=== PATIENT | female | born 1950 | race Caucasian/White ===

== ENCOUNTER 2020-06-01 15:21 | Outpatient (REF) | payer MEDICARE, SELFPAY ==
--- NOTE | 2020-06-01 | MM_ITS ---
EXAMINATION: MM SCREENING DIGITAL BREAST TOMOSYNTHESIS, BILATERAL CLINICAL INFORMATION: Screening. Asymptomatic. The lifetime risk of breast cancer based on the Tyrer-Cuzick Model is 4%. COMPARISON: Mammography: 05/27/2019, 03/19/2018 TECHNIQUE: Digital breast tomosynthesis is performed in both the craniocaudal and mediolateral oblique views along with computer-aided detection (CAD). Synthesized 2D images are generated from the tomosynthesis. Additional left MLO view is provided. FINDINGS: There are scattered areas of fibroglandular density (ACR BI-RADS breast composition Category b). There are no significant masses, abnormal calcifications, or other abnormalities. The axillary nodes are stable. The skin contours are smooth. No significant changes. IMPRESSION: No mammographic evidence of malignancy. ASSESSMENT: BI-RADS 1: Negative RECOMMENDATION: Routine annual mammography screening. This patient's information was entered into a reminder system with a target due date for their next mammogram.
== END 2020-06-01 15:22 | disposition home or self-care (01) ==
LOC: HO.MAMMO 15:21
PROVIDERS: PCP Internal Medicine; Visit Provider Internal Medicine
DX: Z12.31 Encounter for screening mammogram for malignant neoplasm of breast (principal)
CPT/HCPCS: 77063; 77067

== ENCOUNTER 2020-08-25 11:37 | Outpatient (REF) | payer MEDICARE, SELFPAY ==
[2020-08-25 13:38] LABS: MANUAL DIFF FLAG NO
[2020-08-25 13:50] LABS: Basophils Absolute Auto 0.1 X10*3/uL (0.0-0.2); Basophils Percent Auto 0.7 % (0-2); Eosinophils Absolute Auto 0.2 X10*3/uL (0.0-0.4); Hematocrit 41.5 % (37-47); Hemoglobin 13.8 g/dl (12.0-16.0); Imm Gran Abs Auto 0.02 X10*3/uL (0.00-0.03); Imm Gran Pct Auto 0.2 % (0.0-0.4); Lymphocytes Absolute Auto 2.5 X10*3/uL (1.2-4.9); Mean Corpuscular HGB Conc 33.3 g/dl (31.0-35.0); Mean Corpuscular Hemoglobin 30.9 pg (27.0-33.0); Mean Corpuscular Volume 92.8 fL (80-98); Monocytes Absolute Auto 0.7 X10*3/uL (0.1-1.2); Monocytes Percent Auto 7.6 % (2-11); Neutrophils Absolute Auto 5.5 X10*3/uL (2.0-8.3); Neutrophils Percent Auto 61.5 % (45-73); Platelet Count 402 X10*3/uL (160-400); Red Blood Count 4.47 X10*6/uL (4.20-5.50); Red Cell Distribution Width 12.9 % (11.0-16.0)
[2020-08-25 14:17] LABS: Alanine Aminotransferase 21 U/L (0-31); Albumin Level 4.2 g/dL (3.5-5.0); Alkaline Phosphatase 96 U/L (39-117); Anion Gap 16 (12-20); Aspartate Amino Transferase 25 U/L (5-31); Bilirubin Total 0.2 mg/dL (0.0-1.0); Blood Urea Nitrogen 11 mg/dL (9-16); Calcium 9.1 mg/dL (8.4-10.2); Carbon Dioxide 24 mmol/L (22-29); Chloride 103 mmol/L (96-108); Estimated Glomerular Filt Rate > 60; Glucose Random 97 mg/dL (60-115); Potassium 4.5 mmol/l (3.3-5.1); Sodium 138 mmol/L (135-145); Total Protein 6.7 g/dL (6.5-8.0)
== END 2020-08-25 11:38 | disposition home or self-care (01) ==
LOC: HO.10HDL 11:37
PROVIDERS: Visit Provider Internal Medicine
DX: J44.9 Chronic obstructive pulmonary disease, unspecified (principal); E78.00 Pure hypercholesterolemia, unspecified; M81.0 Age-related osteoporosis without current pathological fracture
CPT/HCPCS: 36415; 80053; 85025

== ENCOUNTER 2021-04-12 09:03 | Day surgery (SDC) | payer MEDICARE, SELFPAY ==
[2021-04-07 09:41] VITALS: BMI 26.5
[2021-04-12 10:04] VITALS: BP 119/62; PULSE 72; RESP 16; TEMP 35.6; O2SAT 94
[2021-04-12] MEDS: Lactated Ringers 1,000 ML 50 ML IVCONT (10:13)
--- NOTE | 2021-04-12 10:16 | P.CONAN_ITS ---
[facility] Past Medical History Medical History COPD (chronic obstructive pulmonary disease) Elevated cholesterol Hearing loss Surgical History Surgical History H/O colonoscopy History of dental sikh History of hip surgery Hx of dilation and curettage History of Problems with Anesthesia: No Social History Social History Patient Tobacco Use Status: Current everyday Tobacco user Tobacco use type: Cigarette Cigarette Packs Per Day: 1 Cigarettes Per Day: 20.0 Advance Directives Information Provided: No Advance Directives on File: No Meds Allergies Allergy/AdvReac Type Severity Reaction Status Date / Time buspirone [From BUSPAR] Allergy Intermediate TREMORS,PANIC Verified 04/07/21 09:43 ATTACK prednisone [PREDNISONE] Allergy Intermediate BLEEDING, Verified 04/07/21 09:43 agitation bupropion [From WELLBUTRIN] AdvReac Severe AUDITORY Verified 04/07/21 09:43 HALLUCINATIONS aripiprazole [From ABILIFY] AdvReac Intermediate DOUBLE Verified 04/07/21 09:43 VISION,PANIC ATTACK paroxetine [From PAXIL] AdvReac Intermediate PANIC Verified 04/07/21 09:43 ATTACKS procaine [From NOVOCAIN] AdvReac Mild fregoso when Verified 04/07/21 09:43 wears off CHLORINE AdvReac Intermediate hayfever Uncoded 04/07/21 09:24 type reaction drug sensitivity AdvReac Intermediate side Uncoded 04/07/21 09:38 effects from many meds Home Medications Medication Instructions Recorded Confirmed Last Taken Type citalopram 20 mg tablet 1 tab PO DAILY 04/07/21 04/07/21 04/12/21 03:30 History latanoprost 0.005 % eye drops 1 drp OPHTHALMIC (EYE) BEDTIME 04/07/21 04/07/21 Unknown History simvastatin 40 mg tablet 1 tab PO DAILY 04/07/21 04/07/21 Unknown History Exam Exam Date and Time: April 12, 2021 1016 Height,Weight and Vital Signs: Height 5 ft 5.5 in Weight 73.482 kg Last Vital Signs Temp 96.1 F L 04/12/21 10:04 Pulse 72 04/12/21 10:04 Resp 16 04/12/21 10:04 BP 119/62 04/12/21 10:04 Pulse Ox 94 04/12/21 10:04 Airway Mallampati Class: II TM Dist: >3cm Neck ROM: Full Heart: RRR Lungs: CTA Assessment and Plan Assessment Anesthesia Assessment: Anesthesia Plan Discussed and Chart Reviewed Final Anesthetic Review History of Problems with Anesthesia: No NPO: Yes ASA Class: II Final Preanesthetic Review: Meds/Allgs Chart Reviewed, Consent Obtained/Reviewed and Anes Risks/Benef Reviewed Patient Risk: Low Procedure Risk: Low Anesthetic Plan Anesthetic Plan: MAC: Disposition: Standard PACU
--- NOTE | 2021-04-12 10:40 | MHC.SHP ---
Pre-Procedural Eval Section A Date of Service: 04/12/21 The patient is an INPATIENT: No Changes since office visit: No Cold of Flu in the past 2 weeks, No New Medical Problems, No Changes in Medication and No Patient answered all questions The History & Physical has been completed within 30 days and I have reviewed it.: Yes Section B Chief Complaint: screening Allergies: Allergies Allergy/AdvReac Type Severity Reaction Status Date / Time buspirone [From BUSPAR] Allergy Intermediate TREMORS,PANIC Verified 04/07/21 09:43 ATTACK prednisone [PREDNISONE] Allergy Intermediate BLEEDING, Verified 04/07/21 09:43 agitation bupropion [From WELLBUTRIN] AdvReac Severe AUDITORY Verified 04/07/21 09:43 HALLUCINATIONS aripiprazole [From ABILIFY] AdvReac Intermediate DOUBLE Verified 04/07/21 09:43 VISION,PANIC ATTACK paroxetine [From PAXIL] AdvReac Intermediate PANIC Verified 04/07/21 09:43 ATTACKS procaine [From NOVOCAIN] AdvReac Mild fregoso when Verified 04/07/21 09:43 wears off CHLORINE AdvReac Intermediate hayfever Uncoded 04/07/21 09:24 type reaction drug sensitivity AdvReac Intermediate side Uncoded 04/07/21 09:38 effects from many meds Plan I have reviewed the history and physical and performed a pertinent physical examination on my patient. No changes have occurred unless specified.
[2021-04-12 11:15] VITALS: BP 101/51; PULSE 69; RESP 18; TEMP 36.2; O2SAT 99
--- NOTE | 2021-04-12 11:17 | P.BOP_ITS ---
Brief Operative Note Date of Service: 04/12/21 Pre-op diagnosis: screening Post-op diagnosis: same Procedure: colonosocpy Surgeon: Harrison Mendoza Anesthesia: MAC Was an Behavior Interventionist used for this Procedure?: No Estimated blood loss (mL): 0 Pathology: none sent Condition: stable Disposition: PACU
--- NOTE | 2021-04-12 11:24 | OP_ITS ---
SURGEON: Harrison Mendoza MD INDICATIONS: Colon cancer screening and family history of colon cancer. PREOPERATIVE DIAGNOSIS: POSTOPERATIVE DIAGNOSIS: PROCEDURE PERFORMED: Colonoscopy to the terminal ileum. ESTIMATED BLOOD LOSS: COMPLICATIONS: ANESTHESIA: ASSISTANTS: SPECIMENS: MEDICATIONS: Monitored anesthesia care. DESCRIPTION OF PROCEDURE: History and physical performed. The risks and benefits of the procedure were explained to the patient. Informed consent was obtained. The patient was placed in the left lateral decubitus position. A digital rectal exam was performed and was found to be normal. The Olympus pediatric video colonoscope was introduced into the rectum and advanced to the cecum without difficulty. The cecum was identified by transillumination, palpation, and identification of ileocecal valve. Examination was performed and the scope was removed. She tolerated the procedure well and was taken to recovery area in stable condition. FINDINGS: The terminal ileum was normal. The visualized colonic mucosa was normal. There was a large amount of liquid and solid stool left, which was washed and suctioned. This limited the sensitivity examination for detection of small polyps. The patient's previously identified hyperplastic polyps were seen in the rectum, but were not biopsied as they had been biopsied in the past. There were approximately 3 that were identified, all were less than 5 mm. Retroflexed examination showed some internal hemorrhoids. IMPRESSION: Negative colonoscopy. RECOMMENDATIONS: 1. Follow up as needed. 2. Consider repeat examination in 5 years. This will be optional based on the patient's age. MD ANTHONY Major/CECILIOL / [id number]
[2021-04-12 11:30] VITALS: BP 105/60; PULSE 67; RESP 16; TEMP 36.2; O2SAT 96
== END 2021-04-12 11:55 | disposition home or self-care (01) ==
PROVIDERS: PCP Internal Medicine; Visit Provider Internal Medicine Gastroenterology
PROC: 0DJD8ZZ Inspection of Lower Intestinal Tract, Via Natural or Artificial Opening Endoscopic (ICD-10-PCS; CPT 45378; principal; 2021-04-12 10:20)
DX: Z12.11 Encounter for screening for malignant neoplasm of colon (principal); K62.1 Rectal polyp; K64.8 Other hemorrhoids; Z80.0 Family history of malignant neoplasm of digestive organs; Z83.71 Family history of colonic polyps
CPT/HCPCS: G0105

== ENCOUNTER 2021-04-14 07:14 | Outpatient (REF) | payer MEDICARE, SELFPAY ==
[2021-04-14 07:54] LABS: MANUAL DIFF FLAG NO
[2021-04-14 07:56] LABS: Basophils Percent Auto 0.4 % (0-2); Eosinophils Absolute Auto 0.3 X10*3/uL (0.0-0.4); Hematocrit 42.6 % (37-47); Hemoglobin 14.3 g/dl (12.0-16.0); Imm Gran Abs Auto 0.03 X10*3/uL (0.00-0.03); Imm Gran Pct Auto 0.3 % (0.0-0.4); Lymphocytes Absolute Auto 2.8 X10*3/uL (1.2-4.9); Lymphocytes Percent Auto 29.5 % (20-40); Mean Corpuscular HGB Conc 33.6 g/dl (31.0-35.0); Mean Corpuscular Hemoglobin 31.3 pg (27.0-33.0); Mean Corpuscular Volume 93.2 fL (80-98); Mean Platelet Volume 8.7 fL (9.4-12.3); Monocytes Absolute Auto 0.8 X10*3/uL (0.1-1.2); Neutrophils Absolute Auto 5.6 X10*3/uL (2.0-8.3); Neutrophils Percent Auto 58.8 % (45-73); Platelet Count 382 X10*3/uL (160-400); Red Blood Count 4.57 X10*6/uL (4.20-5.50); Red Cell Distribution Width 13.2 % (11.0-16.0); White Blood Count 9.5 X10*3/uL (4.8-10.8)
[2021-04-14 07:58] LABS: Glucose Urine UA NEG (NEG); Leukocyte Esterase Urine 1+ (NEG); Nitrite Urine NEG (NEG); Urine Blood NEG (NEG); Urine Ketones NEG (NEG); Urine Protein NEG (NEG-TRACE)
[2021-04-14 07:59] LABS: Appearance Urine CLEAR; Color Urine YELLOW
[2021-04-14 08:13] LABS: Bacteria Urine TRACE /LPF; Mucus Urine 2+ /LPF; RBC Urine 0-2 /HPF (0); Squamous Epithelial Cell Urine 1+ /LPF
[2021-04-14 08:18] LABS: Alanine Aminotransferase 18 U/L (0-31); Albumin Level 4.1 g/dL (3.5-5.0); Alkaline Phosphatase 98 U/L (39-117); Anion Gap 12 (12-20); Aspartate Amino Transferase 22 U/L (5-31); Bilirubin Total 0.3 mg/dL (0.0-1.0); Blood Urea Nitrogen 7 mg/dL (9-16); Calcium 9.6 mg/dL (8.4-10.2); Carbon Dioxide 27 mmol/L (22-29); Chloride 107 mmol/L (96-108); Cholesterol 164 mg/dL; Estimated Glomerular Filt Rate > 60; Glucose Fasting 96 mg/dL (60-99); HDL Cholesterol 59 mg/dL; LDL Cholesterol Calculated 78 mg/dl; Potassium 4.6 mmol/L (3.3-5.1); Sodium 141 mmol/L (135-145); Total Protein 6.3 g/dL (6.5-8.0); Triglycerides 135 mg/dL
[2021-04-14 08:39] LABS: Vitamin D 25-OH Total 41.8 ng/mL (>30)
== END 2021-04-14 07:15 | disposition home or self-care (01) ==
LOC: HO.LAB 07:14
PROVIDERS: PCP Internal Medicine; Visit Provider Internal Medicine
DX: E78.00 Pure hypercholesterolemia, unspecified (principal); M81.0 Age-related osteoporosis without current pathological fracture; Z72.0 Tobacco use
CPT/HCPCS: 36415; 80053; 80061; 81001; 82306; 85025

== ENCOUNTER 2021-06-10 13:29 | Outpatient (REF) | payer MEDICARE, SELFPAY ==
--- NOTE | ~2021-06-10 | MM_ITS ---
EXAMINATION: BONE DENSITOMETRY CLINICAL INDICATION: Menopause. COMPARISON: Previous BD dated 03/19/2018 and baseline BD dated 07/13/2008. TECHNIQUE: Using a [employer] DXA System (software version: 13.1) manufactured by [employer], dual-energy x-ray absorptiometry was performed of the lumbar spine and left hip. The images are of good technical quality. Summary results are attached. FINDINGS: AP SPINE L1-L3 (excluding L4): The data of L1-L4 has been changed to exclude the L4 vertebral body, because degenerative sclerosis at this level may cause overestimation of lumbar spine density. Current: BMD 0.997 g/cm2, Z-score 0.0, T-score -1.4, osteopenia, 2.9% decrease from previous, 2.2% decrease from baseline (<5% change is not significant). Prior: BMD 0.969 g/cm2. Baseline: BMD 1.019 g/cm2. LEFT FEMUR, NECK: Current: BMD 0.740 g/cm2, Z-score -0.5, T-score -2.1, osteopenia. Prior: BMD 0.767 g/cm2. Baseline: BMD 0.794 g/cm2. LEFT FEMUR, TOTAL: Current: BMD 0.879 g/cm2, Z-score 0.4, T-score -1.0, normal, 1.2% increase from previous, 6.9% decrease from baseline (<5% change is not significant). Prior: BMD 0.869 g/cm2. Baseline: BMD 0.944 g/cm2. IDENTIFIED RISK FACTORS: Menopause, osteoporosis, tobacco use (current smoker). HISTORY OF FRACTURE: None listed. MEDICATIONS: Calcium, vitamin D. MM/XR DEXA axial skeleton IMPRESSION: 1. DIAGNOSIS: Osteopenia based on the lowest T-score value of -2.1 in the femoral neck applying World Health Organization criteria. 2. 10-YEAR FRACTURE RISK PREDICTION, FRAX: Major osteoporotic fracture (clinical spine, forearm, hip or shoulder) 14.5%. Hip fracture 5.2%. 3. Treatment Recommendations: NOF guidelines recommend consideration for treatment in postmenopausal women and men age 50 and older presenting with the following: -A hip or vertebral (clinical or morphometric) fracture. -T-score less than or equal to -2.5 at the femoral neck or spine after appropriate evaluation to exclude secondary causes. -Low bone mass at the hip or spine and a 10-year fracture probability by FRAX of greater than or equal to 3% for hip fracture or greater than or equal to 20% for major osteoporotic fracture based on the [place] adapted WHO algorithm. 4. Other Recommendations: All treatment decisions require clinical judgment and consideration of individual patient factors, including patient preferences, comorbidities, previous drug use, risk factors not captured in the FRAX model (e.g. frailty, falls, vitamin D deficiency, increased bone turnover, interval significant decline in bone density) and possible under or overestimation of fracture risk by FRAX. Additional medical evaluation for secondary cause of low bone mineral density may be appropriate. FUTURE SCAN RECOMMENDATION: People with diagnosed cases of osteoporosis or at high risk for fracture should have regular bone mineral density tests. For patients eligible for Medicare, routine testing is allowed once every 2 years. The testing frequency can be increased to one year for patients who have rapidly progressing disease, those who are receiving or discontinuing medical therapy to restore bone mass, or have additional risk factors.
--- NOTE | ~2021-06-10 | MM_ITS ---
EXAMINATION: MM SCREENING DIGITAL BREAST TOMOSYNTHESIS, BILATERAL CLINICAL INFORMATION: Screening. Asymptomatic. The lifetime risk of breast cancer based on the Tyrer-Cuzick Model is 5%. COMPARISON: Mammography: 06/01/2020, 05/27/2019, 03/19/2018 TECHNIQUE: Digital breast tomosynthesis is performed in both the craniocaudal and mediolateral oblique views along with computer-aided detection (CAD). Synthesized 2D images are generated from the tomosynthesis. FINDINGS: There are scattered areas of fibroglandular density (ACR BI-RADS breast composition Category b). There are no significant masses, abnormal calcifications, or other abnormalities. Parenchymal pattern is similar to prior study. MM/MM tomosynthesis screening BI IMPRESSION: No mammographic evidence of malignancy. ASSESSMENT: BI-RADS 1: Negative RECOMMENDATION: Routine annual mammography screening. This patient's information was entered into a reminder system with a target due date for their next mammogram.
== END 2021-06-10 13:30 | disposition home or self-care (01) ==
LOC: HO.MAMMO 13:29
PROVIDERS: Visit Provider Internal Medicine
DX: Z12.31 Encounter for screening mammogram for malignant neoplasm of breast (principal); Z13.820 Encounter for screening for osteoporosis; M85.80 Other specified disorders of bone density and structure, unspecified site; Z78.0 Asymptomatic menopausal state; Z79.899 Other long term (current) drug therapy
CPT/HCPCS: 77063; 77067; 77080

== ENCOUNTER 2021-08-19 12:59 | Outpatient (REF) | payer MEDICARE, SELFPAY ==
--- NOTE | ~2021-08-19 | CT_ITS ---
EXAMINATION: CT CHEST SCREENING CLINICAL INFORMATION: Current smoker. Half pack day 40 years. COMPARISON: CT chest 02/10/2020 TECHNIQUE: Multidetector volumetric CT imaging of the chest is performed without contrast using low dose technique. Additional 2-D coronal and sagittal reformatted images and axial 3-D maximum intensity projection (MIP) images are generated on the CT workstation. This CT examination was performed using dose optimization techniques as appropriate, variously including the following: *Automated exposure control *Adjustment of mA and/or kV according to patient size (this includes techniques or standardized protocols for targeted exams where dose is matched to indication/reason for exam; i.e. extremities or head) *Use of iterative reconstruction technique DLP: 43 mGy-cm FINDINGS: LUNGS: Again visualized is a punctate 2 mm calcified nodule right upper lobe axial image 141/6, stable. There is a 7 mm left apical ground-glass density, axial image 11/4, new since the last exam. No additional nodules, mass or ground-glass density seen. There is no consolidation. MEDIASTINUM: The thyroid lobes are symmetrical and normal. The central trachea and the bronchi are widely patent. The heart size and great vessels are normal caliber. There is no pericardial effusion. No abnormal sized mediastinal or hilar lymph nodes seen. PLEURA: There is bilateral apical pleural thickening. No pleural effusion or calcification seen. AXILLA: No abnormal axillary lymph nodes. The chest wall is unremarkable. UPPER ABDOMEN: Visualized liver, spleen, pancreas, and adrenal glands are unremarkable. There is a small fatty density seen in the IVC on axial image 51/3, likely small intramural lipoma. It is unchanged to previous exam 02/10/2020. OSSEOUS STRUCTURES: Unremarkable. CT/CT lung screening IMPRESSION: Stable 2 mm calcified nodule and bilateral apical pleural thickening. 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 ASSESSMENT: Lung-RADS category 2: Benign. RECOMMENDATION: Low-dose annual CT chest exam.
== END 2021-08-19 13:00 | disposition home or self-care (01) ==
LOC: HO.CT 12:59
PROVIDERS: PCP Internal Medicine; Visit Provider Physician Assistant Medical
DX: Z12.2 Encounter for screening for malignant neoplasm of respiratory organs (principal); F17.210 Nicotine dependence, cigarettes, uncomplicated
CPT/HCPCS: 71271

== ENCOUNTER 2021-08-24 14:13 | Outpatient (REF) | payer MEDICARE, SELFPAY ==
--- NOTE | ~2021-08-24 | FL_ITS ---
EXAMINATION: FL BARIUM SWALLOW CLINICAL INFORMATION: Dysphagia COMPARISON: None TECHNIQUE: Fluoroscopic guidance was provided for barium swallow performed by the speech and hearing department. FINDINGS: No aspiration or penetration is seen with any media. There is some mild retention seen in the vallecula with some liquids and solids. Please see speech and hearing report for detailed findings. FLUOROSCOPY TIME: 1.2 minutes DOSE AREA PRODUCT: 1.2 Griffiths per centimeter squared FL/FL barium swallow modified IMPRESSION: Fluoroscopic guidance for modified barium swallow.
--- NOTE | 2021-08-25 17:13 | MHC.SL.IMP ---
Date of Plan of Treatment: 08/24/21 Onset of Symptoms/Illness: 08/24/20 Date Treatment Started: 08/24/21 Admitting Diagnosis: Hyperplastic polyps Anxiety Elevated cholesterol Environmental allergies COPD Hearing loss Primary Speech & Language Diagnosis: R13.12 Oropharyngeal Phase Dysphagia Reason for Today's Visit: 39733 Modified Barium Swallow Study Pre-evaluation Dietary Consistencies: Regular Pre-evaluation Liquid Consistency: Thin Pre-evaluation Medication Administration: Whole with Liquid Medical History: Modified Barium Swallow Study Fluoroscopic Evaluation of Swallowing Function CPT Code 95842 Evaluation Year: 2021 Reason for Study: Patient reports hiccups, globus sensation, and coughing on liquid. Referring Physician: Dr. 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 Patient?s recent lung CT on 08/19/21 showed, ?stable 2 mm calcified nodule and bilateral apical pleural thickening. 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 Patient reports that she has had aspiration events intermittently when drinking thin liquids her entire life. She notes that in the past year, these episodes occur more frequently. She also feels that there is ?something stuck on [her] tonsils.? Patient reports significant hiccups which are on and off. She denies pain when swallowing. Oral Motor Exam Facial Symmetry: Symmetrical Mouth Occlusion: Normal Oral-Facial Teeth Characteristics: Intact/Normal Tongue Size: Normal Is patient able to manage secretions?: Yes Food and Liquid Trials: Oral Impairment: Lip Closure: Did not test Oral Impairment: Tongue Control During Bolus Hold: 0=Cohesive bolus between tongue to palatal seal Oral Impairment: Bolus Preparation/Mastication: 1=Slow prolonged chewing/mashing with complete re-collection Oral Impairment: Bolus Transport/Lingual Motion: 2=Slowed tongue motion Oral Impairment: Oral Residue: 1=Trace residue lining oral structures Oral Impairment:Initiation of Pharyngeal Swallow: 3=Bolus head in pyriforms Pharyngeal Impairment: Soft Palate Elevation: 0=No bolus between soft palate (SP)/pharyngeal wall (PW) Pharyngeal Impairment: Laryngeal Elevation: 0=Complete superior movement of thyroid cartilage (see description) Pharyngeal Impairment: Anterior Hyoid Excursion: 0=Complete anterior movement Pharyngeal Impairment: Epiglottic Movement: 0=Complete inversion Pharyngeal Impairment: Laryngeal Vestibular Closure:: 0=Complete: no air/contrast in laryngeal vestibule Pharyngeal Impairment: Pharyngeal Stripping Wave: 0=Present: complete Pharyngeal Impairment: Pharyngeal Contraction: Did not test Pharyngeal Impairment: Pharyngoesophageal Segment Openin=Complete distension and complete duration: no obstruction of flow Pharyngeal Impairment: Tongue Base (TB) Retraction: 2=Narrow column of contrast/air between TB and posterior PW Pharyngeal Impairment: Pharyngeal Residue: 1=Trace residue within or on pharyngeal structures Pharyngeal Impairment: Esophageal Clearance Upright Position: Did not test Impressions and Recommendations Clinical Observations: OBJECTIVE: Time-out: performed at 02:45 Evaluation Start: 02:30; Stop: 02:40 Patient Positioning: Standing Viewing Planes: LATERAL ONLY Contrast: MBSImP? Standardized Protocol using commercially prepared, standardized Barium viscosities, including: Varibar? THIN LIQUID (40% w/v, <15 cps) , 1/2 Shortbread Cookie (1 x1 x.25 ) MBSImP ID: [id number] MBSImP Results: Lip closure for intraoral bolus containment could not be assessed due to logistical reasons not related to physiologic impairment. Tongue control during bolus hold maintained a cohesive bolus held between tongue to palate seal. Bolus preparation and mastication resulted in slow, prolonged chewing/mashing but with complete re-collection. Bolus transport/lingual motion was with slowed tongue motion. Oral residue was a trace, lining oral structures. Initiation of the pharyngeal swallow occurred when the bolus head was in the pyriform sinuses. Soft palate elevation resulted in no bolus between the soft palate and the pharyngeal wall. Laryngeal elevation demonstrated complete superior movement of the thyroid cartilage with complete approximation of the arytenoids to the epiglottic petiole. Anterior hyoid excursion demonstrated complete anterior movement. Epiglottic movement resulted in complete inversion. Laryngeal vestibular closure was complete, as indicated by no air or contrast within the laryngeal vestibule at the height of the swallow. Pharyngeal stripping wave was present and complete. Pharyngeal contraction could not be determined due to logistical reasons not related to physiologic impairment. Pharyngoesophageal segment opening was completely distended for complete duration with no obstruction of bolus flow. Tongue base retraction allowed a narrow column of contrast or air between the retracted tongue base and the posterior pharyngeal wall. Pharyngeal residue was a trace within or on pharyngeal structures. Esophageal clearance in the upright position could not be assessed due to logistical reasons not related to physiologic impairment. Oral Impairment Score: 6 (absence of score, component 1) Pharyngeal Impairment Score: 2 (absence of score, component 13) Esophageal Impairment Score: --- (absence of score, component 17) Laryngeal Penetration and Aspiration: Neither penetration nor aspiration was observed in today's study with Cookie, Thin. ASSESSMENT: Clinician Assessment: This exam was conducted by a speech pathologist, radiologist, and rn radiology. Patient was standing for lateral view only. She trialed the following liquid and solid consistencies: 5 mL thin liquid barium, individual cup sip with bolus hold thin liquid barium, sequential cup sip thin liquid barium, pureed solid (mixture applesauce with barium paste), ground solid (mixture chicken salad with barium paste), and regular solid (Beverly Doone cookie coated with barium paste). No premature posterior spillage of bolus. Note mildly prolonged mastication, characterized by piece meal deglutition pattern with trace oral residue which subsequently cleared. Initiation of pharyngeal swallow trigger occurred when bolus head reached pyriform sinuses. No nasopharyngeal reflux. Complete laryngeal elevation with complete anterior hyoid excursion and epiglottic inversion. No evidence of aspiration or penetration with solids and liquids. No obstruction of flow through PES. Trace vallecular residue cleared with subsequent swallow. Liquid Intake Recommendation: Thin Dietary Recommendations: Regular Medication Administration: Whole with Liquid Compensatory Strategies Recommended: Sitting Upright (90 deg) Small Bites and Sips Rate of Ingestion Change Supervision during eating and or drinking: None Needed Recommendation for Speech Therapy: NA:Typical Evaluation Text Comment: PLAN: Intake Recommendations: Route: PO Diet Grade: Regular Liquid Consistencies: Thin Post-Study Functional Oral Intake Scale (FOIS): 7- Total oral intake with no restrictions No evidence of aspiration or penetration with solids and liquids. Good oral and pharyngeal clearance. Exam was unremarkable. Recommend patient to resume unmodified diet REGULAR solids/ THIN liquids. She may benefit from consult with ENT or tuck pointer helper and/or G.I. specialist for reports of increased hiccupping, sensation of food sticking to tonsils. Suggested Referrals: The patient might benefit from a referral to: Gastroenterology, Otolaryngology Therapy Recommendations: Therapy will be discontinued Prognosis for Improvement: The prognosis for the patient to meet nutritional needs by mouth is excellent based on degree of impairment. Clinician - Supplemental, Miscellaneous Communication: It is important to note MBSS objective studies are snapshots in time and Patient function might vary with factors such as time of day or concomitant medical conditions. For this reason, the final treatment plan for this patient should rest with their medical care team. Additional recommendations should be considered with the totality of the Patient in mind. Thank for the opportunity to participate in the care of this patient. If you have any questions about the content of this report, please contact the [facility] at [facility]. Education: Education regarding findings from today's study and plans for therapy were provided to Patient only through Verbal Instruction. Understanding was expressed by the Patient only. Ip Litigation Associate Clinician/Clinical Fellow: No Supervisory Statement: N/A Speech Language Pathologist: Isadora Mariano M.A., CCC-MODEL ENGINE MECHANIC
== END 2021-08-24 14:14 | disposition home or self-care (01) ==
LOC: HO.XRAY 14:13
PROVIDERS: Visit Provider Internal Medicine
DX: R13.10 Dysphagia, unspecified (principal)
CPT/HCPCS: 74230; 92611

== ENCOUNTER 2022-06-12 07:22 | Outpatient (REF) | payer MEDICARE, SELFPAY ==
[2022-06-12 07:37] LABS: MANUAL DIFF FLAG NO
[2022-06-12 07:42] LABS: Basophils Absolute Auto 0.1 X10*3/uL (0.0-0.2); Basophils Percent Auto 0.6 % (0-2); Eosinophils Absolute Auto 0.3 X10*3/uL (0.0-0.4); Eosinophils Percent Auto 3.1 % (0-4); Hematocrit 41.4 % (37.0-47.0); Hemoglobin 13.8 g/dl (12.0-16.0); Imm Gran Abs Auto 0.03 X10*3/uL (0.00-0.03); Imm Gran Pct Auto 0.3 % (0.0-0.4); Lymphocytes Percent Auto 32.2 % (20-40); Mean Corpuscular HGB Conc 33.3 g/dl (31.0-35.0); Mean Corpuscular Hemoglobin 30.9 pg (27.0-33.0); Mean Corpuscular Volume 92.8 fL (80.0-98.0); Mean Platelet Volume 8.5 fL (9.4-12.3); Monocytes Absolute Auto 0.8 X10*3/uL (0.1-1.2); Monocytes Percent Auto 8.5 % (2-11); Neutrophils Absolute Auto 5.2 x10*3/uL (2.0-8.3); Neutrophils Percent Auto 55.3 % (45-73); Platelet Count 379 X10*3/uL (160-400); Red Blood Count 4.46 X10*6/uL (4.20-5.50); White Blood Count 9.4 X10*3/uL (4.8-10.8)
[2022-06-12 08:17] LABS: Alanine Aminotransferase 20 U/L (0-31); Albumin Level 4.2 g/dL (3.5-5.0); Alkaline Phosphatase 104 U/L (39-117); Anion Gap 16 (12-20); Aspartate Amino Transferase 26 U/L (5-31); Bilirubin Total 0.3 mg/dL (0.0-1.0); Blood Urea Nitrogen 12 mg/dL (9-16); Calcium 9.2 mg/dL (8.4-10.2); Carbon Dioxide 24 mmol/L (22-29); Chloride 104 mmol/L (96-108); Cholesterol 169 mg/dL; Estimated Glomerular Filt Rate > 60; Glucose Fasting 97 mg/dL (60-99); HDL Cholesterol 65 mg/dL; LDL Cholesterol Calculated 85 mg/dl; Potassium 4.6 mmol/L (3.3-5.1); Sodium 139 mmol/L (135-145); Total Protein 6.6 g/dL (6.5-8.0); Triglycerides 96 mg/dL
[2022-06-12 08:42] LABS: Urine Cytology See Pathology rpt
[2022-06-12 08:53] LABS: Appearance Urine Cloudy; Color Urine Yellow; Glucose Urine UA Negative (Negative); Leukocyte Esterase Urine Small (1+) (Negative); Nitrite Urine Negative (Negative); PH 6.5 (5.0-9.0); Specific Gravity - Urine 1.015 (1.005-1.025); UMIC TRIGGER UA YES; Urine Blood Negative (Negative); Urine Ketones Negative (Negative); Urine Protein Negative (Neg-Trace)
[2022-06-12 09:10] LABS: Bacteria Urine None Seen (None Seen); Hyaline Casts Urine 0-2 /LPF (0-2); RBC Urine 0-2 /HPF (0-2); Squamous Epithelial Cell Urine 0-2 /HPF (0-2); WBC Urine 0-5 /HPF (0-5)
== END 2022-06-12 07:23 | disposition home or self-care (01) ==
LOC: HO.LAB 07:22
PROVIDERS: PCP Internal Medicine; Visit Provider Internal Medicine
DX: E78.00 Pure hypercholesterolemia, unspecified (principal); J44.9 Chronic obstructive pulmonary disease, unspecified; Z72.0 Tobacco use; R73.9 Hyperglycemia, unspecified
CPT/HCPCS: 36415; 80053; 80061; 81001; 85025; 88112

== ENCOUNTER 2022-06-13 12:07 | Outpatient (REF) | payer MEDICARE, SELFPAY ==
[2022-06-14 13:33] LABS: Lyme Abs Screen <0.90 index
== END 2022-06-13 12:08 | disposition home or self-care (01) ==
LOC: HO.10HDL 12:07
PROVIDERS: Visit Provider Internal Medicine
DX: T14.8XXA Other injury of unspecified body region, initial encounter (principal); W57.XXXA Bitten or stung by nonvenomous insect and other nonvenomous arthropods, initial encounter
CPT/HCPCS: 36415; 86617; 86618

== ENCOUNTER 2022-06-13 13:54 | Outpatient (REF) | payer MEDICARE, SELFPAY ==
--- NOTE | ~2022-06-13 | MM_ITS ---
EXAMINATION: MM SCREENING DIGITAL BREAST TOMOSYNTHESIS, BILATERAL CLINICAL INFORMATION: Screening. Asymptomatic. The lifetime risk of breast cancer based on the Tyrer-Cuzick Model is 4.1%. COMPARISON: Mammography: June 10, 2021 and studies dating back to March 02, 2016 TECHNIQUE: Digital breast tomosynthesis is performed in both the craniocaudal and mediolateral oblique views along with computer-aided detection (CAD). Synthesized 2D images are generated from the tomosynthesis. FINDINGS: There are scattered areas of fibroglandular density (ACR BI-RADS breast composition Category b). There are no significant masses, abnormal calcifications, or other abnormalities. MM/MM tomosynthesis screening BI IMPRESSION: No significant changes ASSESSMENT: BI-RADS 1: Negative RECOMMENDATION: Routine annual mammography screening. This patient's information was entered into a reminder system with a target due date for their next mammogram.
== END 2022-06-13 13:55 | disposition home or self-care (01) ==
LOC: HO.MAMMO 13:54
PROVIDERS: PCP Internal Medicine; Visit Provider Internal Medicine
DX: Z12.31 Encounter for screening mammogram for malignant neoplasm of breast (principal)
CPT/HCPCS: 77063; 77067

== ENCOUNTER 2023-01-10 11:02 | Outpatient (REF) | payer MEDICARE, SELFPAY ==
--- NOTE | ~2023-01-10 | XR_ITS ---
EXAMINATION: XR HIP, LEFT CLINICAL INFORMATION: Left hip pain. COMPARISON: Pelvic radiograph 10/13/2013. TECHNIQUE: Two views of the left hip. FINDINGS: No acute fractures or subluxation. Moderate joint space narrowing with subcortical sclerosis and bony productive changes of the left hip. No significant soft tissue abnormality. XR/XR hip LT min 2V IMPRESSION: 1. No acute fractures or subluxation. 2. Moderate degenerative osteoarthritis of the left hip.
== END 2023-01-10 11:03 | disposition home or self-care (01) ==
LOC: HO.XRAY 11:02
PROVIDERS: PCP Internal Medicine; Visit Provider Internal Medicine
DX: M25.552 Pain in left hip (principal)
CPT/HCPCS: 73502

== ENCOUNTER 2023-02-09 | Outpatient (REF) | payer MEDICARE, SELFPAY | END 2023-02-09 00:01 | disposition home or self-care (01) | LOC: HO.HOSX | PROVIDERS: Visit Provider Orthopaedic Surgery | DX: M16.12 Unilateral primary osteoarthritis, left hip (principal) | CPT/HCPCS: 72170; 99202 ==

== ENCOUNTER 2023-05-02 10:00 | Outpatient (RCR) | payer MEDICARE, SELFPAY ==
--- NOTE | 2023-03-06 13:08 | MHC.PT.EP ---
[facility] [place] Office [place] Office [place] Office [address] Amanda Bernal [address] [phone] F: [phone] F: [phone] F: [phone] F: [phone] Physical Therapy Plan of Care Date of Evaluation: Date of Surgery: Diagnosis: UNILAT OA LEFT HIP Assessment: 73 YO FEMALE REF TO PT WITH LEFT HIP OA. 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 SHE HAS DECR LEFT HIP AROM, SOFT TISSUE TIGHTNESS IN ITB/ Lt ANKLE DF/ ABSENT Lt HIP IR; ALTERED GAIT AND TRANSFER MECHANICS, DECR LUMBOPELVIC STAB, AND FLUCTUATING Lt HIP/ LBP. FUNCTIONALLY, THE Pt TENDS TO HABITUALLY USE TRUNK FLEX VS SQUATTING W ADLs , DECR JAME TO AMB, DIFFIC W SIT-> STAND-> AMB TRANSITION, AND STAIR NAVIGATION. SHE WOULD BENEFIT FROM A TRIAL OF PT TO REDUCE SOFT TISSUE HYPOMOBILITY, IMPROVE STRENGTH, AND INCREASE FUNCTIONAL MOBILITY . Frequency and Duration: The patient will be seen 2 x WK x 5 WKS Short Term Goals: *Pt WILL DEMON EFFICIENT GAIT MECHANICS W LEAST RESTRICTIVE ASST DEVICE ON LEVEL GROUND AND STAIRS *Pt'S LEFT HIP PAIN WILL DECR TO 2-3/10 *Pt DEMON IMPROVED POSTURE/ BODY MECH W BED MOB/ POSITIONING/ SIT <-> STAND/ CAR TRANSFERS *INITIATE HEP FOR Lt HIP AND CALF FLEXIB Retirement Goals: *Pt WILL IMPROVE LUMBOPELVIC/ Lt LE STRENGTH TO AT LEAST 5-/5 *Pt RESUME AT LEAST PLOF EVIDENT W IMPROVED LEFI SCORE (AT EVAL 23/ ) *Pt INDEP W PROGR HEP AND SELF-SX MGMT TECHN Treatment Plan: Modalities to reduce pain, spasms and effusion. Manual therapy to restore motion and function. Therapeutic exercise to improve strength and flexibility. Neuromuscular re-education for posture and balance. Therapeutic activities to return to functional activities of daily living. Electronically signed by: TOO YADAV,PT Please sign and return to therapist. Thank you for your referral.
--- NOTE | 2023-05-02 11:11 | MHC.PT.DC ---
[facility] [place] Office [place] Office [place] Office [address] Amanda Bernal [address] [phone] F: [phone] F: [phone] F: [phone] F: [phone] Physical Therapy Discharge Report Diagnosis: UNILAT OA LEFT HIP Date of Surgery: Date of Evaluation: 03/06/23 Date of Discharge: 05/02/23 Treatments to Date: 15 Cancellations to Date: 0 No Shows to Date: 0 Discharge Status: Achieved Goals Improved Function Independent with HEP Discharge Summary: THE Pt HAS PREOGRESSED WELL IN PT-> SHE HAS IMPROVED TUG (20 SEC-> 15 SEC) AND LEFI SCORES (23/80-> 44/80). SHE DEMON RECIPROCAL TECHN W STAIR MGMT AND A MORE EFFICIENT GAIT PATTERN WITH HER CANE. SHE HAS IMPROVED STRENGTH IN HER LUMBOPELVIC/ PROX LEs AND MORE TOLERABLE AROM Lt HIP (AROM WAS NOT OUR EMPHASIS, BUT IT IS IMPROVED) AND OVERALL REDUCED SUBJECTIVE PAIN. SHE HAS MET HER PT GOALS AN DIS READY FOR D/C W HER HEP AT THIS TIME. Electronically signed by: TOO YADAV,PT Please sign and return to therapist. Thank you for your referral.
== END 2023-05-02 11:12 | disposition home or self-care (01) ==
LOC: HO.PT 10:00
PROVIDERS: PCP Internal Medicine; Visit Provider Orthopaedic Surgery
DX: M16.12 Unilateral primary osteoarthritis, left hip (principal)
CPT/HCPCS: 97110; 97140; 97162; 97530

== ENCOUNTER 2023-05-11 08:43 | Outpatient (AMB) | payer MEDICARE, SELFPAY ==
--- NOTE | 2023-05-11 09:20 | A.OFFVIS_ITS ---
Intake Vital Signs 05/11/23 09:21 Height 5 ft 5 in Weight 157 lb BMI 26.1 Intake Visit Reasons: OV-left hip pain/weakness-F/U Intake Note: Gayathri is a 73 year old female who presents today for a follow up appointment of her left hip. Hx of Left hip chondroplasty, DOS: 01/13/15. Patient reports that she is doing better, she feels that the leg is feeling more stable/strong. She has been doing PT, finished her last session within the last week but continues to do home exercises. The leg does seem to still give out on her at random points of the day, she notices this mostly is happening at the end of the day. Allergies buspirone [From BUSPAR] Allergy (Intermediate, Verified 02/09/23 11:18) TREMORS,PANIC ATTACK prednisone [PREDNISONE] Allergy (Intermediate, Verified 02/09/23 11:18) BLEEDING, agitation bupropion [From WELLBUTRIN] Adverse Reaction (Severe, Verified 02/09/23 11:18) AUDITORY HALLUCINATIONS aripiprazole [From ABILIFY] Adverse Reaction (Intermediate, Verified 02/09/23 11:18) DOUBLE VISION,PANIC ATTACK paroxetine [From PAXIL] Adverse Reaction (Intermediate, Verified 02/09/23 11:18) PANIC ATTACKS procaine [From NOVOCAIN] Adverse Reaction (Mild, Verified 02/09/23 11:18) fregoso when wears off ketorolac [From Toradol] Adverse Reaction (Verified 05/11/23 09:38) dry heaving CHLORINE Adverse Reaction (Intermediate, Uncoded 02/09/23 11:18) hayfever type reaction drug sensitivity Adverse Reaction (Intermediate, Uncoded 02/09/23 11:18) side effects from many meds HPI OV-left hip pain/weakness-F/U HPI Details Gayathri is a 73 year old woman who returns to discuss her left hip OA. She has a hx of left hip chondroplasty, DOS: 01/13/15. She feels her leg feels stronger & more stable following PT. She continues to perform at-home exercises, which she finds helpful, but she says her hip will still occasionally give way on her. She says some exercises are difficult for her, either for her hip or her lower back. She says she can walk a 1/2 mile before she begins to walk with a limp. She reports hurting herself ~2 weeks ago while trying to lift a window open. She says she had several days of pain and worried she twisted something . She walked with a cane for the following few days, used heat, and took what NSAIDs she could tolerate and eventually this pain resolved She was not interested in injections at her last appointment and she is unable to take NSAIDs. She continues to work on weight management. [facility] Medical History Hearing loss COPD (chronic obstructive pulmonary disease) Elevated cholesterol Surgical History History of dental jain History of hip surgery Hx of dilation and curettage H/O colonoscopy Social History Patient Tobacco Use Status: Current everyday Tobacco user Tobacco use type: Cigarette Cigarette Packs Per Day: 1 Cigarettes Per Day: 20.0 Review of Systems Const All systems reviewed & are unremarkable except as noted in HPI and below Physical Exam Vital Signs: BMI result Body Mass Index 26.1 Const General: no acute distress, alert and awake Orientation/consciousness: patient oriented x3 HEENT Head: Yes normocephalic and Yes atraumatic Eyes EOM: EOMs intact bilaterally Resp Effort & Inspection: normal respiratory effort and able to speak in complete sentences Cardio Jugular venous distension: no JVD Skin General skin exam: turgor normal Rashes: no rashes Neuro General: patient oriented x3 Extrem Other: Left Hip: Nl gait Mildly + impingement test in deep flexion/IR full ROM Psych Appearance: grossly normal Affect: normal affect Attitude: cooperative Results Reviewed Results Reviewed: I personally reviewed relevant radiographs. Moderate degenerative osteoarthritis of the left hip. Assessment & Plan Assessment & Plan (1) Osteoarthritis of left hip: Code(s): M16.12 - Unilateral primary osteoarthritis, left hip Plan: This is a 72 year old woman with moderate left hip OA, with a Hx of hip chondroplasty, DOS: 01/13/15. She has completed her course of PT, and now feels her leg is stronger and more stable, though she continues to have pain in her groin. She continues to have issues with her hip occasionally giving way on her. She is able to ambulate for about 5 minuts mile before she begins to walk with antalgia, and she feels limited in her ADLs still. I discussed her diagnosis and treatment options, I think she would benefit from a MICAH at this point in order to be more active. I recommend a left MICAH. I discussed the risks, benefits, and alternatives including, but not limited to, the risk of pain, infection, stiffness, need for further surgery as well as potential medical complications such as blood clots, pulmonary embolism and cardiac complications. I discussed the recovery timeline and process as well as the importance of PT. Gayathri is a good candidate for this surgery, and she wishes to proceed with this decision. She will speak with Gregoria to schedule this procedure. Plan Scribed for Km Mckeon MD by Aman Kunz, senior medical director, on 05/11/23 at 10:00 AM, EST. Coding Level of Care Code Est Pt Level 4 (40326) Diagnoses Osteoarthritis of left hip M16.12
[2023-05-11 09:21] VITALS: BMI 26.1
== END 2023-05-11 11:03 | disposition home or self-care (01) ==
PROVIDERS: PCP Internal Medicine; Visit Provider Orthopaedic Surgery
DX: M16.12 Unilateral primary osteoarthritis, left hip (principal)
CPT/HCPCS: 99214

== ENCOUNTER → 2023-05-11 08:43 | Outpatient (BNVA) | payer MEDICARE, SELFPAY | PROVIDERS: PCP Internal Medicine; Visit Provider Orthopaedic Surgery | DX: M16.12 Unilateral primary osteoarthritis, left hip (principal) | CPT/HCPCS: 99212 ==

== ENCOUNTER 2023-06-15 13:54 | Outpatient (REF) | payer MEDICARE, SELFPAY | END 2023-06-15 13:55 | disposition home or self-care (01) | LOC: HO.MAMMO 13:54 | PROVIDERS: PCP Internal Medicine; Visit Provider Internal Medicine | DX: Z12.31 Encounter for screening mammogram for malignant neoplasm of breast (principal) | CPT/HCPCS: 77063; 77067 ==

== ENCOUNTER → 2023-06-15 14:00 | Outpatient (BNV) | payer MEDICARE, SELFPAY | PROVIDERS: PCP Internal Medicine; Visit Provider Radiology Diagnostic Radiology | DX: Z12.31 Encounter for screening mammogram for malignant neoplasm of breast (principal) | CPT/HCPCS: 77063; 77067 ==

== ENCOUNTER 2023-06-26 07:28 | Outpatient (REF) | payer MEDICARE, SELFPAY ==
[2023-06-26 07:50] LABS: MANUAL DIFF FLAG NO
[2023-06-26 08:24] LABS: Basophils Percent Auto 0.4 % (0-2); Eosinophils Absolute Auto 0.2 X10*3/uL (0.0-0.4); Eosinophils Percent Auto 2.5 % (0-4); Hematocrit 42.6 % (37.0-47.0); Hemoglobin 14.2 g/dl (12.0-16.0); Imm Gran Abs Auto 0.05 X10*3/uL (0.00-0.03); Imm Gran Pct Auto 0.5 % (0.0-0.4); Lymphocytes Absolute Auto 2.7 X10*3/uL (1.2-4.9); Lymphocytes Percent Auto 27.9 % (20-40); Mean Corpuscular HGB Conc 33.3 g/dl (31.0-35.0); Mean Corpuscular Hemoglobin 30.5 pg (27.0-33.0); Mean Corpuscular Volume 91.4 fL (80.0-98.0); Mean Platelet Volume 8.5 fL (9.4-12.3); Monocytes Absolute Auto 0.7 X10*3/uL (0.1-1.2); Monocytes Percent Auto 7.4 % (2-11); Neutrophils Absolute Auto 5.9 x10*3/uL (2.0-8.3); Neutrophils Percent Auto 61.3 % (45-73); Platelet Count 441 X10*3/uL (160-400); Red Blood Count 4.66 X10*6/uL (4.20-5.50); Red Cell Distribution Width 13.1 % (11.0-16.0); White Blood Count 9.6 X10*3/uL (4.8-10.8)
[2023-06-26 08:48] LABS: Alanine Aminotransferase 17 U/L (0-31); Albumin Level 4.2 g/dL (3.5-5.0); Alkaline Phosphatase 103 U/L (39-117); Anion Gap 11 (12-20); Aspartate Amino Transferase 23 U/L (5-31); Bilirubin Total 0.4 mg/dL (0.0-1.0); Blood Urea Nitrogen 14 mg/dL (9-16); Calcium 9.3 mg/dL (8.4-10.2); Carbon Dioxide 26 mmol/L (22-29); Chloride 109 mmol/L (96-108); Cholesterol 176 mg/dL (<200); Estimated Glomerular Filt Rate > 60; Glucose Fasting 96 mg/dL (60-99); HDL Cholesterol 60 mg/dL (>40); LDL Cholesterol Calculated 93 mg/dL (<100); Potassium 4.3 mmol/L (3.3-5.1); Sodium 142 mmol/L (135-145); Triglycerides 117 mg/dL (<150)
== END 2023-06-26 07:29 | disposition home or self-care (01) ==
LOC: HO.LAB 07:28
PROVIDERS: PCP Internal Medicine; Visit Provider Internal Medicine
DX: J44.9 Chronic obstructive pulmonary disease, unspecified (principal); E78.00 Pure hypercholesterolemia, unspecified
CPT/HCPCS: 36415; 80053; 80061; 85025

== ENCOUNTER 2023-07-12 10:50 | Outpatient (REF) | payer MEDICARE, SELFPAY ==
--- NOTE | ~2023-07-12 | CT_ITS ---
EXAMINATION: CT CHEST SCREENING CLINICAL INFORMATION: Current smoker with 40 pack year history. COMPARISON: Previous CTs, most recent, 08/19/2021. TECHNIQUE: Multidetector volumetric CT imaging of the chest is performed without contrast using low dose technique. Additional 2D coronal and sagittal reformatted images and axial 3D maximum intensity projection (MIP) images are generated on the CT workstation. This CT examination was performed using dose optimization techniques as appropriate, variously including the following: *Automated exposure control *Adjustment of mA and/or kV according to patient size (this includes techniques or standardized protocols for targeted exams where dose is matched to indication/reason for exam; i.e. extremities or head) *Use of iterative reconstruction technique DLP: 46 mGy-cm FINDINGS: STOCK GRADER: Hyperinflated. Aortic calcifications. LUNGS: Trachea and bronchi are patent. Left mainstem bronchus debris, likely mucus. Mild bronchial wall thickening. Hyperinflation with centrilobular emphysema. Lingular atelectasis. 3 mm residual opacity identified in the left apex, 4:12 where 7 mm groundglass opacity previously identified. MEDIASTINUM: Unremarkable thyroid. Nonspecific mediastinal lymph nodes. No pathologic lymphadenopathy. Nonenlarged heart. No pericardial effusion. Nonaneurysmal aorta with atherosclerotic calcifications. Nonenlarged pulmonary arteries. CORONARY ARTERY CALCIFICATION: None visualized on this study. PLEURA: There is no pleural effusion. No pleural mass or thickening. AXILLA: No lymphadenopathy. UPPER ABDOMEN: Unremarkable OSSEOUS STRUCTURES: Unremarkable. CT/CT lung screening IMPRESSION: Near-total resolution 7 mm groundglass opacity left apex. No new or enlarging pulmonary nodules. ASSESSMENT: Lung-RADS category 2: Benign RECOMMENDATION: Routine annual low-dose CT screening in 12 months.
== END 2023-07-12 10:51 | disposition home or self-care (01) ==
LOC: HO.CT 10:50
PROVIDERS: PCP Internal Medicine; Visit Provider Physician Assistant Medical
DX: Z12.2 Encounter for screening for malignant neoplasm of respiratory organs (principal); F17.210 Nicotine dependence, cigarettes, uncomplicated
CPT/HCPCS: 71271

== ENCOUNTER → 2023-07-31 09:43 | Outpatient (BNVA) | payer MEDICARE, SELFPAY | PROVIDERS: PCP Internal Medicine; Visit Provider Orthopaedic Surgery ==

== ENCOUNTER 2023-08-17 12:31 | Outpatient (REF) | payer MEDICARE, SELFPAY ==
[2023-08-17 13:13] LABS: Influenza A PCR NEGATIVE (Negative); Influenza B PCR NEGATIVE (Negative); Resp Syncy Virus RNA Qual PCR POSITIVE (Negative); SARS COV2 PCR INHOUSE NEGATIVE (Negative)
== END 2023-08-17 12:32 | disposition home or self-care (01) ==
LOC: HO.LNP 12:31
PROVIDERS: Visit Provider Internal Medicine
DX: R05.9 Cough, unspecified (principal); R06.2 Wheezing; Z11.52 Encounter for screening for COVID-19
CPT/HCPCS: 0241U

== ENCOUNTER → 2023-08-28 13:04 | Outpatient (BNV) | payer MEDICARE, SELFPAY | PROVIDERS: Admitting Provider Orthopaedic Surgery; PCP Internal Medicine; Visit Provider Internal Medicine | DX: Z01.818 Encounter for other preprocedural examination (principal); M16.12 Unilateral primary osteoarthritis, left hip | CPT/HCPCS: 93010 ==

== ENCOUNTER 2023-10-24 11:45 | Outpatient (REF) | payer MEDICARE, SELFPAY ==
[2023-10-24 13:22] LABS: MANUAL DIFF FLAG NO
[2023-10-24 13:33] LABS: Basophils Absolute Auto 0.1 X10*3/uL (0.0-0.2); Basophils Percent Auto 0.5 % (0-2); Eosinophils Absolute Auto 0.2 X10*3/uL (0.0-0.4); Eosinophils Percent Auto 1.3 % (0-4); Hematocrit 41.6 % (37.0-47.0); Hemoglobin 13.8 g/dl (12.0-16.0); Imm Gran Abs Auto 0.04 X10*3/uL (0.00-0.03); Imm Gran Pct Auto 0.3 % (0.0-0.4); Lymphocytes Absolute Auto 2.2 X10*3/uL (1.2-4.9); Lymphocytes Percent Auto 18.8 % (20-40); Mean Corpuscular HGB Conc 33.2 g/dl (31.0-35.0); Mean Corpuscular Hemoglobin 31.1 pg (27.0-33.0); Mean Corpuscular Volume 93.7 fL (80.0-98.0); Mean Platelet Volume 8.7 fL (9.4-12.3); Monocytes Absolute Auto 0.7 X10*3/uL (0.1-1.2); Monocytes Percent Auto 5.8 % (2-11); Neutrophils Absolute Auto 8.4 x10*3/uL (2.0-8.3); Neutrophils Percent Auto 73.3 % (45-73); Platelet Count 406 X10*3/uL (160-400); Red Blood Count 4.44 X10*6/uL (4.20-5.50); White Blood Count 11.5 X10*3/uL (4.8-10.8)
[2023-10-24 13:40] LABS: Anion Gap 10 (12-20); Blood Urea Nitrogen 17 mg/dL (9-16); Calcium 9.5 mg/dL (8.4-10.2); Carbon Dioxide 27 mmol/L (22-29); Chloride 104 mmol/L (96-108); Estimated Glomerular Filt Rate > 60; Glucose Random 99 mg/dL (60-115); Potassium 4.2 mmol/L (3.3-5.1); Sodium 137 mmol/L (135-145)
== END 2023-10-24 11:46 | disposition home or self-care (01) ==
LOC: HO.10HDL 11:45
PROVIDERS: Visit Provider Internal Medicine
DX: Z01.818 Encounter for other preprocedural examination (principal)
CPT/HCPCS: 36415; 80048; 85025

== ENCOUNTER 2023-11-15 09:39 | Outpatient (REF) | payer MEDICARE, SELFPAY ==
--- NOTE | ~2023-11-15 | XR_ITS ---
EXAMINATION: XR HIP, LEFT CLINICAL INFORMATION: Pain COMPARISON: None available. TECHNIQUE: Two views of the left hip one view of the pelvis. FINDINGS: There is bilateral hip arthritis left greater than right. Bones of the pelvis are normal. There is a small soft tissue ossification or calcification adjacent to the superior lateral left hip joint. There are degenerative changes of the visualized lower lumbar spine. No fracture or dislocation. XR/XR hip LT min 2V IMPRESSION: Bilateral hip osteoarthritis, left greater than right.
== END 2023-11-15 09:40 | disposition home or self-care (01) ==
LOC: HO.HOSX 09:39
PROVIDERS: Visit Provider Physician Assistant
DX: Z01.818 Encounter for other preprocedural examination (principal); M16.12 Unilateral primary osteoarthritis, left hip
CPT/HCPCS: 73502; 99212

== ENCOUNTER 2023-11-15 10:56 | Outpatient (AMB) | payer MEDICARE, SELFPAY ==
--- NOTE | 2023-11-15 11:26 | A.OFFVIS_ITS ---
Intake Intake Visit Reasons: Pre Op LT MICAH 11/21/23 NE Intake Note: Gayathri is a 73 year old female who presents today for a pre op appointment for her LT MICAH 11/21/23 NE. Patient reports having 2 locations for rehab that she prefers. She also was wondering about any NSAIDs since she cant tolerate them well. Allergies buspirone [From BUSPAR] Allergy (Intermediate, Verified 11/15/23 11:31) TREMORS,PANIC ATTACK prednisone [PREDNISONE] Allergy (Intermediate, Verified 11/15/23 11:31) BLEEDING, agitation bupropion [From WELLBUTRIN] Adverse Reaction (Severe, Verified 11/15/23 11:31) AUDITORY HALLUCINATIONS aripiprazole [From ABILIFY] Adverse Reaction (Intermediate, Verified 11/15/23 11:31) DOUBLE VISION,PANIC ATTACK ketorolac [From Toradol] Adverse Reaction (Intermediate, Verified 11/15/23 11:31) dry heaving paroxetine [From PAXIL] Adverse Reaction (Intermediate, Verified 11/15/23 11:31) PANIC ATTACKS procaine [From NOVOCAIN] Adverse Reaction (Mild, Verified 11/15/23 11:31) fregoso when wears off CHLORINE Adverse Reaction (Intermediate, Uncoded 02/09/23 11:18) hayfever type reaction drug sensitivity Adverse Reaction (Intermediate, Uncoded 02/09/23 11:18) side effects from many meds HPI Pre Op LT MICAH 11/21/23 NE HPI Details 73-year-old female who presents in the [facility] today for her preoperat renee history and physical exam prior to a left total hip arthroplasty to be performed on 11/21/[address] Km Mckeon. Patient denies a history of blood clots or bleeding disorders. She has taken Klonopin in the past and baby Aspirin. She states she would get bruising with a nose bleed should could not get to stop. Patient reports having 2 locations for rehab that she is interested in. She is also wondering about NSAIDs since she can not tolerated them well. Patient states after a prior procedure she was given Propofol and she states she was disoriented and unable to speak. She states she had to be kept over night for further evaluation. Patient reports she dry heaves with NSAIDs and is unable to take them. Patient states she has no affect from Percocet. She states when her pain is bad she can take 2 Percocet and an Aspirin to give her relief. Patient denies taking Dilaudid. Patient has an allergy history, as follows: -Buspirone; tremors, panic attack -Prednisone; bleeding, agitation -Bupropion; auditory hallucinations -Aripiprazole; double vision, panic kayla ck -Ketorolac; dry heaving -Paroxetine; panic attack -Procaine; burning when wears off -Chlorine; hay fever type reaction Patient is currently taking, as follows: -Ascorbic acid ER 500 mg PO bedtime -Cholecalciferol 50 mcg PO QAM -Citalopram 10 mg PO QAM -Lactobacillus comb no. 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 Are you a primary career advisor to a significant other at home: No Do you presently have visiting nurse or other home services: No Patient Tobacco Use Status: Current everyday Tobacco user Tobacco use type: Cigarette Cigarette Packs Per Day: 1 Cigarettes Per Day: 10 Years Smoked: 40 Review of Systems Const All systems reviewed & are unremarkable except as noted in HPI and below Physical Exam Const General: no acute distress, alert and awake Orientation/consciousness: patient oriented x3 HEENT Head: Yes normocephalic and Yes atraumatic Eyes EOM: EOMs intact bilaterally Resp Effort & Inspection: normal respiratory effort and able to speak in complete sentences Cardio Jugular venous distension: no JVD Skin General skin exam: turgor normal Rashes: no rashes Neuro General: patient oriented x3 Extrem Other: Left Hip: Skin clean and intact. Nl gait Mildly + impingement test in deep flexion/IR full ROM Psych Appearance: grossly normal Affect: normal affect Attitude: cooperative Assessment & Plan Assessment & Plan (1) Osteoarthritis of left hip: Code(s): M16.12 - Unilateral primary osteoarthritis, left hip Qualifiers: Osteoarthritis type: unspecified Qualified Code(s): M16.12 - Unilateral primary osteoarthritis, left hip Plan Ms. Jha is a 73-year-old female who presents in the office today for her preoperative history and physical exam prior to a left total hip arthroplasty to be performed on 11/21/[address] Km Mckeon. Patient denies a history of blood clots or bleeding disorders. She has taken Klonopin in the past and baby Aspirin. She states she would get bruising with a nose bleed should could not get to stop. Patient reports having 2 locations for rehab that she is interested in. She is also wondering about NSAIDs since she can not tolerated them well. Patient states after a prior procedure she was given Propofol and she states she was disoriented and unable to speak for one day post op. She states she had to be kept over night for further evaluation. Patient reports she dry heaves with all NSAIDs and is unable to take them. Patient has an allergy history, as follows: -Buspirone; tremors, panic attack -Prednisone; bleeding, agitation -Bupropion; auditory hallucinations -Aripiprazole; double vision, panic attack -Ketorolac; dry heaving -Paroxetine; panic attack -Procaine; burning when wears off -Chlorine; hay fever type reaction Patient is currently taking, as follows: -Ascorbic acid ER 500 mg PO bedtime -Cholecalciferol 50 mcg PO QAM -Citalopram 10 mg PO QAM -Lactobacillus comb no. 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 I discussed in detail the procedure and what to expect pre and post operatively. We discussed the risks, benefits and alternatives to the surgery as well as the rehabilitation course. The risks; which include, but are not limited to infection, bleeding, nerve injury, ongoing pain, swelling, and stiffness, perioperative risk of injury to bones and soft tissues, and blood clots. I have answered all questions and with their understanding they have consented to move forward with a left total hip arthroplasty to be performed on 11/21/[address] Km Mckeon. My business card was provided to the patient while in the office today. Follow up will be at the post operative appointment on 12/06/2023 at 2:15 pm, or sooner if needed. X-rays of the left hip which were obtained in the office today for surgical planning. Patient Instructions: Scribed by Arabella Fabian manager medical, for Shannon Larsen PA-C on 11/15/2023 at 10:59 am, EST. Coding Level of Care Code Global (45044) Diagnoses Osteoarthritis of left hip, unspecified osteoarthritis type M16.12 Osteoarthritis type: unspecified
== END 2023-11-15 12:06 | disposition home or self-care (01) ==
PROVIDERS: PCP Internal Medicine; Visit Provider Physician Assistant
DX: M16.12 Unilateral primary osteoarthritis, left hip (principal)
CPT/HCPCS: 99024

== ENCOUNTER 2023-11-21 06:52 | Inpatient (IN) | payer MEDICARE, SELFPAY ==
--- NOTE | 2023-08-28 | ECG_ITS ---
Test Reason : PREOP Blood Pressure : / mmHG Vent. Rate : 070 BPM Atrial Rate : 070 BPM P-R Int : 188 ms QRS Dur : 076 ms QT Int : 392 ms P-R-T Axes : 084 084 074 degrees QTc Int : 423 ms Normal sinus rhythm Normal ECG No previous ECGs available Referred By: Sarah Rojas Electronically Signed By:RADHA KERN
[2023-08-28 12:14] VITALS: BP 121/60; PULSE 74; RESP 20; O2SAT 95; BMI 26.3
--- NOTE | 2023-08-28 12:29 | HO.ANESPROP2 ---
HPI - Anesthesia Eval Consult details Narrative: 73yo F for Left Hip Total Replacement Recent RSV. Resolving. Pending PCP clear. No CP/SOB within limits of pain. Rare C[place]AM when carrying heavy objects. COPD/Smoker. No inhalers rx'd Hx of long to wake after GA for hip in 2014. Req'd admit to obs. All documentation references N/V. Scop patch ordered. Hearing aides Dry heaves from NSAIDs/Toradol. PMFSH Active Problems Active Problems: All Active Problems (Updated 08/28/23 @ 12:20 by Joann Dawn RN) Osteoarthritis of left hip (Acute) Past Medical History Medical History (Updated 08/28/23 @ 12:20 by Joann Dawn RN) Alcohol dependence in remission Family history of anesthesia complication Anesthesia complication Arthritis Depression RSV (respiratory syncytial virus infection) Hearing loss COPD (chronic obstructive pulmonary disease) Elevated cholesterol Surgical History Surgical History (Updated 08/27/23 @ 10:57 by Joann Dawn RN) History of dental anabaptist History of hip surgery Hx of dilation and curettage H/O colonoscopy History of Problems with Anesthesia: No Social History Social History Household Members Other:: 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, daughter lives in one of the apartments Are you a primary long term acute care registered nurse to a significant other at home: No Do you presently have visiting nurse or other home services: No Patient Tobacco Use Status: Current everyday Tobacco user Tobacco use type: Cigarette Cigarette Packs Per Day: 1 Cigarettes Per Day: 10 Years Smoked: 40 Meds Allergies Allergy/AdvReac Type Severity Reaction Status Date / Time buspirone [From BUSPAR] Allergy Intermediate TREMORS,PANIC Verified 02/09/23 11:18 ATTACK prednisone [PREDNISONE] Allergy Intermediate BLEEDING, Verified 02/09/23 11:18 agitation bupropion [From WELLBUTRIN] AdvReac Severe AUDITORY Verified 02/09/23 11:18 HALLUCINATIONS aripiprazole [From ABILIFY] AdvReac Intermediate DOUBLE Verified 02/09/23 11:18 VISION,PANIC ATTACK ketorolac [From Toradol] AdvReac Intermediate dry heaving Verified 08/27/23 10:58 paroxetine [From PAXIL] AdvReac Intermediate PANIC Verified 02/09/23 11:18 ATTACKS procaine [From NOVOCAIN] AdvReac Mild fregoso when Verified 02/09/23 11:18 wears off CHLORINE AdvReac Intermediate hayfever Uncoded 02/09/23 11:18 type reaction drug sensitivity AdvReac Intermediate side Uncoded 02/09/23 11:18 effects from many meds Home Medications Medication Instructions Recorded Confirmed Last Taken Type latanoprost 0.005 % eye drops 1 drp ophthalmic (eye) BEDTIME 04/07/21 08/28/23 Unknown History simvastatin 40 mg tablet 40 mg PO BEDTIME 04/07/21 08/28/23 Unknown History nystatin 500,000 unit tablet 1,000,000 unit PO BID 07/31/23 08/28/23 Unknown History ascorbic acid (vitamin C) 500 mg 500 mg PO BEDTIME 08/28/23 08/28/23 Unknown History capsule,extended release (Vitamin C) cholecalciferol (vitamin D3) 50 50 mcg PO QAM 08/28/23 08/28/23 Unknown History mcg (2,000 unit) capsule (Vitamin D3) citalopram 10 mg tablet 10 mg PO QAM 08/28/23 08/28/23 Unknown History lactobacillus comb no.10 20 20,000 mmu cells PO QAM 08/28/23 08/28/23 Unknown History billion cell capsule (Probiotic) multivitamin 1 tab PO QAM 08/28/23 08/28/23 Unknown History Exam Height,Weight and Vital Signs: Height 5 ft 5 in Weight 71.7 kg Last Vital Signs Pulse 74 08/28/23 12:14 Resp 20 08/28/23 12:14 BP 121/60 08/28/23 12:14 Pulse Ox 95 08/28/23 12:14 O2 Del Method Room Air 08/28/23 12:14 Pertinent Lab Results Pertinent Lab Results: Laboratory Tests 06/26/23 07:49 WBC 9.6 Hgb 14.2 Hct 42.6 Plt Count 441 H Sodium 142 Potassium 4.3 Chloride 109 H Carbon Dioxide 26 BUN 14 Creatinine 0.81 Airway TM Dist: >3cm Neck ROM: Full Loose/Missing/Broken Teeth: Yes (4 x molar implants) Heart: RRR Lungs: CTAB Assessment and Plan Assessment Anesthesia Assessment: Anesthesia Plan Discussed, Smoking Cess. Discussed and PAT Visit Final Anesthetic Review History of Problems with Anesthesia: No
[2023-08-28 14:58] LABS: MRSA Nasal PCR NEGATIVE (Negative); SA Nasal PCR NEGATIVE (Negative)
--- NOTE | 2023-11-02 16:16 | HP_ITS ---
DATE OF SERVICE: 11/21/2023 HISTORY OF PRESENT ILLNESS: The patient is a 73-year-old female who was seen in the office for preop evaluation on October 23 this year. The patient is scheduled for left total hip replacement with Dr. Mckeon on November 20. The patient had previously been scheduled but surgery had to be postponed because she develops RSV infection. PAST MEDICAL HISTORY: Significant for COPD, ongoing tobacco use, elevated cholesterol, hard of hearing, osteopenia, depression, history of colon polyps, glaucoma, osteoarthritis of the hands. 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 She uses bilateral hearing aids. FAMILY HISTORY: Mother at 74. Father at 72. He had colon cancer and coronary artery disease. She has 8 sisters and 1 brother. SOCIAL HISTORY: She is , lives along, has 2 daughters. 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 ALLERGIES: SHE LISTS ALLERGIES TO WELLBUTRIN AND BUSPAR. REVIEW OF SYSTEMS: Her weight has been stable. No fevers or chills. Some occasional night sweats. No headaches or dizziness. No palpitations or chest pain. No peripheral edema. She has had chronic cough from smoking. Some dyspnea with exertion, climbing stairs. Occasional heartburn. No abdominal pain. No dysuria, osteoarthritis of the knees, hips and hands. Sleeping is normal. Appetite is good. She does get allergic rhinitis. No skin complaints. PHYSICAL EXAMINATION: GENERAL: She is awake and alert. VITAL SIGNS: Temperature is 97.9, pulse 84, respirations 12, pressure 120/60. Weight is 158, height is 5 feet 5 inches. HEENT: TMs clear. Pharynx clear. NECK: Supple. No lymph nodes, bruits or masses. HEART: Sounds S1 and S2. Regular rate and rhythm. LUNGS: Clear but distant. ABDOMEN: Soft and nontender with positive bowel sounds. No HSM. EXTREMITIES: No clubbing, cyanosis, or edema. 2+ pulses. NEUROLOGICAL: Nonfocal. Intact other than hard of hearing. Cranial nerves II through XII intact. PRESENT MEDICATIONS: Two eyedrops for glaucoma, simvastatin 40, citalopram 20, vitamin D is 1000 international units a day. EKG was done in the office shows sinus rhythm, no ischemic changes. RSR prime in V1 is within normal limits. ASSESSMENT AND PLAN: She is medically stable for the proposed procedure. I will be available if there are any medical issues. She does have some underlying COPD, so attention should be paid to respiratory status perioperatively and postoperatively. Reese Umanzor MD FC/MODL / [id number]
[2023-11-05 14:07] VITALS: BP 135/60; PULSE 74; RESP 20; O2SAT 97; BMI 26.6
--- NOTE | 2023-11-05 14:17 | P.CONAN_ITS ---
Documented by User: Sarah Rojas NP 11/20/23 09:20 HPI - Anesthesia Eval Consult details Narrative: 73yo F for Left Hip Total Replacement, 11/21/23 Medically cleared RSV 08/2023 (surgery previously postponed until optimized) No CP/SOB within limits of pain Vague post op issue 2014. ? PONV vs alt mental status vs ADR from toradol. Pt reports confusion/dry heaving, but states not PONV. Old record available on chart only alludes to PONV. Will premed for PONV with aponvie to avoid anticholinergic side effects. Discussed with patient. Agreeable with plan COPD. Current smoker. No treatment for COPD PMFSH Active Problems Active Problems: All Active Problems (Updated 11/05/23 @ 14:05 by Joann Dawn RN) Osteoarthritis of left hip (Acute) Past Medical History Medical History Alcohol dependence in remission Family history of anesthesia complication Anesthesia complication Arthritis Depression RSV (respiratory syncytial virus infection) Hearing loss COPD (chronic obstructive pulmonary disease) Elevated cholesterol Surgical History Surgical History History of dental jainism History of hip surgery Hx of dilation and curettage H/O colonoscopy History of Problems with Anesthesia: No Social History Social History Household Members Other:: 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 If so, by whom?: No Are you DNR?: No Advance Directives: No Advance Directives on File: No Recently lost weight without trying: No Eating poorly because of decreased appetite: No Nutrition Risks: No Nutritional Risk Poor oral hygiene: No (4 implants) Meds Allergies Allergy/AdvReac Type Severity Reaction Status Date / Time buspirone [From BUSPAR] Allergy Intermediate TREMORS,PANIC Verified 11/15/23 11:31 ATTACK prednisone [PREDNISONE] Allergy Intermediate BLEEDING, Verified 11/15/23 11:31 agitation bupropion [From WELLBUTRIN] AdvReac Severe AUDITORY Verified 11/15/23 11:31 HALLUCINATIONS aripiprazole [From ABILIFY] AdvReac Intermediate DOUBLE Verified 11/15/23 11:31 VISION,PANIC ATTACK ketorolac [From Toradol] AdvReac Intermediate dry heaving Verified 11/15/23 11:31 paroxetine [From PAXIL] AdvReac Intermediate PANIC Verified 11/15/23 11:31 ATTACKS procaine [From NOVOCAIN] AdvReac Mild fregoso when Verified 11/15/23 11:31 wears off CHLORINE AdvReac Intermediate hayfever Uncoded 02/09/23 11:18 type reaction drug sensitivity AdvReac Intermediate side Uncoded 02/09/23 11:18 effects from many meds Home Medications ?Medication ?Instructions ?Recorded ?Confirmed ?Last Taken ?Type latanoprost 0.005 % eye drops 1 drp ophthalmic (eye) BEDTIME 04/07/21 08/28/23 11/20/23 History simvastatin 40 mg tablet 40 mg PO BEDTIME 04/07/21 08/28/23 11/20/23 History ascorbic acid (vitamin C) 500 mg 500 mg PO BEDTIME 08/28/23 08/28/23 11/20/23 History capsule,extended release (Vitamin C) cholecalciferol (vitamin D3) 50 50 mcg PO QAM 08/28/23 08/28/23 11/20/23 History mcg (2,000 unit) capsule (Vitamin D3) citalopram 10 mg tablet 10 mg PO QAM 08/28/23 08/28/23 11/20/23 History lactobacillus comb no.10 20 20,000 mmu cells PO QAM 08/28/23 08/28/23 11/20/23 History billion cell capsule (Probiotic) multivitamin 1 tab PO QAM 08/28/23 08/28/23 11/20/23 History Exam Height,Weight and Vital Signs: Height 5 ft 5 in Weight 72.4 kg Last Vital Signs Pulse 74 11/05/23 14:07 Resp 20 11/05/23 14:07 BP 135/60 11/05/23 14:07 Pulse Ox 97 11/05/23 14:07 O2 Del Method Room Air 11/05/23 14:07 Pertinent Lab Results Pertinent Lab Results: Laboratory Tests 08/28/23 08/28/23 12:30 13:03 Nasal Screen MRSA (PCR) NEGATIVE Nasal S. aureus Screen NEGATIVE Nasal MRSA/S.aureus Interp SEE NOTE Blood Type O Negative Antibody Screen NEGATIVE Laboratory Tests 10/24/23 11:50 WBC 11.5 H Hgb 13.8 Hct 41.6 Plt Count 406 H Sodium 137 Potassium 4.2 Chloride 104 Carbon Dioxide 27 BUN 17 H Creatinine 0.73 Narrative Narrative: EKG 08/2023 Vent. Rate : 070 BPM Atrial Rate : 070 BPM P-R Int : 188 ms QRS Dur : 076 ms QT Int : 392 ms P-R-T Axes : 084 084 074 degrees QTc Int : 423 ms Normal sinus rhythm Normal ECG No previous ECGs available Airway Mallampati Class: II TM Dist: >3cm Neck ROM: Full Loose/Missing/Broken Teeth: Yes (implants, cap molar) Heart: RRR Lungs: CTAB Assessment and Plan Assessment Anesthesia Assessment: Anesthesia Plan Discussed and PAT Visit Final Anesthetic Review History of Problems with Anesthesia: No Documented by User: Mila Vicente MD 11/21/23 08:27 ON LICENSE OF [facility] Past Medical History Medical History Alcohol dependence in remission Family history of anesthesia complication Anesthesia complication Arthritis Depression RSV (respiratory syncytial virus infection) Hearing loss COPD (chronic obstructive pulmonary disease) Elevated cholesterol Family History Family history of problems with anesthesia: No Surgical History Surgical History History of dental jainism History of hip surgery Hx of dilation and curettage H/O colonoscopy Social History Social History Household Members Other:: 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 If so, by whom?: No Are you DNR?: No Advance Directives: No Advance Directives on File: No Recently lost weight without trying: No Eating poorly because of decreased appetite: No Nutrition Risks: No Nutritional Risk Poor oral hygiene: No (4 implants) Meds Allergies Allergy/AdvReac Type Severity Reaction Status Date / Time buspirone [From BUSPAR] Allergy Intermediate TREMORS,PANIC Verified 11/15/23 11:31 ATTACK prednisone [PREDNISONE] Allergy Intermediate BLEEDING, Verified 11/15/23 11:31 agitation bupropion [From WELLBUTRIN] AdvReac Severe AUDITORY Verified 11/15/23 11:31 HALLUCINATIONS aripiprazole [From ABILIFY] AdvReac Intermediate DOUBLE Verified 11/15/23 11:31 VISION,PANIC ATTACK ketorolac [From Toradol] AdvReac Intermediate dry heaving Verified 11/15/23 11:31 paroxetine [From PAXIL] AdvReac Intermediate PANIC Verified 11/15/23 11:31 ATTACKS procaine [From NOVOCAIN] AdvReac Mild fregoso when Verified 11/15/23 11:31 wears off CHLORINE AdvReac Intermediate hayfever Uncoded 02/09/23 11:18 type reaction drug sensitivity AdvReac Intermediate side Uncoded 02/09/23 11:18 effects from many meds Home Medications ?Medication ?Instructions ?Recorded ?Confirmed ?Last Taken ?Type latanoprost 0.005 % eye drops 1 drp ophthalmic (eye) BEDTIME 04/07/21 08/28/23 11/20/23 History simvastatin 40 mg tablet 40 mg PO BEDTIME 04/07/21 08/28/23 11/20/23 History ascorbic acid (vitamin C) 500 mg 500 mg PO BEDTIME 08/28/23 08/28/23 11/20/23 History capsule,extended release (Vitamin C) cholecalciferol (vitamin D3) 50 50 mcg PO QAM 08/28/23 08/28/23 11/20/23 History mcg (2,000 unit) capsule (Vitamin D3) citalopram 10 mg tablet 10 mg PO QAM 08/28/23 08/28/23 11/20/23 History lactobacillus comb no.10 20 20,000 mmu cells PO QAM 08/28/23 08/28/23 11/20/23 History billion cell capsule (Probiotic) multivitamin 1 tab PO QAM 08/28/23 08/28/23 11/20/23 History Assessment and Plan Assessment Anesthesia Assessment: Chart Reviewed Final Anesthetic Review Family History of Problems with Anesthesia: No NPO: Yes ASA Class: III Final Preanesthetic Review: No Changes in Pt Med Stat, Meds/Allgs Chart Reviewed , Consent Obtained/Reviewed and Anes Risks/Benef Reviewed Patient Risk: Intermediate Procedure Risk: Intermediate Anesthetic Plan Anesthetic Plan: GA Disposition: Standard PACU
[2023-11-05 16:32] LABS: MRSA Nasal PCR NEGATIVE (Negative); SA Nasal PCR NEGATIVE (Negative)
[2023-11-21] VITALS (15 sets, daily range): BP systolic 104–156; BP diastolic 46–79; PULSE 70–92; RESP 14–20; TEMP 36.1–36.7; O2SAT 93–98
--- NOTE | ~2023-11-21 | XR_ITS ---
EXAMINATION: XR PELVIS CLINICAL INFORMATION: Post hip replacement COMPARISON: Previous x-ray November 15, 2023 TECHNIQUE: AP view of the pelvis. FINDINGS: There is a new left hip replacement in satisfactory position. No fracture or dislocation. Postoperative air in the soft tissues adjacent to the left hip. Mild arthritis at the right hip. Bones of the visualized pelvis are unremarkable. XR/XR pelvis 1-2V IMPRESSION: Satisfactory appearance of left hip replacement.
[2023-11-21] MEDS: Aprepitant 32 MG/4.4 ML VIAL IVPUSH (06:35)
[2023-11-21] MEDS: oxyCODONE HCl ER 10 MG TAB.ER.12H PO ×2 (06:40→20:06)
[2023-11-21] MEDS: Lactated Ringers 1,000 ML 100 ML IVCONT ×3 (07:08→22:28)
--- OUTSIDE RECORDS SUMMARY | 2023-11-21 07:11 | XMS_ITS | Continuity of Care Document ---
Author Organization [facility] Address [address] [place] [id number]- Care Team Providers Care Blow Molding Machine Tender Name Role Phone Ousmane Umanzor MD Primary Care Physician Encounter [facility] Date(s): 11/01/20 - 12/01/[address] [address] Attending Physician: Kenzie Melendez Admitting Physician: Kenzie Melendez Referring Physician: Kenzie Melendez
--- OUTSIDE RECORDS SUMMARY | 2023-11-21 07:11 | XMS_ITS | Continuity of Care Document ---
Author Organization [facility] Address [address] [place] [address]- Care Team Providers Care Cross Tie Maker Name Role Phone Ousmane Umanzor MD Primary Care Physician Encounter [facility] Date(s): 06/08/22 - 07/08/22 [facility] [address] [place] [id number]- Attending Physician: Admtr, Ar8 Admitting Physician: Admtr, Ar8 Referring Physician: Admtr, Ar8 Patient Care team information Care Team Personnel Name: Ousmane Umanzor MD Position: [facility] Outreach Member Role: PCP Address: Address: [address] [place] [address] Ousmane GruberyoGIA[place] [address]- Care Team Related Persons Name: MARANDA JACOB
--- OUTSIDE RECORDS SUMMARY | 2023-11-21 07:11 | XMS_ITS | Continuity of Care Document ---
Author Organization [facility] Address [address] [place] [id number]- Care Team Providers Care Construction Safety Consultant Name Role Phone Ousmane Umanzor MD Primary Care Physician [id number] Date(s): 07/13/22 - 08/12/[address] [address]- Attending Physician: Admtr, Ar8 Admitting Physician: Admtr, Ar8 Referring Physician: Admtr, Ar8 Patient Care team information Care Team Personnel Name: Ousmane Umanzor MD Position: [facility] Outreach Member Role: PCP Address: Address: [address] [place] [address] [place] [id number]- Care Team Related Persons Name: MARANDA JACOB
--- NOTE | 2023-11-21 07:17 | MHC.SHP ---
Pre-Procedural Eval Section A - 24 Hr Update-Section A only Date of Service: 11/21/23 The patient is an INPATIENT: No Changes since office visit: No Cold of Flu in the past 2 weeks, No New Medical Problems, No Changes in Medication and No Patient answered all questions The patient has been examined within 24 hours of the surgical procedure. The History & Physical has been completed within 30 days and I have reviewed it.: Yes Section B - Complete if H&P > 30 days Chief Complaint: LT MICAH Allergies: Allergies Allergy/AdvReac Type Severity Reaction Status Date / Time buspirone [From BUSPAR] Allergy Intermediate TREMORS,PANIC Verified 11/15/23 11:31 ATTACK prednisone [PREDNISONE] Allergy Intermediate BLEEDING, Verified 11/15/23 11:31 agitation bupropion [From WELLBUTRIN] AdvReac Severe AUDITORY Verified 11/15/23 11:31 HALLUCINATIONS aripiprazole [From ABILIFY] AdvReac Intermediate DOUBLE Verified 11/15/23 11:31 VISION,PANIC ATTACK ketorolac [From Toradol] AdvReac Intermediate dry heaving Verified 11/15/23 11:31 paroxetine [From PAXIL] AdvReac Intermediate PANIC Verified 11/15/23 11:31 ATTACKS procaine [From NOVOCAIN] AdvReac Mild fregoso when Verified 11/15/23 11:31 wears off CHLORINE AdvReac Intermediate hayfever Uncoded 02/09/23 11:18 type reaction drug sensitivity AdvReac Intermediate side Uncoded 02/09/23 11:18 effects from many meds Plan I have reviewed the history and physical and performed a pertinent physical examination on my patient. No changes have occurred unless specified. Time Spent With Patient Time: Total time managing care of this patient today ____ minutes.
--- NOTE | 2023-11-21 08:00 | PHA.MEDREC ---
Pharmacy Consult ? Medication Reconciliation Pharmacy has reviewed the medication reconciliation completed by nursing through claims hx.
--- NOTE | 2023-11-21 09:50 | P.BOP_ITS ---
Brief Operative Note Date of Service: 11/21/23 Pre-op diagnosis: Left hip OA Post-op diagnosis: same Procedure: Left MICAH Implants: [place] Trident2 52 [place] Accolade 2 #4 132 with +2.5 36 ceramic Surgeon: Km Mckeon MD Anesthesia: GETA and local Was an Technical Photographer used for this Procedure?: Yes Technical Photographer: Shannon Larsen Estimated blood loss (mL): 250 IV fluids (mL): 1,200 Pathology: other Condition: stable Disposition: PACU
[2023-11-21] MEDS: Albuterol Sulfate (0.083%) 2.5 MG/3 ML VIAL.NEB INHALE (10:00)
[2023-11-21] MEDS: HYDROmorphone HCl 0.5 MG/0.5 ML SYRINGE 0.25 MG IVPUSH ×2 (10:05→16:08)
--- NOTE | 2023-11-21 10:48 | HO.PM.IMCN ---
History of Present Illness Data of Consult Service Date: 11/21/23 Requesting physician: Km Mckeon Primary Care Provider: Ousmane Umanzor MD HPI Reason for consult: medical management 73-year-old female with history of COPD not on any inhalers, hyperlipidemia, and mood disorder with remote history of alcohol dependence in remission (last drink 30 years ago) admitted to Orthopedic surgery for management of osteoarthritis of the left hip s/p left MICAH with consult placed to hospitalist service for routine medical management. She is a bit sleepy, but is awake and answering questions appropriately and is oriented x3. She reports pain in the left hip, otherwise no complaints. Review of Systems Review of Systems: General: No fevers, malaise, unintentional weight loss HEENT: No blurred vision, diplopia. No sore throat, nasal congestion, rhinorrhea, sinus pain, ear pain Cardiovascular: No chest pain, palpitations, or leg edema Respiratory: No shortness of breath, wheezing, cough GI: No abdominal pain, nausea, vomiting, diarrhea, constipation, melena, hematochezia : No dysuria, hematuria, increased urinary frequency, decreased urinary output MSK: No myalgia, back pain. 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 If so, by whom?: No Are you DNR?: No Advance Directives: No Advance Directives on File: No Recently lost weight without trying: No Eating poorly because of decreased appetite: No Nutrition Risks: No Nutritional Risk Poor oral hygiene: No (4 implants) Meds Allergies Allergy/AdvReac Type Severity Reaction Status Date / Time buspirone [From BUSPAR] Allergy Intermediate TREMORS,PANIC Verified 11/15/23 11:31 ATTACK prednisone [PREDNISONE] Allergy Intermediate BLEEDING, Verified 11/15/23 11:31 agitation bupropion [From WELLBUTRIN] AdvReac Severe AUDITORY Verified 11/15/23 11:31 HALLUCINATIONS aripiprazole [From ABILIFY] AdvReac Intermediate DOUBLE Verified 11/15/23 11:31 VISION,PANIC ATTACK ketorolac [From Toradol] AdvReac Intermediate dry heaving Verified 11/15/23 11:31 paroxetine [From PAXIL] AdvReac Intermediate PANIC Verified 11/15/23 11:31 ATTACKS procaine [From NOVOCAIN] AdvReac Mild fregoso when Verified 11/15/23 11:31 wears off CHLORINE AdvReac Intermediate hayfever Uncoded 02/09/23 11:18 type reaction drug sensitivity AdvReac Intermediate side Uncoded 02/09/23 11:18 effects from many meds Active Medications: Current Medications Acetaminophen (Acetaminophen 325 Mg Tablet) 650 mg PO Q6H PRN PRN Reason: Pain, Mild (Pain Scale 1-3) Ascorbic Acid (Ascorbic Acid 500 Mg Tablet) 500 mg PO BEDTIME [facility] Aspirin (Aspirin 325 Mg Tablet) 325 mg PO BID [facility] Celecoxib (Celecoxib 200 Mg Capsule) 200 mg PO BID [facility] Docusate Sodium (Docusate Sodium 100 Mg Capsule) 100 mg PO BID [facility] Escitalopram Oxalate (Escitalopram Oxalate 5 Mg Tablet) 5 mg PO DAILY [facility] Hydromorphone HCl (Hydromorphone Hcl 0.5 Mg/0.5 Ml Syringe) 0.25 mg IVPUSH Q4H PRN; Protocol PRN Reason: Pain, Severe (Pain Scale 7-10) Lactated Ringer's (Lr) 1,000 mls @ 100 mls/hr IVCONT .Q10H [facility] Last Admin: 11/21/23 07:08 Dose: 100 mls/hr Lactated Ringer's (Lr) 1,000 mls @ 100 mls/hr IVCONT .Q10H [facility] Cefazolin Sodium/Dextrose (Ancef) 2 gm in 50 mls @ 100 mls/hr IV POSTOP ONE Stop: 11/21/23 14:09 Latanoprost (Latanoprost 0.005 % Ophth Juani 2.5 Ml Drops) 1 drop EYE-BOTH BEDTIME [facility] Multivitamins/Vitamin C (Multivitamin Tablet) 1 tab PO DAILY [facility] Non-Formulary Medication (Simvastatin) 40 mg PO BEDTIME [facility] Ondansetron HCl (Ondansetron Hcl 4 Mg/2 Ml Vial) 4 mg IVPUSH Q8H PRN PRN Reason: Nausea and Vomiting Oxycodone HCl (Oxycodone Hcl Immed Release 5 Mg Tablet) 5 mg PO Q4H PRN PRN Reason: Pain, Moderate(Pain Scale 4-6) Oxycodone HCl (Oxycodone Hcl Er 10 Mg Tab.Er.12h) 10 mg PO BID [facility] Sodium Chloride (0.9 % Sodium Chloride Flush 3 Ml Syringe) 3 ml IVFLUSH QSHIFT [facility] Vitamin D (Cholecalciferol (Vitamin D3) 25 Mcg Tablet) 50 mcg PO DAILY [facility] Home Medications ?Medication ?Instructions ?Recorded ?Confirmed ?Last Taken ?Type latanoprost 0.005 % eye drops 1 drp ophthalmic (eye) BEDTIME 04/07/21 08/28/23 11/20/23 History simvastatin 40 mg tablet 40 mg PO BEDTIME 04/07/21 08/28/23 11/20/23 History ascorbic acid (vitamin C) 500 mg 500 mg PO BEDTIME 08/28/23 08/28/23 11/20/23 History capsule,extended release (Vitamin C) cholecalciferol (vitamin D3) 50 50 mcg PO QAM 08/28/23 08/28/23 11/20/23 History mcg (2,000 unit) capsule (Vitamin D3) citalopram 10 mg tablet 10 mg PO QAM 08/28/23 08/28/23 11/20/23 History lactobacillus comb no.10 20 20,000 mmu cells PO QAM 08/28/23 08/28/23 11/20/23 History billion cell capsule (Probiotic) multivitamin 1 tab PO QAM 01/08/28/23 11/20/23 History Physical Exam Vital Signs and Narrative: Vital Signs: Last Vital Signs Temp 97.5 F 11/21/23 10:30 Pulse 76 11/21/23 10:30 Resp 16 11/21/23 10:30 BP 126/64 11/21/23 10:30 Pulse Ox 96 11/21/23 10:30 O2 Del Method Nasal Cannula 11/21/23 10:30 O2 Flow Rate 2 11/21/23 10:30 BMI result Body Mass Index 26.6 Constitutional - Awake and Alert, No apparent distress Eyes - PERRLA, EOMI Cardiovascular - S1S2, RRR, No edema Respiratory - Normal lung expansion, Normal respiratory effort, No respiratory distress, CTA bilaterally Gastrointestinal - NT / ND; +BS; No rebound or guarding Extremities - no calf tenderness bilaterally, no swelling Skin - Warm/Dry Neurological - Alert & oriented x3 Psychological - Appropriate affect Results Labs Labs: Laboratory Results - last 24 hr 11/21/23 07:20 Blood Type O Negative Antibody Screen NEGATIVE Assessment and Plan (1) Osteoarthritis of left hip: Qualifiers: Osteoarthritis type: unspecified Qualified Code(s): M16.12 - Unilateral primary osteoarthritis, left hip Status: Acute Plan 73-year-old female with history of COPD not on any inhalers, hyperlipidemia, and mood disorder with remote history of alcohol dependence in remission (last drink 30 years ago) admitted to Orthopedic surgery for management of osteoarthritis of the left hip s/p left MICAH with consult placed to hospitalist service for routine medical management. #OA Left Hip s/p MICAH POD0 -plan per ortho surgery #COPD -no exacerbation, wean from supplemental O2 as tolerated -not on inhalers. Albuterol if needed prn #HLD -continue statin #Mood disorder -continue home meds Thank you for allowing me to participate in this consult. Signing off at this time. Please do not hesitate to call for further questions.
[2023-11-21] MEDS: oxyCODONE HCl Immed Release 5 MG TABLET PO ×2 (11:03→20:05)
[2023-11-21] MEDS: Cholecalciferol (Vitamin D3) 25 MCG TABLET 50 MCG PO (11:04)
[2023-11-21] MEDS: Multivitamin TABLET 1 TAB PO (11:04)
[2023-11-21] MEDS: ceFAZolin Sodium/Dextrose,Iso 2 GM/50 ML PIGGYBACK IV (13:56)
[2023-11-21] MEDS: Docusate Sodium 100 MG CAPSULE PO (20:05)
[2023-11-21] MEDS: Latanoprost 0.005 % Ophth Sol 2.5 ML DROPS 1 DROP EYE-BOTH (20:05)
[2023-11-21] MEDS: Atorvastatin Calcium 20 MG TABLET PO (20:06)
[2023-11-21] MEDS: Ascorbic Acid 500 MG TABLET PO (20:06)
[2023-11-21] MEDS: Celecoxib 200 MG CAPSULE PO (20:06)
[2023-11-22 03:34] VITALS: BP 109/58; PULSE 79; RESP 16; TEMP 36; O2SAT 94
[2023-11-22 05:37] LABS: Basophils Percent Auto 0.2 % (0-2); Eosinophils Percent Auto 0.1 % (0-4); Hematocrit 31.8 % (37.0-47.0); Hemoglobin 10.7 g/dl (12.0-16.0); Imm Gran Abs Auto 0.06 X10*3/uL (0.00-0.03); Imm Gran Pct Auto 0.4 % (0.0-0.4); Lymphocytes Absolute Auto 1.9 X10*3/uL (1.2-4.9); Lymphocytes Percent Auto 14.2 % (20-40); MANUAL DIFF FLAG SCAN; Mean Corpuscular HGB Conc 33.6 g/dl (31.0-35.0); Mean Corpuscular Hemoglobin 31.7 pg (27.0-33.0); Mean Corpuscular Volume 94.1 fL (80.0-98.0); Mean Platelet Volume 8.5 fL (9.4-12.3); Monocytes Absolute Auto 1.7 X10*3/uL (0.1-1.2); Monocytes Percent Auto 12.5 % (2-11); Neutrophils Absolute Auto 9.7 x10*3/uL (2.0-8.3); Neutrophils Percent Auto 72.6 % (45-73); Platelet Count 304 X10*3/uL (160-400); Red Blood Count 3.38 X10*6/uL (4.20-5.50); Red Cell Distribution Width 13.2 % (11.0-16.0); SCAN SMEAR FLAG 1; White Blood Count 13.4 X10*3/uL (4.8-10.8)
[2023-11-22 05:51] LABS: Anion Gap 10 (12-20); Blood Urea Nitrogen 11 mg/dL (9-16); Calcium 8.6 mg/dL (8.4-10.2); Carbon Dioxide 25 mmol/L (22-29); Chloride 108 mmol/L (96-108); Creatinine Clr Calc Pharmacy 66.5; Estimated Glomerular Filt Rate > 60; Glucose Fasting 116 mg/dL (60-99); Potassium 4.4 mmol/L (3.3-5.1); Sodium 139 mmol/L (135-145)
[2023-11-22 06:08] LABS: SLIDE REVIEW VERIFIED
--- NOTE | 2023-11-22 07:31 | HO.POSTANES ---
Post Anesthesia Evaluation Post Anesthesia Evaluation Date of Service: 11/22/23 Vital Signs: Vital Signs Temp Pulse Resp BP Pulse Ox O2 Del Method 11/22/23 03:34 96.8 F 79 16 109/58 L 94 Room Air 11/21/23 23:39 98.1 F 81 16 121/58 L 94 Room Air Anesthesia: General Endotracheal-GETA Mental Status: Awake Pain Control: Satisfactory Nausea/Vomiting: None Hydration: Adequate Anesthesia-Related Issues: No Anes. Related Issues
[2023-11-22 08:00] VITALS: BP 106/52; PULSE 72; RESP 18; TEMP 36.7; O2SAT 94
[2023-11-22] MEDS: oxyCODONE HCl ER 10 MG TAB.ER.12H PO ×2 (08:00→19:47)
[2023-11-22] MEDS: Aspirin 325 MG TABLET PO ×2 (08:01→19:46)
[2023-11-22] MEDS: Docusate Sodium 100 MG CAPSULE PO ×2 (08:01→19:47)
[2023-11-22] MEDS: Cholecalciferol (Vitamin D3) 25 MCG TABLET 50 MCG PO (08:01)
[2023-11-22] MEDS: Multivitamin TABLET 1 TAB PO (08:02)
[2023-11-22] MEDS: Celecoxib 200 MG CAPSULE PO ×2 (08:02→19:46)
[2023-11-22] MEDS: HYDROmorphone HCl 0.5 MG/0.5 ML SYRINGE 0.25 MG IVPUSH (08:17)
[2023-11-22] MEDS: Lactated Ringers 1,000 ML 100 ML IVCONT ×2 (08:21→17:35)
--- NOTE | 2023-11-22 09:44 | MHC.CM.PN ---
Addendum entered by Shanon Morris RN 11/22/23 14:51: Per [facility] patient has been paired w/ [facility] 5x/wk. Original Note: [facility] delivered. Patient is from home alone. Daughter lives next door. Ambulates w/ a cane. Also has a walker and a toilet riser. Independent w/ ADL's. PCP Ousmane Umanzor MD No HCP. CM provided education and offered assistance. Patient declines, will discuss with family and then complete independently. DP: PT rec home with services. Patient prefers [facility] who has accepted. Also requesting meals on wheels, referral to [facility]. Family will provide transport home. CM will continue to follow for dc needs.
[2023-11-22 12:00] VITALS: BP 126/60; PULSE 78; RESP 16; TEMP 36.2; O2SAT 96
[2023-11-22 15:18] VITALS: BP 135/62; PULSE 70; RESP 16; TEMP 36.6; O2SAT 95
[2023-11-22] MEDS: oxyCODONE HCl Immed Release 5 MG TABLET PO ×2 (17:18→21:00)
[2023-11-22 19:16] VITALS: BP 151/68; PULSE 86; RESP 16; TEMP 37.2; O2SAT 95
[2023-11-22] MEDS: Ascorbic Acid 500 MG TABLET PO (19:46)
[2023-11-22] MEDS: Atorvastatin Calcium 20 MG TABLET PO (19:47)
[2023-11-22] MEDS: Latanoprost 0.005 % Ophth Sol 2.5 ML DROPS 1 DROP EYE-BOTH (21:00)
[2023-11-22 23:39] VITALS: BP 121/57; PULSE 81; RESP 16; TEMP 37; O2SAT 95
[2023-11-23] MEDS: Lactated Ringers 1,000 ML 100 ML IVCONT (02:32)
[2023-11-23] MEDS: oxyCODONE HCl Immed Release 5 MG TABLET PO ×2 (02:33→12:14)
[2023-11-23 04:00] VITALS: BP 134/61; PULSE 84; RESP 18; TEMP 36.3; O2SAT 96
[2023-11-23] MEDS: ondansetron HCL 4 MG/2 ML VIAL IVPUSH (05:39)
[2023-11-23 06:06] LABS: Anion Gap 11 (12-20); Blood Urea Nitrogen 12 mg/dL (9-16); Calcium 8.9 mg/dL (8.4-10.2); Carbon Dioxide 26 mmol/L (22-29); Chloride 110 mmol/L (96-108); Creatinine Clr Calc Pharmacy 69.3; Estimated Glomerular Filt Rate > 60; Glucose Fasting 110 mg/dL (60-99); Sodium 143 mmol/L (135-145)
[2023-11-23 07:41] VITALS: BP 120/60; PULSE 80; RESP 16; TEMP 36.8; O2SAT 91
[2023-11-23] MEDS: oxyCODONE HCl ER 10 MG TAB.ER.12H PO (07:52)
[2023-11-23] MEDS: Aspirin 325 MG TABLET PO (07:52)
[2023-11-23] MEDS: Docusate Sodium 100 MG CAPSULE PO (07:53)
[2023-11-23] MEDS: Multivitamin TABLET 1 TAB PO (07:53)
[2023-11-23] MEDS: Cholecalciferol (Vitamin D3) 25 MCG TABLET 50 MCG PO (07:53)
[2023-11-23 08:37] VITALS: BP 120/60; PULSE 80; O2SAT 91
[2023-11-23 09:30] LABS: MANUAL DIFF FLAG NO
[2023-11-23 09:32] LABS: Basophils Percent Auto 0.3 % (0-2); Eosinophils Absolute Auto 0.2 X10*3/uL (0.0-0.4); Eosinophils Percent Auto 1.2 % (0-4); Hematocrit 32.3 % (37.0-47.0); Hemoglobin 10.8 g/dl (12.0-16.0); Imm Gran Abs Auto 0.05 X10*3/uL (0.00-0.03); Imm Gran Pct Auto 0.4 % (0.0-0.4); Lymphocytes Absolute Auto 2.2 X10*3/uL (1.2-4.9); Lymphocytes Percent Auto 16.8 % (20-40); Mean Corpuscular HGB Conc 33.4 g/dl (31.0-35.0); Mean Corpuscular Hemoglobin 31.5 pg (27.0-33.0); Mean Corpuscular Volume 94.2 fL (80.0-98.0); Mean Platelet Volume 8.8 fL (9.4-12.3); Monocytes Absolute Auto 1.2 X10*3/uL (0.1-1.2); Monocytes Percent Auto 9.6 % (2-11); Neutrophils Absolute Auto 9.2 x10*3/uL (2.0-8.3); Neutrophils Percent Auto 71.7 % (45-73); Platelet Count 304 X10*3/uL (160-400); Red Blood Count 3.43 X10*6/uL (4.20-5.50); Red Cell Distribution Width 13.2 % (11.0-16.0); White Blood Count 12.8 X10*3/uL (4.8-10.8)
--- NOTE | 2023-11-23 10:26 | PM.DS ---
DS: Providers Provider Date of Service: 11/23/23 Date of admission: 11/21/23 06:52 Primary care physician: Ousmane Umanzor MD Consults: 11/21/23 10:38 Consult to Hospitalist Routine Comment: Consulting Provider: Hospitalist Reason For Exam: routine medical management DS: Diagnosis Discharge Diagnosis (1) Osteoarthritis of left hip: Status: Acute DS: Summary Hospital Course Hospital Course: The patient underwent a successful left total hip arthroplasty on 11/21/[address] Barraza , was transferred to PACU and then to the floor to recover. During their stay, their vitals were stable, afebrile at 98.2. Labs were unremarkable, H/H 10.8/32.3. POD 1 he was started on ASA twice a day for DVT ppx, they also received Physical Therapy services twice a day. Physical therapy should include gait training, core and lumbar strength, glute strength. Posterior precautions intact. WBAT. Prior to discharge, her dressing was changed, incision clean dry and intact, new Aquacel dressing applied. The Aquacel dressing should remain intact and dry at all times. Any concerns with the dressing, please contact orthopedic office. No showering. The plan is to be discharged home with [facility]. Time Attestation Discharge Coordination Time (in mins): 30 Quality: Safe Use of Opioids Does Pt have an Active Cancer Diagnosis on the Problem List?: No Quality: Stroke Does the patient have a stroke diagnosis?: No Physical Exam Vital Signs: Vital Signs: Last Vital Signs Temp 98.2 F 11/23/23 07:41 Pulse 80 11/23/23 08:37 Resp 16 11/23/23 07:41 BP 120/60 11/23/23 08:37 Pulse Ox 91 L 11/23/23 08:37 O2 Del Method Room Air 11/23/23 07:41 O2 Flow Rate 2 11/21/23 10:30 BMI result Body Mass Index 26.6 DS: Data Data Completed and Pending Pending studies at discharge: Pending at discharge 11/21/23 09:02 Surgical [PTH] Routine Labs on day of discharge: Laboratory Results - last 24 hr 11/23/23 11/23/23 05:39 09:07 WBC 12.8 H RBC 3.43 L Hgb 10.8 L Hct 32.3 L MCV 94.2 MCH 31.5 MCHC 33.4 RDW 13.2 Plt Count 304 MPV 8.8 L Immature Gran % (Auto) 0.4 Neut % (Auto) 71.7 Lymph % (Auto) 16.8 L [place] % (Auto) 9.6 Eos % (Auto) 1.2 Baso % (Auto) 0.3 Lymph # (Auto) 2.2 [place] # (Auto) 1.2 Eos # (Auto) 0.2 Baso # (Auto) 0.0 Abs Immat Gran (auto) 0.05 H Absolute Neuts (auto) 9.2 H Absolute Nucleated RBC 0.000 Nucleated RBC % (auto) 0.0 Sodium 143 Potassium 4.0 Chloride 110 H Carbon Dioxide 26 Anion Gap 11 L BUN 12 Creatinine 0.71 Estim Creat Clear Calc 69.3 Estimated GFR > 60 Fasting Glucose 110 H Calcium 8.9 Discharge Plan Discharge Anticipated Discharge Date/Time: 11/23/23 10:24 Patient Disposition: Home Health Service Discharge Diagnosis: LT MICAH Referrals: [facility] [Outside] - 1 Day ([facility] will contact you to schedule home physical therapy appointments) Iván Triplett PA-C [Physician Storage Battery Inspector] - 1 Week (10/07/23 14:15 [facility] [place] [facility] Shannon Larsen PA-C) Discharge Medications: No Action latanoprost 0.005 % drops 1 drp ophthalmic (eye) BEDTIME simvastatin 40 mg tablet 40 mg PO BEDTIME citalopram 10 mg tablet 10 mg PO QAM multivitamin Tablet 1 tab PO QAM cholecalciferol (vitamin D3) [Vitamin D3] 50 mcg (2,000 unit) Capsule 50 mcg PO QAM Probiotic 20 billion cell Capsule 20,000 mmu cells PO QAM Rx Instructions: administer with a meal ascorbic acid (vitamin C) [Vitamin C] 500 mg Capsule, Extended Release 500 mg PO BEDTIME Discharge Orders: Discharge Order (Routine); Ordered 11/23/23 Ordered By: Iván Triplett Diet: Regular diet Activity on Discharge: Use cane or walker Stand Alone Forms: Patient Portal Discharge page Print Language: Greek Care Plan Goals: Restore function of joint Health Concerns: none Plan of Treatment: Physical Therapy Pain management DVT prophylaxis Assessment: Physical Therapy for Total hip arthroplasty: wbat, posterior precautions, gait training, ROM, strength Limit stair climbing No showering, no tub bath-keep dressing clean, dry and intact No driving x6 weeks Continue Aspirin twice a day x 6 weeks Follow up with [facility] [place] Orthopedics in 2 weeks
--- NOTE | 2023-11-23 10:29 | P.F2F_ITS ---
Service Date Service Date: 11/23/23 Encounter Date of encounter: 11/23/23 Reasons for Services Signs and symptoms assessed: Weakness, poor balance, poor gait mechanics Reason for physical therapy: home safety and mobility, therapeutic exercises, restore joint function and ADL training Reason for occupational therapy: home safety and mobility, therapeutic exercises, restore joint function, gait/transfer training and ADL training Homebound: Leaving the home is medically contraindicated at this time without the asist of a device and/or another person due th the listed conditions above and below. Reason homebound: unsteady gait / fall risk, pain with ambulation, poor balance / fall risk and unable to drive Certification: Based on the above findings, I certify that this patient is confined to the home and needs intermittent residential care, physical therapy and/or speech therapy, or continues to need occupational therapy. The patient is under my care, and I have initiated the establishment of the plan of care. The patient will be followed by a physician who will periodically review the plan of care. Time Spent With Patient Time: Total time managing care of this patient today ____ minutes.
--- NOTE | 2023-11-23 10:40 | MHC.CM.PN ---
EMR reviewed. Patient medically cleared for dc home w/ [facility] and [facility] for [facility]. Family to transport home.
[2023-11-23 12:00] VITALS: BP 125/59; PULSE 86; RESP 18; TEMP 36.9; O2SAT 94
--- NOTE | 2023-11-24 11:57 | P.OP_ITS ---
Operative Note Operative Note Date of Service: 11/21/23 Narrative: Date of Service: 11/21/23 Pre-op diagnosis: Left hip OA Post-op diagnosis: same Procedure: Left MICAH Implants: [place] Trident2 52 Nelida Accolade 2 #4 132 with +2.5 36 ceramic Surgeon: Km Mckeon MD Anesthesia: GETA and local Was an Integrity Manager used for this Procedure?: Yes Integrity Manager: Shannon Larsen Estimated blood loss (mL): 250 IV fluids (mL): 1,200 Pathology: other Condition: stable Disposition: PACU Procedure in detail: Patient was brought into the operating room and placed in the right lateral decubitus position. All bony prominences were well padded and the limb was prepped and draped in standard sterile fashion. A time-out was called to identify proper site procedure proper surgeon IV antibiotics and 1 g of transaxemic acid were administered. I began by making a curvilinear incision over the posterolateral aspect of the greater trochanter. Dissection was taken down to the tensor fascia which was incised in line with the incision and a Charnley retractor was placed. Cautery was used to maintain hemostasis. The hip was internally rotated and the external rotators were identified. The vessels were cauterized and a full-thickness capsular/external rotator layer was developed starting just proximal to the piriformis. This layer was tagged and a dull Hohmann retractor was placed underneath the neck in the hip was dislocated. A neck cut was made 1 cm proximal to the lesser trochanter and the head and neck were removed and measured 48mm on the back table. I then removed the labrum and cauterized the fovea. I started with a 44 reamer and medialized to the inner table. I sequentially reamed up to a size 52 and impacted a 52mm cup at 45 degrees of inclination and 25 degrees of version. I then placed a 20 deg posterior lipped liner and turned my attention to the femur. I identified the piriformis insertion and used this as a starting point for my nelida cutter. The medius tendon was protected with a Hibs retractor. A Charnley awl was inserted in the canal and a curved curette used to remove the lateral bone. I irrigated copiously. I then sequentially broached in the patient's natural version to a size 5 and placed my trial implants. I used a #4/132/+2.5 based on my pre-operative template. Using a trail head I took the hip through range of motion. I was satisfied with the stability. I removed all instrumentation and copiously irrigated. I placed my final femoral implant and again took the hip through range of motion and was satisfied with the stability and length. The final 2.5 implant was impacted in place and the hip reduced. I then irrigated fcopiously placed 1 g of local transaxemic acid. I performed a capsular closure with 2.0 fiberwire, Parveen's fascia with 0 Vicryl, subcuticular with 2-0 Vicryl and the skin with meghan. Patient was placed into a sterile dressing. Patient was extubated brought to the recovery room in stable condition. There were no known complications.
== END 2023-11-23 14:14 | disposition home health service (06) | DRG 470 ==
LOC: HO.SSSA 07:09 → HO.S3 09:37
PROVIDERS: Nurse Practitioner; Physician Assistant; Admitting Provider Orthopaedic Surgery; PCP Internal Medicine; Visit Provider Orthopaedic Surgery
PROC: 0SRB03A Replacement of Left Hip Joint with Ceramic Synthetic Substitute, Uncemented, Open Approach (ICD-10-PCS; CPT 27130; principal; 2023-11-21 07:30)
DX: M16.12 Unilateral primary osteoarthritis, left hip (principal); F10.21 Alcohol dependence, in remission; F17.210 Nicotine dependence, cigarettes, uncomplicated; Z71.6 Tobacco abuse counseling; J44.9 Chronic obstructive pulmonary disease, unspecified; E78.5 Hyperlipidemia, unspecified; F39 Unspecified mood [affective] disorder; Z79.899 Other long term (current) drug therapy
CPT/HCPCS: 36415; 72170; 80048; 85025; 86850; 86900; 86901; 87640; 87641; 88304; 88311; 93005; 94640; 97110; 97116; 97162; 97166; 97535; C1713; C1776; C9145; J0131; J0690; J1100; J1170; J1596; J2371; J2405; J2704; J2795; J3010; J7120

== ENCOUNTER → 2023-11-21 06:52 | Outpatient (BNV) | payer MEDICARE, SELFPAY | PROVIDERS: Admitting Provider Orthopaedic Surgery; PCP Internal Medicine; Visit Provider Orthopaedic Surgery | DX: Z47.1 Aftercare following joint replacement surgery (principal); Z96.642 Presence of left artificial hip joint | CPT/HCPCS: 27130; 99024; 99212; G0180 ==

== ENCOUNTER → 2023-11-21 06:52 | Outpatient (BNV) | payer MEDICARE, SELFPAY | PROVIDERS: Admitting Provider Orthopaedic Surgery; PCP Internal Medicine; Visit Provider Physician Assistant | DX: J44.9 Chronic obstructive pulmonary disease, unspecified (principal); M16.12 Unilateral primary osteoarthritis, left hip | CPT/HCPCS: 99222 ==

== ENCOUNTER 2023-12-06 09:14 | Outpatient (REF) | payer MEDICARE, SELFPAY ==
--- NOTE | ~2023-12-06 | XR_ITS ---
EXAMINATION: XR PELVIS CLINICAL INFORMATION: Pain in unspecified hip. COMPARISON: 11/21/2023. TECHNIQUE: 2 AP views of the pelvis. FINDINGS: Redemonstration of the left hip total arthroplasty in satisfactory position. Hardware appears intact. Mild degenerative changes right hip. Degenerative changes in the imaged lower lumbar spine. Pubic symphysis is maintained. Bilateral sacroiliac joints are symmetric. XR/XR pelvis 1-2V IMPRESSION: 1. Left hip total arthroplasty in satisfactory position. Hardware appears intact. 2. Mild degenerative changes in the right hip.
== END 2023-12-06 09:15 | disposition home or self-care (01) ==
LOC: HO.HOSX 09:14
PROVIDERS: Visit Provider Physician Assistant
DX: Z96.642 Presence of left artificial hip joint (principal)
CPT/HCPCS: 72170; 99212

== ENCOUNTER 2023-12-06 10:04 | Outpatient (AMB) | payer MEDICARE, SELFPAY ==
--- NOTE | 2023-12-06 10:15 | A.OFFVIS_ITS ---
Intake Visit Reasons: PO LT MICAH 11/21/23 NE Intake Note: Gayathri is a 73 year old female who presents today for a post op appointment s/p LT MICAH 11/21/23 NE. Patient reports she is doing a lot better. She expresses that her left hip is doing well. Allergies buspirone [From BUSPAR] Allergy (Intermediate, Verified 12/06/23 10:16) TREMORS,PANIC ATTACK prednisone [PREDNISONE] Allergy (Intermediate, Verified 12/06/23 10:16) BLEEDING, agitation bupropion [From WELLBUTRIN] Adverse Reaction (Severe, Verified 12/06/23 10:16) AUDITORY HALLUCINATIONS aripiprazole [From ABILIFY] Adverse Reaction (Intermediate, Verified 12/06/23 10:16) DOUBLE VISION,PANIC ATTACK ketorolac [From Toradol] Adverse Reaction (Intermediate, Verified 12/06/23 10:16) dry heaving paroxetine [From PAXIL] Adverse Reaction (Intermediate, Verified 12/06/23 10:16) PANIC ATTACKS procaine [From NOVOCAIN] Adverse Reaction (Mild, Verified 12/06/23 10:16) fregoso when wears off CHLORINE Adverse Reaction (Intermediate, Uncoded 02/09/23 11:18) hayfever type reaction drug sensitivity Adverse Reaction (Intermediate, Uncoded 02/09/23 11:18) side effects from many meds HPI HPI PO LT MICAH 11/21/23 NE: Details: 73-year-old female who presents in the office today 15 days status post left total hip arthroplasty, which was performed on 11/21/[address] Mckeon. While in the office the patient reports her left hip is doing well. [facility] Medical History Alcohol dependence in remission Family history of anesthesia complication Anesthesia complication Arthritis Depression RSV (respiratory syncytial virus infection) Hearing loss COPD (chronic obstructive pulmonary disease) Elevated cholesterol Surgical History History of dental anglican History of hip surgery Hx of dilation and curettage H/O colonoscopy Social History Household Members: None Household Members Other:: lives in 3 family and daughter in another apt Housing: House Are you a primary multi care technician to a significant other at home: No Do you presently have visiting nurse or other home services: No Patient Tobacco Use Status: Current everyday Tobacco user Tobacco use type: Cigarette Cigarette Packs Per Day: 1 Cigarettes Per Day: 10 Years Smoked: 40 service: No Review of Systems Const All systems reviewed & are unremarkable except as noted in HPI and below Physical Exam Const General: cooperative, healthy appearing and no acute distress Resp Effort & Inspection: normal respiratory effort and able to speak in complete sentences Cardio Rate: regular rate Peripheral pulses: Peripheral pulses 2+ throughout GI Palpation (GI): Soft to palpation Skin Lesions: no lesions Rashes: no rashes Extrem Other: Left hip: Incision site is clean, dry, and intact. [place] intact. No surrounding erythema or drainage. No signs of infection. Full ROM in all planes. NVI. Assessment & Plan Assessment & Plan (1) S/P total left hip arthroplasty: Onset Date: ~11/21/23 Comment: NE Code(s): Z96.642 - Presence of left artificial hip joint Category: Surgical Plan Ms. Jha is a 73-year-old female who presents in the office today 15 days status post left total hip arthroplasty, which was performed on 11/21/[address] Mckeon. While in the office the patient reports her left hip is doing well. [place] were removed and steri-stripes were applied. A refill for Oxycodone 5 mg was sent to the pharmacy. The patient will begin to wean to every 6 hours. Patient will transition to outpatient PT on 12/13/2023. Follow up will be in [address] Mckeon, or sooner if needed. X-rays of the left hip which were obtained while in the office today and were reviewed by me, Shannon Larsen PA-C, revealed intact orthopedic hardware with proper positioning. Current pain regiment: -Acetaminophen 650 mg PO Q6H PRN -Oxycodone 5 mg PO Q4H PRN Orders: Orders XR pelvis 1-2V Today M25.559 - Pain in unspecified hip Medications: Changed From oxycodone Partial Fill upon patient request. 5 mg PO Q4H 7 days PRN 42 tabs 0RF Pain, Moderate(Pain Scale 4-6) To oxycodone Partial Fill upon patient request. 5 mg PO Q6H PRN 28 tabs 0RF Pain, Moderate(Pain Scale 4-6) 7 days Patient Instructions: Scribed by Arabella Fabian durable medical equipment repairer, for Shannon Larsen PA-C on 12/06/2023 at 10:06 am, EST. Coding Level of Care Code Global (93640) Diagnoses S/P total left hip arthroplasty Z96.642
== END 2023-12-06 10:32 | disposition home or self-care (01) ==
PROVIDERS: PCP Internal Medicine; Visit Provider Physician Assistant
DX: Z96.642 Presence of left artificial hip joint (principal)
CPT/HCPCS: 99024

== ENCOUNTER 2023-12-31 11:46 | Outpatient (REF) | payer MEDICARE, SELFPAY ==
--- NOTE | ~2023-12-31 | XR_ITS ---
EXAMINATION: XR PELVIS CLINICAL INFORMATION: Pain in unspecified hip. COMPARISON: 12/06/2023, 11/21/2023. TECHNIQUE: 2 AP views of the pelvis. FINDINGS: Redemonstration of left total hip arthroplasty. Hardware appears intact. Alignment unchanged. Persistent small ossification or calcification in the soft tissues adjacent to the superior lateral aspect of the left hip joint. Mild degenerative changes in the right hip. Degenerative changes in the imaged lower lumbar spine. Bilateral sacroiliac joints are symmetric. Pubic symphysis is maintained. Bones are diffusely demineralized. XR/XR pelvis 1-2V IMPRESSION: Redemonstration of left total hip arthroplasty. Hardware appears intact. Alignment unchanged.
== END 2023-12-31 11:47 | disposition home or self-care (01) ==
LOC: HO.HOSX 11:46
PROVIDERS: Visit Provider Orthopaedic Surgery
DX: M25.552 Pain in left hip (principal); Z47.1 Aftercare following joint replacement surgery; Z96.642 Presence of left artificial hip joint
CPT/HCPCS: 72170; 99212

== ENCOUNTER 2023-12-31 13:05 | Outpatient (AMB) | payer MEDICARE, SELFPAY ==
--- NOTE | 2023-12-31 13:23 | MHC.OFFVIS ---
Intake Visit Reasons: PO 6 week LT MICAH 11/21/23 NE Intake Note: Gayathri is a 73 year old female who presents today for a post op appointment s/p LT MICAH 11/21/23 NE. Patient reports that she is doing well, she is struggling to sleep through the night due to discomfort. She has brought her Post op protocol list and is wondering how long these restrictions will stay in place Allergies buspirone [From BUSPAR] Allergy (Intermediate, Verified 12/06/23 10:16) TREMORS,PANIC ATTACK prednisone [PREDNISONE] Allergy (Intermediate, Verified 12/06/23 10:16) BLEEDING, agitation bupropion [From WELLBUTRIN] Adverse Reaction (Severe, Verified 12/06/23 10:16) AUDITORY HALLUCINATIONS aripiprazole [From ABILIFY] Adverse Reaction (Intermediate, Verified 12/06/23 10:16) DOUBLE VISION,PANIC ATTACK ketorolac [From Toradol] Adverse Reaction (Intermediate, Verified 12/06/23 10:16) dry heaving paroxetine [From PAXIL] Adverse Reaction (Intermediate, Verified 12/06/23 10:16) PANIC ATTACKS procaine [From NOVOCAIN] Adverse Reaction (Mild, Verified 12/06/23 10:16) fregoso when wears off CHLORINE Adverse Reaction (Intermediate, Uncoded 02/09/23 11:18) hayfever type reaction drug sensitivity Adverse Reaction (Intermediate, Uncoded 02/09/23 11:18) side effects from many meds HPI HPI PO 6 week LT MICAH 11/21/23 NE: Details: 6 weeks s/p MICAH on left. She is walking with a walker still because of fear of falling and some underlying balance issues. [facility] Medical History Alcohol dependence in remission Family history of anesthesia complication Anesthesia complication Arthritis Depression RSV (respiratory syncytial virus infection) Hearing loss COPD (chronic obstructive pulmonary disease) Elevated cholesterol Surgical History History of dental hoahaoism History of hip surgery Hx of dilation and curettage H/O colonoscopy Social History Household Members: None Household Members Other:: lives in 3 family and daughter in another apt Housing: House Are you a primary insurance healthcare consultant to a significant other at home: No Do you presently have visiting nurse or other home services: No Patient Tobacco Use Status: Current everyday Tobacco user Tobacco use type: Cigarette Cigarette Packs Per Day: 1 Cigarettes Per Day: 10 Years Smoked: 40 service: No Physical Exam Extrem Other: No pain iwth hip ROM Inc /d/i No gait antalgia Assessment & Plan Assessment & Plan (1) S/P total left hip arthroplasty: Onset Date: ~11/21/23 Comment: NE Code(s): Z96.642 - Presence of left artificial hip joint Category: Surgical Plan: Doing well s/p MICAH. May resume nl activity and transition to cane. PT and follow up in 6 weeks Orders: Orders XR pelvis 1-2V 12/31/23 M25.559 - Pain in unspecified hip Coding Level of Care Code Global (60287) Diagnoses S/P total left hip arthroplasty Z96.642
== END 2023-12-31 13:26 | disposition home or self-care (01) ==
PROVIDERS: PCP Internal Medicine; Visit Provider Orthopaedic Surgery
DX: Z96.642 Presence of left artificial hip joint (principal)
CPT/HCPCS: 99024

== ENCOUNTER 2024-02-06 13:00 | Outpatient (RCR) | payer MEDICARE, SELFPAY ==
--- NOTE | 2023-12-17 11:39 | MHC.PT.EP ---
[facility] [place] [facility] [place] Office [address] Amanda Bernal [address] [phone] F: [phone] F: [phone] F: [phone] F: [phone] Physical Therapy Plan of Care Date of Evaluation: 12/13/23 Date of Surgery: 11/21/23 Diagnosis: L MICAH Assessment: Pt is a 73yo female who presents 4 weeks s/p L MICAH. Skilled PT indicated to help her safely rehabilitate with goal to return to normal gait pattern without AD and reduce risk for falls. Pt is in agreement with POC and is motivated to participate. Frequency and Duration: The patient will be seen 2x/week, x 6 weeks Short Term Goals: 1. In 1 week, patient will be I with phase 1 hip strengthening exercises with good ability to follow hip precautions. 2. In 3 weeks, improve L hip MMT all planes 1/2 grade. 3. In 3 weeks, patient will be able to ambulate up and down 4 stairs with 1 rail and SPC without Cut [place] Log Goals: 1. In 6 weeks, patient will be able to ambulate household distances without AD Mod I. 2. In 6 weeks, patient will be able to complete sit<>stand from elevated mat without use of UE's. 3. In 6 weeks, improve LEFS score at least 10 points. Treatment Plan: Modalities to reduce pain, spasms and effusion. Manual therapy to restore motion and function. Therapeutic exercise to improve strength and flexibility. Neuromuscular re-education for posture and balance. Therapeutic activities to return to functional activities of daily living. Electronically signed by: Xiao Oneill PT, DPT Please sign and return to therapist. Thank you for your referral.
--- NOTE | 2024-06-09 12:34 | MHC.PT.DC ---
[facility] [place] Office [place] Office [place] Office [address] Amanda Bernal [address] [phone] F: [phone] F: [phone] F: [phone] F: [phone] Physical Therapy Discharge Report Diagnosis: L MICAH Date of Surgery: 11/21/23 Date of Evaluation: 12/13/23 Date of Discharge: 02/06/24 Treatments to Date: 14 Cancellations to Date: No Shows to Date: Discharge Status: Achieved Goals Improved Function Independent with HEP Discharge Summary: Pt is a 73yo female who was referred to outpatient PT s/p L MICAH. Pt participated fully x 14 visits, improved strength, balance, to promote to gait WNL. LEFS with significant improvement from 18/80 to 46/80 and able to ambulate without a device no pain. Pt has met all goals in POC and is recommended to continue maintaining activity level with HEP completion independently. Pt in agreement with D/C at this time. Thank you for this referral. Electronically signed by: Xiao Oneill PT, DPT Please sign and return to therapist. Thank you for your referral.
== END 2024-06-09 12:34 | disposition home or self-care (01) ==
LOC: HO.PT 13:00
PROVIDERS: PCP Internal Medicine; Visit Provider Physician Assistant
DX: Z47.1 Aftercare following joint replacement surgery (principal); Z96.642 Presence of left artificial hip joint
CPT/HCPCS: 97110; 97112; 97116; 97140; 97161; 97530

== ENCOUNTER 2024-02-11 11:17 | Outpatient (AMB) | payer MEDICARE, SELFPAY ==
--- NOTE | 2024-02-11 11:23 | A.OFFVIS_ITS ---
Intake Visit Reasons: P/O LT MICAH 11/21/23 NE Intake Note: Gayathri is a 73 year old female who presents today post operatively s/p Left MICAH 11/21/23 NE. Patient reports she is doing well. She feels she is having improvement but it is slow. Accompanied by: Daughter Allergies buspirone [From BUSPAR] Allergy (Intermediate, Verified 02/11/24 11:24) TREMORS,PANIC ATTACK prednisone [PREDNISONE] Allergy (Intermediate, Verified 02/11/24 11:24) BLEEDING, agitation bupropion [From WELLBUTRIN] Adverse Reaction (Severe, Verified 02/11/24 11:24) AUDITORY HALLUCINATIONS aripiprazole [From ABILIFY] Adverse Reaction (Intermediate, Verified 02/11/24 11:24) DOUBLE VISION,PANIC ATTACK ketorolac [From Toradol] Adverse Reaction (Intermediate, Verified 02/11/24 11:24) dry heaving paroxetine [From PAXIL] Adverse Reaction (Intermediate, Verified 02/11/24 11:24) PANIC ATTACKS procaine [From NOVOCAIN] Adverse Reaction (Mild, Verified 02/11/24 11:24) fregoso when wears off CHLORINE Adverse Reaction (Intermediate, Uncoded 02/11/24 11:24) hayfever type reaction drug sensitivity Adverse Reaction (Intermediate, Uncoded 02/11/24 11:24) side effects from many meds HPI HPI P/O LT MICAH 11/21/23 NE: Details: Gayathri is a 73 year old female who presents today post operatively s/p Left MICAH 11/21/23 NE. Patient reports she is doing well. She feels she is having improvement but it is slow. [facility] Medical History Alcohol dependence in remission Family history of anesthesia complication Anesthesia complication Arthritis Depression RSV (respiratory syncytial virus infection) Hearing loss COPD (chronic obstructive pulmonary disease) Elevated cholesterol Surgical History History of dental confucianism History of hip surgery Hx of dilation and curettage H/O colonoscopy Social History (Updated 02/11/24 @ 11:26 by AL Shin) Household Members: None Household Members Other:: lives in 3 family and daughter in another apt Housing: House Are you a primary care mgr to a significant other at home: No Do you presently have visiting nurse or other home services: No Patient Tobacco Use Status: Current everyday Tobacco user Tobacco use type: Cigarette Cigarette Packs Per Day: 1 Cigarettes Per Day: 10 Years Smoked: 40 service: No Current occupational status: retired Physical Exam Extrem Other: No pain with hip ROM Inc /d/i No gait antalgia Assessment & Plan Assessment & Plan (1) S/P total left hip arthroplasty: Onset Date: ~11/21/23 Comment: NE Code(s): Z96.642 - Presence of left artificial hip joint Category: Medical Plan: Doing well. May follow up in 9 mo. Dental prophylaxis discussed Coding Level of Care Code Global (82074) Diagnoses S/P total left hip arthroplasty Z96.642
== END 2024-02-11 12:16 | disposition home or self-care (01) ==
PROVIDERS: PCP Internal Medicine; Visit Provider Orthopaedic Surgery
DX: Z96.642 Presence of left artificial hip joint (principal)
CPT/HCPCS: 99024

== ENCOUNTER → 2024-02-11 11:17 | Outpatient (BNVA) | payer MEDICARE, SELFPAY | PROVIDERS: PCP Internal Medicine; Visit Provider Orthopaedic Surgery | DX: Z47.1 Aftercare following joint replacement surgery (principal); Z96.642 Presence of left artificial hip joint | CPT/HCPCS: 99212 ==

== ENCOUNTER 2024-07-02 14:00 | Outpatient (REF) | payer MEDICARE, SELFPAY ==
--- NOTE | ~2024-07-02 | MM_ITS ---
EXAMINATION: BONE DENSITOMETRY CLINICAL INDICATION: Asymptomatic menopausal state. COMPARISON: Previous BD dated 03/02/2016 and baseline BD dated 07/13/2008. TECHNIQUE: Using a [employer] DXA System (software version: 13.1) manufactured by [employer], dual-energy x-ray absorptiometry was performed of the lumbar spine and right hip due to left hip replacement. The images are of good technical quality. Summary results are attached. FINDINGS: RIGHT FEMUR, NECK: Current: BMD 0.692 g/cm2, Z-score -0.7, T-score -2.5, osteoporosis. Prior: BMD 0.742 g/cm2. Baseline: BMD 0.791 g/cm2. RIGHT FEMUR, TOTAL: Current: BMD 0.843 g/cm2, Z-score 0.3, T-score -1.3, osteopenia, 1.4% increase from previous, 9.3% decrease from baseline (<5% change is not significant). Prior: BMD 0.831 g/cm2. Baseline: BMD 0.929 g/cm2. AP SPINE L1-L2 (excluding L3 and L4): The data of L1-L4 has been changed to exclude the L3 and L4 vertebral bodies, because at these levels may cause overestimation of lumbar spine density. Current: BMD 0.819 g/cm2, Z-score -1.4, T-score -2.9, osteoporosis, 12.8% decrease from previous, 14.0% decrease from baseline (<5% change is not significant). Prior: BMD 0.939 g/cm2. Baseline: BMD 0.952 g/cm2. IDENTIFIED RISK FACTORS: Menopause, tobacco user (current smoker). HISTORY OF FRACTURE: None listed. MEDICATIONS: Calcium, multivitamin, vitamin D. MM/XR DEXA axial skeleton IMPRESSION: 1. DIAGNOSIS: Osteoporosis based on the lowest T-score value of -2.9 in the lumbar spine applying World Health Organization criteria. 2. 10-YEAR FRACTURE RISK PREDICTION, FRAX: According to the guidelines, FRAX calculation should only be performed on patients in the osteopenia bone density category. Therefore, FRAX was not performed on this patient. 3. Treatment Recommendations: NOF guidelines recommend consideration for treatment in postmenopausal women and men age 50 and older presenting with the following: -A hip or vertebral (clinical or morphometric) fracture. -T-score less than or equal to -2.5 at the femoral neck or spine after appropriate evaluation to exclude secondary causes. -Low bone mass at the hip or spine and a 10-year fracture probability by FRAX of greater than or equal to 3% for hip fracture or greater than or equal to 20% for major osteoporotic fracture based on the [place] adapted WHO algorithm. 4. Other Recommendations: All treatment decisions require clinical judgment and consideration of individual patient factors, including patient preferences, comorbidities, previous drug use, risk factors not captured in the FRAX model (e.g. frailty, falls, vitamin D deficiency, increased bone turnover, interval significant decline in bone density) and possible under or overestimation of fracture risk by FRAX. Additional medical evaluation for secondary cause of low bone mineral density may be appropriate. FUTURE SCAN RECOMMENDATION: People with diagnosed cases of osteoporosis or at high risk for fracture should have regular bone mineral density tests. For patients eligible for Medicare, routine testing is allowed once every 2 years. The testing frequency can be increased to one year for patients who have rapidly progressing disease, those who are receiving or discontinuing medical therapy to restore bone mass, or have additional risk factors. Electronically signed by: Sami Nelson MD 07/03/2024 09:28 AM SAMIR MACKENZIE
--- NOTE | ~2024-07-02 | MM_ITS ---
EXAMINATION: MM SCREENING DIGITAL BREAST TOMOSYNTHESIS, BILATERAL CLINICAL INFORMATION: Screening. Asymptomatic. COMPARISON: Mammography: Comparison is made with available priors TECHNIQUE: Digital breast mammography with tomosynthesis is performed in both the craniocaudal and mediolateral oblique views along with computer-aided detection (CAD). FINDINGS: There are scattered areas of fibroglandular density (ACR BI-RADS breast composition Category b). There are no significant masses, abnormal calcifications, or other abnormalities. MM/MM tomosynthesis screening BI IMPRESSION: No mammographic evidence of malignancy. ASSESSMENT: BI-RADS BI-RADS 1 - Negative RECOMMENDATION: Routine annual mammography screening. 1 year F/U This examination should not preclude the clinical evaluation of a suspicious palpable abnormality. This patient's information was entered into a reminder system with a target due date for their next mammogram. Electronically signed by: Zeynep Crane DO 07/14/2024 09:05 AM SAMIR
== END 2024-07-02 14:01 | disposition home or self-care (01) ==
LOC: HO.MAMMO 14:00
PROVIDERS: PCP Internal Medicine; Visit Provider Internal Medicine
DX: Z12.31 Encounter for screening mammogram for malignant neoplasm of breast (principal); Z13.820 Encounter for screening for osteoporosis; Z78.0 Asymptomatic menopausal state
CPT/HCPCS: 77063; 77067; 77080

== ENCOUNTER → 2024-07-02 14:15 | Outpatient (BNV) | payer MEDICARE, SELFPAY | PROVIDERS: PCP Internal Medicine; Visit Provider Internal Medicine | DX: Z12.31 Encounter for screening mammogram for malignant neoplasm of breast (principal) | CPT/HCPCS: 77063; 77067 ==

== ENCOUNTER 2024-07-15 10:07 | Outpatient (REF) | payer MEDICARE, SELFPAY | END 2024-07-15 10:08 | disposition home or self-care (01) | LOC: HO.CT 10:07 | PROVIDERS: PCP Internal Medicine; Visit Provider Physician Assistant Medical | DX: Z12.2 Encounter for screening for malignant neoplasm of respiratory organs (principal); F17.210 Nicotine dependence, cigarettes, uncomplicated | CPT/HCPCS: 71271 ==

== ENCOUNTER → 2024-07-15 10:09 | Outpatient (BNV) | payer MEDICARE, SELFPAY | PROVIDERS: PCP Internal Medicine; Visit Provider Radiology Diagnostic Radiology | DX: Z12.2 Encounter for screening for malignant neoplasm of respiratory organs (principal); F17.210 Nicotine dependence, cigarettes, uncomplicated | CPT/HCPCS: 71271 ==

== ENCOUNTER 2024-11-17 09:41 | Outpatient (REF) | payer MEDICARE, SELFPAY ==
--- NOTE | ~2024-11-17 | XR_ITS ---
EXAMINATION: XR HIP, LEFT CLINICAL INFORMATION: M25.552 - Pain in left hip COMPARISON: Pelvis x-ray dated December 31, 2023 Correlated to AP pelvis dated November 17, 2024.. TECHNIQUE: Cross lateral view of the left hip. FINDINGS: Total left hip arthroplasty prosthesis well seated in the osseous acetabulum and proximal femur. XR/XR hip LT 1V IMPRESSION: No acute fracture or dislocation. Electronically signed by: Carter Phillips MD 11/17/2024 02:40 PM EDT
--- NOTE | ~2024-11-17 | XR_ITS ---
EXAMINATION: XR PELVIS CLINICAL INFORMATION: M25.559 - Pain in unspecified hip COMPARISON: Cross lateral view dated November 17, 2024. Pelvis x-ray dated December 31, 2023. TECHNIQUE: AP view of the pelvis. FINDINGS: Total left hip arthroplasty prosthesis well-seated in the osseous left acetabulum and proximal femur. No gross malalignment. No gross loosening in the proximal diaphysis of the femur. Minimal loosening in the acetabular region and likely greater trochanter. XR/XR pelvis 1-2V IMPRESSION: Minimal loosening in the greater trochanter and acetabulum. Electronically signed by: Carter Phillips MD 11/17/2024 02:42 PM EDT
--- OUTSIDE RECORDS SUMMARY | 2024-11-17 11:02 | XMS_ITS ---
Author Organization [facility] Address [address] [place] [address] Care Team Providers Care Production Laborer Name Role Phone Ousmane Umanzor MD Primary Care Provider Harrison Brown Jr Unavailable Allergies Allergen (clinical drug ingredient) Drug/Non Drug Allergy documented on EMR Reaction Allergy Type Onset Date Status naproxen Naprosyn Unknown Drug Allergy Active celecoxib CeleBREX Unknown Drug Allergy Active ketorolac toradol (uncoded) Unknown Allergy Ac tive REASON FOR VISIT Patient presents today for acid reflux Medications Medication SIG (Take, Route, Frequency, Duration) Notes Start Date End Date Status Multi Vitamin - 1 tablet Orally Once a day for 30 day(s) Active Multi Vitamin/Minerals Orally Active Nystatin 416831 UNIT 1 tablet Orally phyllis ry 8 hrs for 10 day(s) as needed Active Latanoprost Active Vitamin D Active CeleXA 20 MG 1 tablet Orally Once a day Active Progesterone Active Calcium Active Simvastatin 40 MG 1 tablet in the even ing Orally Once a day Active Citalopram Hydrobromide 10 MG 1 tablet Orally Once a day for 30 day(s) Active Vitamin C Active Zinc Active Probiotic Active Vital Signs Temperature 98.0 degrees Fahrenheit 01/09/20 24 Blood pressure systolic 000 mm Hg 01/09/20 24 Blood pressure diastolic 00 mm Hg 024 Height 65.5 in 01/09/2024 Weight 157 lbs 01/09/2024 BMI 25.73 kg/m2 01/09/2024 Encounters Encounter Location Date Provider Diagnosis [facility] [address] [place] [address] 01/09/2024 Harrison Mendoza Jr Gastroesophageal reflux disease, unspecified whether esophagitis present K21.9 and FH: colon cancer Z80.0 Assessments Encounter Date Diagnosis (ICD Code) Assessment Notes Treatment Notes Treatment Clinical Notes Section Notes 01/09/2024 Gastroesophageal reflux disease, unspecified whether esophagitis present (ICD-10 - K21.9) Digestive diseases material was printed We recommended she continue to follow diet, lifestyle modifications, and weight management regarding the treatment of reflux. She can use wlhv-hbg-ekyzi er antacids as needed. She is up-to-date on colorectal cancer screening. Followup will be in one year. 01/09/2024 FH: colon cancer (ICD-10 - Z80.0) We recommended she continue to follow diet, lifestyle modifications, and weight management regarding the treatment of reflux. She can use jmir-nwe-trlgr er antacids as needed. She is up-to-date on colorectal cancer screening. Followup will be in one year. Plan Of Treatment Treatment Notes Assessment Notes Gastroesophageal reflux dise ase, unspecified whether esophagitis present Digestive diseases material was printed Next Appt Details Follow Up: 1 Year, Reason: Provider Name:Harrison godfrey Jr, 01/07/2025 11:00:00 AM, [address] [place] [address], [address], [place], [address], Progress Notes * SHERI ADAMEOB:1950 (73 yo F)Acc No.[id number]:01/09/2024 Progress Notes Patient:?PEMA ADAME Provider:?Harrison Mendoza MD :1950???Age:73 Y???Sex:Female D ate:01/09/2024 Address:[address] [place], [place] [id number] Pcp:Ousmane Umanzor MD Subjective: * Chief Complaints: * ???1. Patient presents today for acid reflux. * HPI: ???New symptom(s):? Pema is a pleasant 73-year-old woman seen today in followup of gastroesophageal reflux disease. Since we saw her last, she's been doing well. She has no complaints of dysphagia, hematemesis, or melena. She has some heartburn intermittently, but states this occurs less than one time per week. She uses ojss-nos-typpqaz liquid antacids as needed. She had hip surgery with some nausea and vomiting afterwards which she thinks may have been related to the anesthesia. Her hiccups have resolved. * Medical History:?Colonoscopy 04/02 for family history, normal, five-year followup optional, Anxiety, Elevated cholesterol, Environmental allergies, COPD, Hearing loss, 11/21/23-total hip replacement left. * Surgical History:?D&C , [place] al extractions and implants , Left hip surgery , total hip replacement left 11/21/23. * Family History:?Father: dece ased, father had hx of 2 heart attacks, diagnosed with Colon cancer, Heart disease.?Mother: , lung ds/ blood clot.?Daughter(s): alive, daughter in her 20's, diagnosed with Colon polyps.? The patients father had colon cancer and she has a daughter that had polyps in her 20's. 2 aunts on mothers side with stomach cancer. No family history of liver cancer. * Social History:?Tobacco Use:?Tobacco Use/Smoking?Are you a: current smoker , How often do you smoke cigarettes?: every day, How many cigarettes a day do you smoke?: 11-20, How soon after you wake up do you smoke your first cigarette?: 6-30 minutes, Are you interested in quitting?: Thinking about quitting.?Drugs/Alcohol:?Alcohol Screen?Points: 0, Interpretation: Negative.? * Medications:?Taking Multi Vi tamin - Tablet 1 tablet Orally Once a day, Taking Nystatin 285376 UNIT Tablet 1 tablet Orally every 8 hrs, Notes: as needed, Taking Citalopram Hydrobromide 10 MG Tablet 1 tablet Orally Once a day, Taking Vitamin C , Taking Zinc , Taking Probiotic , Taking Simvastatin 40 MG Tablet 1 tablet in the evening Orally Once a day, Taking CeleXA 20 MG Tablet 1 tablet Orally Once a day, Taking Progesterone , Taking Calcium , Taking Vitamin D , Taking Multi Vitamin/Minerals Tablet Orally , Taking Latanoprost , Discontinued MiraLax (colon prep) 8.3 ounce ((238) grams mixed with Gatorade or Crystal Light orally begin at 5:00 p.m. the day before the procedure, Medication List reviewed and reconciled with the patient * Allergies:?Naprosyn, CeleBRE X, toradol. Objective: * Vitals:?Wt: 157 lbs, Ht: 65. 5 in, BMI:25.73 Index, BP: 000/00 mm Hg, Temp: 98.0. * Examination: ???General Examination: ???On examination today, she appears well. Skin is anicteric. Lungs are clear. Heart shows regular rate and rhythm. Abdomen is soft no focal masses or tenderness. Extremities are without edema. Assessment: * Assessment: 1.?Gastroesophageal reflux d isease, unspecified whether esophagitis present - K21.9 (Primary)?2.?FH: colon cancer - Z80.0? We recommended she continue to follow diet, lifestyle modifications, and weight management regarding the treatment of reflux. She can use vecq-ddq-xhcgfrm antacids as needed. She is up-to-date on colorectal cancer screening. Followup will be in one year. Plan: * Treatment: * Procedure Codes:?3017F COLOR ECTAL CA SCREEN DOC REV, G9902 Pt scrn tbco and id as user, G9745 DOC RSN FOR NOT SCREEN/REC F/U HBP * Preventive Medicine:? ??Counseling:?Care goal follow-up plan:?Above Normal BMI Follow-up?Giving encouragement to exercise,?BMI management provided?Yes.?Smoking?Patient counseled on the dangers of tobacco use and urged to quit.?01/09/2024,?Relapse prevention:?Discussed the possibility of negative mood or depression after quitting..? ??Urinary Incontinence:?Urinary Incontinence?Assessment:?Present,?Plan of care documented:?Yes,?Type of plan of care:?Lifestyle interventions.? * Follow Up:?1 Year * * Sign off status: Completed true * Provider:?Harrison Mendoza MD Date:?0 01/09/2024 Generated for Max wasserman/Anusha/Joan on:?11/17/2024 11:02 AM EDT History and Physical Notes * HPI (History of Present Illness) Category Sub-Category Detail Notes Category Not es New symptom(s) Pema is a ple asant 73-year-old woman seen today in followup of gastroesophageal reflux disease. Since we saw her last, she's been doing well. She has no complaints of dysphagia, hematemesis, or melena. She has some heartburn intermittently, but states this occurs less than one time per week. She uses jysn-qtr-rjhwtzv liquid antacids as needed. She had hip surgery with some nausea and vomiting afterwards which she thinks may have been related to the anesthesia. Her hiccups have resolved. Examination Category Sub-Category Detail Notes Category Not es General Examination On exami nation today, she appears well. Skin is anicteric. Lungs are clear. Heart shows regular rate and rhythm. Abdomen is soft no focal masses or tenderness. Extremities are without edema.
--- OUTSIDE RECORDS SUMMARY | 2024-11-17 11:03 | XMS_ITS | Patient Health Record ---
Author Organization [facility] Address [address] [place] [address] Care Team Providers Care Presser First Name Role Phone Ousmane Umanzor MD Primary Care Provider Harrison Brown Jr Unavailable [phone] Allergies Allergen (clinical drug ingredient) Drug/Non Drug Allergy documented on EMR Reaction Allergy Type Onset Date Status naproxen Naprosyn Unknown Drug Allergy Active celecoxib CeleBREX Unknown Drug Allergy Active ketorolac toradol (uncoded) Unknown Allergy Ac tive Reason For Referral No Information Medications Medication SIG (Take, Route, Frequency, Duration) Notes Start Date End Date Status Vitamin C Active Zinc Active Probiotic Active Simvastatin 40 MG 1 tablet in the even ing Orally Once a day Active Vitamin D Active Multi Vitamin - 1 tablet Orally Once a day for 30 day(s) Active Multi Vitamin/Minerals Orally Active Nystatin 818717 UNIT 1 tablet Orally phyllis ry 8 hrs for 10 day(s) as needed Active Latanoprost Active Citalopram Hydrobromide 10 MG 1 tablet Orally Once a day for 30 day(s) Active CeleXA 20 MG 1 tablet Orally Once a day Active Progesterone Active Calcium Active Immunizations Vaccine Route Administration Date Status Comme nts Influenza Unknown 04/13/2020 Administered Influenza Unknown 07/04/2022 Administered Influenza Unknown 07/02/2023 Administered Problems Problem Type SNOMED Code ICD Code Onset Dates Problem Status W/U Status Risk Notes Problem 192341990 Colon cancer screening (Z12.11) Active confirmed Problem 922318249 Encounter for ot her preprocedural examination (Z01.818) Active confirmed Problem 410602324 FH: colon cancer (Z80.0) Active confirmed Problem 368904377 Gastroesophageal reflux disease, unspecified whether esophagitis present (K21.9) Active confirmed Problem 763101035 Abdominal sympto ms (R19.8) Active confirmed Vital Signs Temperature 98.0 degrees Fahrenheit 01/09/2024 Blood pressure diastolic 00 mm Hg 01/09/2024 Height 65.5 in 01/09/2024 Blood pressure systolic 000 mm Hg 01/09/2024 Weight 157 lbs 01/09/2024 BMI 25.73 kg/m2 01/09/2024 Encounters Encounter Location Date Provider Diagnosis [facility] [address] [place] [address] 01/09/2024 Harrison Mendoza Jr Gastroesophageal reflux disease, unspecified whether esophagitis present K21.9 and FH: colon cancer Z80.0 Assessments Encounter Date Diagnosis (ICD Code) Assessment Notes Treatment Notes Treatment Clinical Notes Section Notes 01/09/2024 FH: colon cancer (ICD-10 - Z80.0) We recommended she continue to follow diet, lifestyle modifications, and weight management regarding the treatment of reflux. She can use kjov-eis-cwpwx er antacids as needed. She is up-to-date on colorectal cancer screening. Followup will be in one year. 01/09/2024 Gastroesophageal reflux disease, unspecified whether esophagitis present (ICD-10 - K21.9) Digestive diseases material was printed We recommended she continue to follow diet, lifestyle modifications, and weight management regarding the treatment of reflux. She can use xuin-lyl-trffk er antacids as needed. She is up-to-date on colorectal cancer screening. Followup will be in one year. Plan Of Treatment Future Test Test Name Order Date COLONOSCOPY 06/04/2014 COLONOSCOPY 03/23/2021 Next Appt Details Provider Name:Harrison godfrey , 01/07/2025 11:00:00 AM, [address], [address], [place], [address], Insurance Providers Payer Name Payer Address Payer Phone Subscriber Number Group Number Insured Name Patient Relationship to Insured Coverage Start Date Coverage End Date [facility] [address] [place] [phone] [id number] PEMA ADAME Self - patient is the insured Medical (General) History Medical History History ICD Code Colonoscopy 04/02 for family history, nor mal, five-year followup optional Anxiety Elevated cholesterol Environmental allergies COPD Hearing loss 11/21/23-total hip replacement left Surgical History Surgery Date(Month/Year) D&C Dental extractions and implants Left hip surgery total hip replacement left 11/21/23
== END 2024-11-17 09:42 | disposition home or self-care (01) ==
LOC: HO.HOSX 09:41
PROVIDERS: Visit Provider Orthopaedic Surgery
DX: M25.559 Pain in unspecified hip (principal); M25.552 Pain in left hip; Z96.642 Presence of left artificial hip joint
CPT/HCPCS: 72170; 73501; 99212

== ENCOUNTER 2024-11-17 10:32 | Outpatient (AMB) | payer MEDICARE, SELFPAY ==
--- NOTE | 2024-11-17 10:40 | A.OFFVIS_ITS ---
Intake Visit Reasons: OV-LT MICAH 11/21/23 NE Intake Note: Gayathri is a 73 year old female who presents today for a one year follow up s/p Left MICAH 11/21/23 NE. Patient reports that she is doing well, she has had two occasions of increased pain in the morning. She explains that these nights she slept on her left side and woke up in pain, pain resolved with movement. Allergies buspirone [From BUSPAR] Allergy (Intermediate, Verified 11/17/24 10:46) TREMORS,PANIC ATTACK prednisone [PREDNISONE] Allergy (Intermediate, Verified 11/17/24 10:46) BLEEDING, agitation bupropion [From WELLBUTRIN] Adverse Reaction (Severe, Verified 11/17/24 10:46) AUDITORY HALLUCINATIONS aripiprazole [From ABILIFY] Adverse Reaction (Intermediate, Verified 11/17/24 10:46) DOUBLE VISION,PANIC ATTACK ketorolac [From Toradol] Adverse Reaction (Intermediate, Verified 11/17/24 10:46) dry heaving paroxetine [From PAXIL] Adverse Reaction (Intermediate, Verified 11/17/24 10:46) PANIC ATTACKS procaine [From NOVOCAIN] Adverse Reaction (Mild, Verified 11/17/24 10:46) fregoso when wears off CHLORINE Adverse Reaction (Intermediate, Uncoded 11/17/24 10:46) hayfever type reaction drug sensitivity Adverse Reaction (Intermediate, Uncoded 11/17/24 10:46) side effects from many meds HPI HPI OV-LT MICAH 11/21/23 NE: Details: Gayathri is a 73 year old female who presents today for a one year follow up s/p Left MICAH 11/21/23 NE. Patient reports that she is doing well, she has had two occasions of increased pain in the morning. She explains that these nights she slept on her left side and woke up in pain, pain resolved with movement. 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 History of hip surgery Hx of dilation and curettage H/O colonoscopy Social History Household Members: None Household Members Other:: lives in 3 family and daughter in another apt Housing: House Are you a primary personal care service provider to a significant other at home: No Do you presently have visiting nurse or other home services: No Patient Tobacco Use Status: Current everyday Tobacco user Tobacco use type: Cigarette Cigarette Packs Per Day: 1 Cigarettes Per Day: 10 Years Smoked: 40 service: No Current occupational status: retired Physical Exam Extrem Other: Normal gait No pain with left hip range of motion Results Reviewed Results Reviewed: I personally reviewed relevant radiographs. Left MICAH in expected post operative position with no hardware complications or evidence of loosening Assessment & Plan Assessment & Plan (1) S/P total left hip arthroplasty: Onset Date: ~11/21/23 Comment: NE Code(s): Z96.642 - Presence of left artificial hip joint Category: Surgical Plan: Twelve months status post left hip replacement doing well. Did have some postoperative mental status changes which resolved completely. Continue activity as tolerated. Follow up as needed. Orders: Orders XR pelvis 1-2V Today M25.559 - Pain in unspecified hip XR hip LT 1V Today M25.552 - Pain in left hip Coding Level of Care Code Est Pt Level 3 (20216) Diagnoses S/P total left hip arthroplasty Z96.642
== END 2024-11-17 11:09 | disposition home or self-care (01) ==
LOC: HO.HOS 10:33
PROVIDERS: PCP Internal Medicine; Visit Provider Orthopaedic Surgery
DX: Z47.89 Encounter for other orthopedic aftercare (principal); Z96.642 Presence of left artificial hip joint
CPT/HCPCS: 99213

== ENCOUNTER → 2024-11-17 10:35 | Outpatient (BNV) | payer MEDICARE, SELFPAY | PROVIDERS: Visit Provider Radiology Diagnostic Radiology | DX: M25.552 Pain in left hip (principal) | CPT/HCPCS: 72170; 73501 ==

== ENCOUNTER 2024-12-12 13:50 | Outpatient (AMB) | payer MEDICARE, SELFPAY ==
--- NOTE | 2024-12-12 13:55 | MHC.PC.OV ---
Vital Signs 12/12/24 14:04 Height 5 ft 5 in Weight 72.121 kg BMI 26.5 BP 122/70 Blood Pressure Location Lt brachial Position Sitting Pulse 84 Pulse Source Pulse Oximeter Temp 97.5 F Temp Source Axillary Pulse Oximetry (%) 95 Oxygen Delivery Method Room Air Intake Visit Reasons: Routine Children'S Minister Required: No Accompanied by: Self / Same As Patient Allergies buspirone [From BUSPAR] Allergy (Intermediate, Verified 12/12/24 13:55) TREMORS,PANIC ATTACK prednisone [PREDNISONE] Allergy (Intermediate, Verified 12/12/24 13:55) BLEEDING, agitation bupropion [From WELLBUTRIN] Adverse Reaction (Severe, Verified 12/12/24 13:55) AUDITORY HALLUCINATIONS aripiprazole [From ABILIFY] Adverse Reaction (Intermediate, Verified 12/12/24 13:55) DOUBLE VISION,PANIC ATTACK ketorolac [From Toradol] Adverse Reaction (Intermediate, Verified 12/12/24 13:55) dry heaving paroxetine [From PAXIL] Adverse Reaction (Intermediate, Verified 12/12/24 13:55) PANIC ATTACKS procaine [From NOVOCAIN] Adverse Reaction (Mild, Verified 12/12/24 13:55) fregoso when wears off CHLORINE Adverse Reaction (Intermediate, Uncoded 11/17/24 10:46) hayfever type reaction drug sensitivity Adverse Reaction (Intermediate, Uncoded 11/17/24 10:46) side effects from many meds Medication List - Last Reconciled 12/12/24 by HIEN Lindsay acetaminophen 650 mg (2 x 325 mg) PO Q6H PRN 30 days albuterol sulfate 90 mcg/actuation 2 puffs inhalation Q6H PRN ascorbic acid (vitamin C) ER (Vitamin C) 500 mg PO BEDTIME aspirin 325 mg PO BID cholecalciferol (vitamin D3) (Vitamin D3) 50 mcg PO QAM citalopram 10 mg PO QAM lactobacillus comb no.10 (Probiotic) 20,000 mmu cells PO QAM latanoprost 0.005% 1 drp ophthalmic (eye) BEDTIME multivitamin 1 tab PO QAM simvastatin 40 mg PO BEDTIME Tobacco use date assessed: 12/12/24 Fall risk assessment: No Falls in past year Last assessed Fall Risk: 12/12/24 Dental Screening Dental Screen Date: 12/12/24 Did you have a dental visit in the last 12 months?: Yes Did you have a dental problem in the last 6 months where you did not have access to dental care?: No HPI HPI Comments History of Present Illness Details History of Present Illness The patient is a 74-year-old female presenting with concerns related to depression management, ongoing tobacco use, and respiratory symptoms. She was initially on Paxil for depression but switched to citalopram, where she experienced significant side effects, prompting a reduction in dosage to 2.5 mg under the care of [facility], specifically Dr. Huynh's office and [facility]. The lower medication dosage has improved her mood and daily functioning, and she denies any urges to harm herself or others. Regarding tobacco use, she acknowledges ongoing smoking habits with attempts to quit involving vaping which were unsuccessful. Her addiction to nicotine is highlighted, as well as the challenges she faces in ceasing use. Risks of continued tobacco use have been discussed, including COPD and vascular complications. The patient reports respiratory difficulty, experiencing shortness of breath on exertion and episodes of morning and evening wheezing and coughing. She has not consistently used inhalers in the past but is open to trying albuterol for symptom relief. Socially, the patient seeks to resume previously enjoyable activities, including drawing and outings, yet feels constrained by decreased stamina partially attributed to discontinuing daily exercises. She aims to establish a new fulfilling daily routine to overcome the impact of past overmedication and pandemic-induced isolation. Review of Systems - Psychiatric: Reports improved mood; denies suicidal thoughts. - Respiratory: Reports shortness of breath on exertion, morning and evening wheezing, and coughing. - Social: Reports interest in engaging in hobbies and social activities. - Substance Use: Reports ongoing tobacco use; unsuccessful past attempts to quit using vaping. Vital Signs Reviewed Health Maintenance - Smoking cessation discussion emphasizing risks including COPD and cardiovascular issues. - Discussion of exercise resumption for improved stamina. Physical Exam Constitutional: Awake and alert, no apparent distress Heart: RRR, S1S2, no murmurs, no edema Lungs: CTA bilaterally, no wheezing, short of breath carrying heavy things and second flight of stairs, recovers quickly when resting, wheezing and coughing in the morning and evening Extremities: No calf tenderness Skin: Warm and dry Neuro: Alert and oriented x 3 Assessment and Plan 1. Major Depressive Disorder The patient is managing well on a reduced citalopram dose of 2.5 mg and is under the continued care of Dr. Huynh's PA for monitoring depression symptoms. Current treatment has resulted in a return of her emotions and motivation, with no present indications for medication changes. 2. Tobacco Use Disorder The patient remains a tobacco user and has previously failed cessation attempts with vaping. Risks pertaining to sustained tobacco use were discussed, and alternative cessation methods like hypnosis may be considered given her past successful experiences. 3. Chronic Obstructive Pulmonary Disease (COPD) Patient reports typical COPD symptoms and has previously used inhalers successfully for acute episodes. A rescue inhaler, specifically albuterol, has been recommended for symptom management with assurance that it contains no NSAIDs or prednisone. Advised to contact the office should symptoms persist for further inhaler management and possible PFT [facility] Medical History (Updated 12/12/24 @ 14:27 by HIEN Lindsay) Nicotine dependence, cigarettes, uncomplicated Alcohol dependence in remission Family history of anesthesia complication Anesthesia complication Arthritis Depression RSV (respiratory syncytial virus infection) Hearing loss COPD (chronic obstructive pulmonary disease) Elevated cholesterol Surgical History S/P total left hip arthroplasty (~11/21/23) History of dental samaritan History of hip surgery Hx of dilation and curettage H/O colonoscopy Family History (Updated 12/12/24 @ 14:16 by Dina Mejía MA) Mother No problems noted. Father No problems noted. Sister Mental health disorder Social History Household Members: None Household Members Other:: lives in 3 family and daughter in another apt Housing: House Are you a primary care taker to a significant other at home: No Do you presently have visiting nurse or other home services: No Patient Tobacco Use Status: Current everyday Tobacco user Tobacco use type: Cigarette Cigarette Packs Per Day: 1 Cigarettes Per Day: 10 Years Smoked: 40 e-Cigarette/Vaping Use: Currently Using service: No Current occupational status: retired Cognitive needs: No Hearing needs: Yes (bilateral hearing aids) Vision needs: Yes (rx glasses) Questionnaire PHQ-9 Over the last 2 weeks, how often have you been bothered by any of the following problems? 1. Little interest or pleasure in doing things: not at all 2. Feeling down, depressed, or hopeless: not at all 3. Trouble falling or staying asleep, or sleeping too much: not at all 4. Feeling tired or having little energy: not at all 5. Poor appetite or overeating: not at all 6. Feeling bad about yourself - or that you are a failure or have let yourself or your family down: not at all 7. Trouble concentrating on things, such as reading the newspaper or watching television: not at all 8. Moving or speaking so slowly that other people could have noticed. Or the opposite - being so fidgety or restless that you have been moving around a lot more than usual: not at all 9. Thoughts that you would be better off or of hurting yourself in some way: not at all Total score: 0 Source: Developed by Drs. Zen Rodas, Damari Nichols, Ion Corral and colleagues, with an educational gareth from [employer]. Thrive Questionnaire Date Thrive assessed: 12/12/24 I am a: Patient Within the past 12 months, did the food you bought not last and you didn't have the money to get more?: Never true Within the past 12 months, did you worry whether your food would run out before you got money to buy more?: Never true Do you have trouble paying for medicines?: No Do you have trouble getting transportation to medical appointments?: No Do you have trouble paying your heating and electricity bill?: No Do you have trouble taking care of your child, family member or friend?: No Do you have trouble with day-to-day activities such as bathing, preparing meals, shopping, managing finances, etc.?: No Are you currently unemployed and looking for a job?: No Are you interested in more education?: No THRIVE Score: 0 AUDIT C Alcohol Use Questionnaire (AUDIT-C) 1. How often do you have a drink containing alcohol?: Never 3. How often do you have six or more drinks on one occasion?: Never Total Score: 0 PATRICIA-7 AMB Questionnaire PATRICIA-7 Date PATRICIA - 7 assessed: 12/12/24 Feeling nervous, anxious, or on edge: 0 = Not at all Not being able to stop or control worryin = Not at all Worrying too much about different things: 0 = Not at all Trouble relaxin = Not at all Being so restless that it is hard to sit still: 0 = Not at all Becoming easily annoyed or irritable: 0 = Not at all Feeling afraid as if something awful might happen: 0 = Not at all Total PATRICIA-7 score (0-4 normal; 5-9 mild; 10-14 moderate; 15-21 severe): 0 Source: Developed by Drs. Zen Rodas, Damari Nichols, Ion Corral and colleagues, with an educational gareth from [employer]. Physical exam (Primary Care) Vital Signs: Last Vital Signs Temp 97.5 F 12/12/24 14:04 Pulse 84 12/12/24 14:04 BP 122/70 12/12/24 14:04 Pulse Ox 95 12/12/24 14:04 Oxygen Delivery Method Room Air 12/12/24 14:04 BMI result Body Mass Index 26.5 Tobacco/Smoking Status: Tobacco use Status Tobacco use date assessed 12/12/24 12/12/24 13:57 Patient Tobacco Use Status Current everyday Tobacco 12/12/24 13:57 Tobacco use type Cigarette 12/12/24 13:57 e-Cigarette/Vaping Use Currently Using 12/12/24 13:57 PHQ-9: PHQ-9 Score PHQ-9: Total score 0 12/12/24 14:20 Thrive Assessment: Date of Thrive Assessment Date Thrive assessed 12/12/24 12/12/24 13:57 Coding Level of Care Code New Pt Level 4 (44301) Complex EM visit Add On G2211 Diagnoses COPD (chronic obstructive pulmonary disease) J44.9 Hyperlipemia E78.5 Mood disorder F39 Nicotine dependence, cigarettes, uncomplicated F17.210 Assessment & Plan Assessment & Plan (1) COPD (chronic obstructive pulmonary disease): Comment: dx by XRAY-no inhalers or oxygen-some SOB on exertion if carrying heavy items Code(s): J44.9 - Chronic obstructive pulmonary disease, unspecified Category: Medical Plan: Overall controlled. Albuterol inhaler prescribed for use only as needed for shortness of breath or wheezing. Patient declines any therapy containing corticosteroid. Will hold off on further treatment at this time. Should symptoms persist, consider we discussing maintenance inhalers (2) Hyperlipemia: Code(s): E78.5 - Hyperlipidemia, unspecified Category: Medical Plan: Lipid panel ordered. Continue simvastatin 40 mg daily. Follow low-fat diet. Recommend increased exercise. (3) Mood disorder: Code(s): F39 - Unspecified mood [affective] disorder Category: Medical Plan: Stable. Continue following with Psychiatry and wean citalopram as recommended. Encouraged to continue with things she enjoys as mentioned in the office. Encouraged regular exercise (4) Nicotine dependence, cigarettes, uncomplicated: Comment: 40pyh Code(s): F17.210 - Nicotine dependence, cigarettes, uncomplicated Category: Medical Plan: Forty pack-year history. Reviewed most recent lung CT which was negative for any concerning pulmonary nodules. Strongly advised cessation. Recommended hypnosis as she declines/has failed medication therapy with adverse side effects on prior attempts to quit. Plan Follow up in 6 months. Complete labs today and prior to next visit Orders: Orders Hemoglobin A1c Today HIEN Lindsay E78.5 - Hyperlipidemia, unspecified, F39 - Unspecified mood [affective] disorder, J44.9 - Chronic obstructive pulmonary disease, unspecified, Z13.1 - Encounter for screening for diabetes mellitus Basic Metabolic Panel Today HIEN Lindsay E78.5 - Hyperlipidemia, unspecified, F39 - Unspecified mood [affective] disorder, J44.9 - Chronic obstructive pulmonary disease, unspecified, Z13.1 - Encounter for screening for diabetes mellitus Lipid Panel Today HIEN Lindsay E78.5 - Hyperlipidemia, unspecified, F39 - Unspecified mood [affective] disorder, J44.9 - Chronic obstructive pulmonary disease, unspecified, Z13.1 - Encounter for screening for diabetes mellitus Complete Blood Count Auto Diff Today HIEN Lindsay E78.5 - Hyperlipidemia, unspecified, F39 - Unspecified mood [affective] disorder, J44.9 - Chronic obstructive pulmonary disease, unspecified, Z13.1 - Encounter for screening for diabetes mellitus TSH reflex Free T4 Today HIEN Lindsay E78.5 - Hyperlipidemia, unspecified, F39 - Unspecified mood [affective] disorder, J44.9 - Chronic obstructive pulmonary disease, unspecified, Z13.1 - Encounter for screening for diabetes mellitus Medications: New albuterol sulfate 90 mcg/actuation 2 puffs inhalation Q6H PRN 8.5 grams 0RF shortness of breath or wheezing HIEN Lindsay simvastatin 40 mg PO BEDTIME 90 tabs 1RF HIEN Lindsay Changed From aspirin 325 mg PO BID 42 days 84 tabs 0RF To aspirin 325 mg PO BID Iván Triplett PA-C
[2024-12-12 14:04] VITALS: BP 122/70; PULSE 84; TEMP 36.4; O2SAT 95; BMI 26.5
--- OUTSIDE RECORDS SUMMARY | 2024-12-12 14:09 | XMS_ITS ---
Author Organization [facility] Address [address] [place] [address] Care Team Providers Care Statistical Financial Analyst Name Role Phone Ousmane Umanzor MD Primary [...] day(s) Active Multi Vitamin/Minerals Orally Active Nystatin 807258 UNIT 1 tablet Orally phyllis ry 8 [...] 01/09/2024 Encounters Encounter Location Date Provider Diagnosis [facility] [address] [place] [address] 01/09/2024 Harrison Mendoza Jr Gastroesophageal reflux disease, [...] the treatment of reflux. She can use qydj-fha-zphdg er antacids as needed. She is up-to-date on colorectal cancer screening. Followup will be in one year. 01/09/2024 FH: colon cancer (ICD-10 - Z80.0) We recommended she continue to follow diet, lifestyle modifications, and weight management regarding the treatment of reflux. She can use jhph-jtx-kgkzn er antacids as needed. She is up-to-date on colorectal cancer screening. Followup will be in one year. Plan Of Treatment Treatment Notes Assessment Notes Gastroesophageal reflux dise ase, unspecified whether esophagitis present Digestive diseases material was printed Next Appt Details Follow Up: 1 Year, Reason: Provider Name:Harrison godfrey Jr, 01/07/2025 11:00:00 AM, [address] [place] [address], [address], [place], [address], Progress Notes * SHERI ADAMEOB:1950 (73 yo F)Acc No.[id number]:01/09/2024 Progress Notes Patient:?PEMA ADAME Provider:?Harrison Mendoza MD :1950???Age:73 Y???Sex:Female D ate:01/09/2024 Address:[address] [place], [place] [id number] Pcp:Ousmane Umanzor MD Subjective: * Chief Complaints: [...] than one time per week. She uses qsdq-yaj-kbytkch liquid antacids as needed. She had hip surgery with some nausea and vomiting afterwards which she thinks may have been related to the anesthesia. Her hiccups have resolved. * Medical History:?Colonoscopy 04/02 for family history, normal, five-year followup optional, Anxiety, Elevated cholesterol, Environmental allergies, COPD, Hearing loss, 11/21/23-total hip replacement left. * Surgical History:?D&C , [place] al extractions and implants , Left hip [...] tablet Orally Once a day, Taking Nystatin 102280 UNIT Tablet 1 tablet Orally every 8 [...] the treatment of reflux. She can use qauq-nye-lcaaxqm antacids as needed. She is up-to-date on [...] MD Date:?0 01/09/2024 Generated for Max wasserman/Anusha/Joan on:?12/12/2024 02:08 PM EDT History and Physical Notes * HPI [...] than one time per week. She uses aznx-lax-zzfbrie liquid antacids as needed. She had hip [...]
--- OUTSIDE RECORDS SUMMARY | 2024-12-12 14:09 | XMS_ITS | Patient Health Record ---
Author Organization [facility] Address [address] [place] [address] Care Team Providers Care Alligator Hunter Name Role Phone Ousmane Umanzor MD Primary [...] day(s) Active Multi Vitamin/Minerals Orally Active Nystatin 648751 UNIT 1 tablet Orally phyllis ry 8 [...] Problem Status W/U Status Risk Notes Problem 744545990 Colon cancer screening (Z12.11) Active confirmed Problem 508449621 Encounter for ot her preprocedural examination (Z01.818) Active confirmed Problem 017446433 FH: colon cancer (Z80.0) Active confirmed Problem 771019509 Gastroesophageal reflux disease, unspecified whether esophagitis present (K21.9) Active confirmed Problem 283351724 Abdominal sympto ms (R19.8) Active confirmed Vital Signs Temperature 98.0 degrees Fahrenheit 01/09/2024 Blood pressure diastolic 00 mm Hg 01/09/2024 Height 65.5 in 01/09/2024 Blood pressure systolic 000 mm Hg 01/09/2024 Weight 157 lbs 01/09/2024 BMI 25.73 kg/m2 01/09/2024 Encounters Encounter Location Date Provider Diagnosis [facility] [address] [place] [address] 01/09/2024 Harrison Mendoza Jr Gastroesophageal reflux disease, unspecified whether esophagitis present K21.9 and FH: colon cancer Z80.0 Assessments Encounter Date Diagnosis (ICD Code) Assessment Notes Treatment Notes Treatment Clinical Notes Section Notes 01/09/2024 FH: colon cancer (ICD-10 - Z80.0) We recommended she continue to follow diet, lifestyle modifications, and weight management regarding the treatment of reflux. She can use bfiy-fwb-npgoj er antacids as needed. She is up-to-date on colorectal cancer screening. Followup will be in one year. 01/09/2024 Gastroesophageal reflux disease, unspecified whether esophagitis present (ICD-10 - K21.9) Digestive diseases material was printed We recommended she continue to follow diet, lifestyle modifications, and weight management regarding the treatment of reflux. She can use ogyd-pgt-ltscc er antacids as needed. She is up-to-date on colorectal cancer screening. Followup will be in one year. Plan Of Treatment Future Test Test Name Order Date COLONOSCOPY 06/04/2014 COLONOSCOPY 03/23/2021 Next Appt Details Provider Name:Harrison godfrey , 01/07/2025 11:00:00 AM, [address], [address], [place], [address], Insurance Providers Payer Name Payer Address Payer Phone Subscriber Number Group Number Insured Name Patient Relationship to Insured Coverage Start Date Coverage End Date [facility] [address] [place] [phone] [id number] PEMA ADAME Self - patient is the insured Medical (General) History Medical History History ICD Code Colonoscopy 04/02 for family history, nor mal, five-year followup optional Anxiety Elevated cholesterol Environmental allergies COPD Hearing loss 11/21/23-total hip replacement left Surgical History Surgery Date(Month/Year) D&C Dental extractions and implants Left hip surgery total hip replacement left 11/21/23
== END 2024-12-12 14:42 | disposition home or self-care (01) ==
LOC: HO.HMCHD 13:50
PROVIDERS: PCP Internal Medicine; Visit Provider Physician Assistant
DX: J44.9 Chronic obstructive pulmonary disease, unspecified (principal); E78.5 Hyperlipidemia, unspecified; F39 Unspecified mood [affective] disorder; F17.210 Nicotine dependence, cigarettes, uncomplicated

== ENCOUNTER → 2024-12-12 13:50 | Outpatient (BNVA) | payer MEDICARE, SELFPAY | PROVIDERS: PCP Internal Medicine; Visit Provider Physician Assistant | DX: F32.A Depression, unspecified (principal); F39 Unspecified mood [affective] disorder; J44.9 Chronic obstructive pulmonary disease, unspecified; E78.5 Hyperlipidemia, unspecified; F17.210 Nicotine dependence, cigarettes, uncomplicated; Z79.899 Other long term (current) drug therapy | CPT/HCPCS: 96127; 99202 ==

== ENCOUNTER 2025-06-12 07:17 | Outpatient (REF) | payer MEDICARE, SELFPAY ==
--- OUTSIDE RECORDS SUMMARY | 2025-06-12 07:21 | XMS_ITS | Patient Health Record ---
Author Organization [facility] Address [address] [place] [address] Care Team Providers Care Screw Machine Tender Name Role Phone Ginny Gipson M.D. Primary Care Provider Unavail able Harrison Mendoza Jr Unavailable Allergies Allergen (clinical drug ingredient) Drug/Non Drug Allergy documented on EMR Reaction Allergy Type Onset Date Status naproxen Naprosyn Unknown Drug Allergy Active celecoxib CeleBREX Unknown Drug Allergy Active ketorolac toradol (uncoded) Unknown Allergy Ac tive Reason For Referral No Information Medications Medication SIG (Take, Route, Frequency, Duration) Notes Start Date End Date Status Vitamin C Active Probiotic Active CeleXA 20 MG 1 tablet Orally Once a day Active Simvastatin 40 MG 1 tablet in the even ing Orally Once a day Active Calcium Active Progesterone Active Multi Vitamin - 1 tablet Orally Once a day; Duration: 30 day(s) Active Multi Vitamin/Minerals Orally Active Vitamin D Active Citalopram Hydrobromide 10 MG 1 tablet Orally Once a day; Duration: 30 day(s) Active Latanoprost Active Immunizations Vaccine Route Administration Date Status Comme nts Influenza Unknown 04/13/2020 Administered Influenza Unknown 07/04/2022 Administered Influenza Unknown 07/02/2023 Administered Influenza Unknown 05/27/2024 Administered Problems Problem Type SNOMED Code ICD Code Onset Dates Problem Status W/U Status Risk Notes Problem Colon cancer screening (757950791) Colon cancer screening (Z12.11) Active confirmed Problem Pre-procedure evaluation check (144234428) Encounter for other preprocedural examination (Z01.818) Active confirmed Problem Family history of malignant neoplasm of gastrointestinal tract (188289767) FH: colon cancer (Z80.0) Active confirmed Problem Gastroesophageal reflux disease (747241556) Gastroesophageal reflux disease, unspecified whether esophagitis present (K21.9) Active confirmed Problem Finding of abdomen (533123853) Abdominal symptoms (R19.8) Active confirmed Vital Signs Temperature 98.0 degrees Fahrenheit 01/07/2025 Blood pressure diastolic 01 mm Hg 01/07/2025 Height 65.5 in 01/07/2025 Blood pressure systolic 001 mm Hg 01/07/2025 Weight 159.0 lbs 01/07/2025 BMI 26.05 kg/m2 01/07/2025 Encounters Encounter Location Date Provider Diagnosis [facility] [address] [place] [address] 01/07/2025 Harrison Mendoza Jr Gastroesophageal reflux disease, unspecified whether esophagitis present K21.9 and Colon cancer screening Z12.11 Assessments Encounter Date Diagnosis (ICD Code) Assessment Notes Treatment Notes Treatment Clinical Notes Section Notes 01/07/2025 Colon cancer screening (ICD-10 - Z12.11) Currently, Pema is doing well. We recommended she continued diet and lifestyle modifications. We discussed pros and cons of endoscopy today. She prefers to defer this for the time being. We discussed diet, lifestyle modifications, and weight management regarding the treatment reflux. Follow-up will be in 6 to 12 months. 01/07/2025 Gastroesophageal reflux disease, unspecified whether esophagitis present (ICD-10 - K21.9) Currently, Pema is doing well. We recommended she continued diet and lifestyle modifications. We discussed pros and cons of endoscopy today. She prefers to defer this for the time being. We discussed diet, lifestyle modifications, and weight management regarding the treatment reflux. Follow-up will be in 6 to 12 months. Plan Of Treatment Future Test Test Name Order Date COLONOSCOPY 06/04/2014 COLONOSCOPY 03/23/2021 Next Appt Details Provider Name:Harrison godfrey Jr, 01/07/2026 01:15:00 PM, [address], [address], [place], [address], Insurance Providers Payer Name Payer Address Payer Phone Subscriber Number Group Number Insured Name Patient Relationship to Insured Coverage Start Date Coverage End Date [facility] [address] [place] [phone] [id number] PEMA ADAME Self - patient is the insured 4 Medical (General) History Medical History History ICD Code Colonoscopy 04/02 for family history, nor mal, five-year followup optional Anxiety Elevated cholesterol Environmental allergies COPD Hearing loss 11/21/23-total hip replacement left Surgical History Surgery Date(Month/Year) total hip replacement left 11/21/23 Left hip surgery Dental extractions and implants D&C
[2025-06-12 07:31] LABS: MANUAL DIFF FLAG NO
[2025-06-12 07:55] LABS: Hematocrit 47.4 % (37.0-47.0); Hemoglobin 15.4 g/dl (12.0-16.0); Imm Gran Abs Auto 0.02 X10*3/uL (0.00-0.03); Imm Gran Pct Auto 0.2 % (0.0-0.4); Lymphocytes Absolute Auto 3.2 X10*3/uL (1.2-4.9); Mean Corpuscular HGB Conc 32.5 g/dl (31.0-35.0); Mean Corpuscular Hemoglobin 30.5 pg (27.0-33.0); Mean Corpuscular Volume 93.9 fL (80.0-98.0); NRBC Abs Auto 0.000 X10*3/uL (0.0-0.012); NRBC Pct Auto 0.0 /100WBC (0.0-0.2); Platelet Count 410 X10*3/uL (160-400); Red Blood Count 5.05 X10*6/uL (4.20-5.50); White Blood Count 9.0 X10*3/uL (4.8-10.8)
[2025-06-12 08:40] LABS: Anion Gap 10 (12-20); Blood Urea Nitrogen 13 mg/dL (9-16); Calcium 9.1 mg/dL (8.4-10.2); Carbon Dioxide 27 mmol/L (22-29); Chloride 108 mmol/L (96-108); Cholesterol 190 mg/dL (<200); Estimated Glomerular Filt Rate > 60; HDL Cholesterol 68 mg/dL (>40); Potassium 4.0 mmol/L (3.3-5.1); Sodium 141 mmol/L (135-145); Triglycerides 136 mg/dL (<150)
== END 2025-06-12 07:18 | disposition home or self-care (01) ==
LOC: HO.LAB 07:17
PROVIDERS: PCP Physician Assistant; Visit Provider Physician Assistant
DX: Z13.1 Encounter for screening for diabetes mellitus (principal); J44.9 Chronic obstructive pulmonary disease, unspecified; E78.5 Hyperlipidemia, unspecified; F39 Unspecified mood [affective] disorder
CPT/HCPCS: 36415; 80048; 80061; 83036; 84443; 85025

== ENCOUNTER 2025-06-19 15:05 | Outpatient (AMB) | payer MEDICARE, SELFPAY ==
[2025-06-19 14:45] VITALS: BP 144/65; PULSE 76; TEMP 36.6; O2SAT 96; BMI 26.4
--- NOTE | 2025-06-19 14:45 | A.OFFPC_ITS ---
Vital Signs 06/19/25 14:45 Height 5 ft 5 in Weight 71.894 kg BMI 26.4 BP 144/65 H Blood Pressure Location Rt brachial Position Sitting Pulse 76 Pulse Source Pulse Oximeter Temp 97.9 F Temp Source Temporal Artery Scan Pulse Oximetry (%) 96 Oxygen Delivery Method Room Air Intake Visit Reasons: Annual Tick Eradicator Required: No Accompanied by: Self / Same As Patient Allergies buspirone (From BUSPAR) Allergy (Intermediate, Verified 06/19/25 14:45) TREMORS,PANIC ATTACK prednisone (PREDNISONE) Allergy (Intermediate, Verified 06/19/25 14:45) BLEEDING, agitation bupropion (From WELLBUTRIN) Adverse Reaction (Severe, Verified 06/19/25 14:45) AUDITORY HALLUCINATIONS aripiprazole (From ABILIFY) Adverse Reaction (Intermediate, Verified 06/19/25 14:45) DOUBLE VISION,PANIC ATTACK ketorolac (From Toradol) Adverse Reaction (Intermediate, Verified 06/19/25 14:45) dry heaving paroxetine (From PAXIL) Adverse Reaction (Intermediate, Verified 06/19/25 14:45) PANIC ATTACKS procaine (From NOVOCAIN) Adverse Reaction (Mild, Verified 06/19/25 14:45) fregoso when wears off CHLORINE Adverse Reaction (Intermediate, Uncoded 11/17/24 10:46) hayfever type reaction drug sensitivity Adverse Reaction (Intermediate, Uncoded 11/17/24 10:46) side effects from many meds Medication List - Last Reconciled 06/19/25 by HIEN Lindsay acetaminophen 650 mg (2 x 325 mg) PO Q6H PRN 30 days albuterol sulfate 90 mcg/actuation 2 puffs PO Q6H PRN ascorbic acid (vitamin C) ER (Vitamin C) 500 mg PO BEDTIME cholecalciferol (vitamin D3) (Vitamin D3) 50 mcg PO QAM citalopram 10 mg PO QAM lactobacillus comb no.10 (Probiotic) 20,000 mmu cells PO QAM latanoprost 0.005% 1 drp ophthalmic (eye) BEDTIME multivitamin 1 tab PO QAM simvastatin 40 mg PO BEDTIME Tobacco use date assessed: 06/19/25 Fall risk assessment: No Falls in past year Last assessed Fall Risk: 06/19/25 Dental Screening Dental Screen Date: 06/19/25 Did you have a dental visit in the last 12 months?: Yes Did you have a dental problem in the last 6 months where you did not have access to dental care?: No HPI HPI Comments History of Present Illness Details 75-year-old female with history of depre ssion, hyperlipidemia, COPD, hearing loss, alcohol dependence in remission presenting to the office today for annual physical exam and for management of chronic conditions and for annual physical exam. Depression/anxiety-follows with Dr. Huynh and his PA Rachna in [place]. Citalopram down to 5mg by Rachna. Would like ot ultimately wean off Hyperlipidemia-simvastatin 40 mg COPD-albuterol PRN Osteoporosis-lowest T-score-2.9 in the lumbar spine Hearing loss- went to [facility] yesterday for hearing test, but didnt occur. Only had a screening. Interested in new referral. Has tinnitis. Wears hearing aids but not all that helpful Prediabetes- new dx. A1c 5.8% Smoking- smokes 1ppd. [facility] follows with Dr. Mendoza Concerns: As above Health maintenance: Last mammogram 06/2024, negative for malignancy, upcoming mammo 07/2025 Last DEXA scan 06/2024 colon cancer- due to colo- appt 12/06 ROS: General: No fevers, malaise, unintentional weight loss HEENT: No blurred vision, diplopia. No sore throat, nasal congestion, rhinorrhea, sinus pain, ear pain. No hearing loss Neck - no adenopathy Cardiovascular: No chest pain, palpitations, or leg edema Respiratory: No shortness of breath, wheezing, cough Breast: No pain, palpable lumps, nipple inversion GI: No dysphagia, odynophagia, globus sensation. No abdominal pain, nausea, vomiting, diarrhea, constipation, melena, hematochezia : No dysuria, hematuria, increased urinary frequency, decreased urinary output. CHERRY CUTTER: No abn vaginal bleeding or discharge MSK: No myalgia, back pain, arthralgias Neuro: No headaches, weakness, paresthesias Psych: no depression/anxiery. No AH/VH. No SI/HI Skin: No rashes or lesions EXAM: Constitutional - Awake and Alert, No apparent distress Eyes - PERRLA, EOMI. Anicteric Ears - external ears normal, canals clear, TMs intact and pearly lorenzo with good cone of light Nose- septum midline, nares clear, no sinus tenderness Mouth/throat- mucosa moist, tongue and uvula midline, no erythema/edema or tonsillar adenopathy. Neck-trachea midline, thyroid symmetric without palpable nodules, no adenopathy Cardiovascular - S1S2, RRR, No edema Respiratory - Normal lung expansion, Normal respiratory effort, No respiratory distress, CTA bilaterally Gastrointestinal - NT / ND; +BS; No rebound or guarding - No CVA tenderness Extremities - no calf tenderness bilaterally, no swelling Musculoskeletal - Normal inspection, normal ROM Skin - Warm/Dry, no concerning lesions Neurological - Alert & oriented x3, CN II-XII in tact, 5/5 strength BUE and BLE, 2+ patellar reflexes, sensation intact Psychological - Appropriate affect [facility] Medical History (Updated 06/19/25 @ 15:34 by HIEN Lindsay) Osteoporosis Prediabetes Nicotine dependence, cigarettes, uncomplicated Alcohol dependence in remission Family history of anesthesia complication Anesthesia complication Arthritis Depression RSV (respiratory syncytial virus infection) Hearing loss COPD (chronic obstructive pulmonary disease) Elevated cholesterol Surgical History S/P total left hip arthroplasty (~11/21/23) History of dental spiritism History of hip surgery Hx of dilation and curettage H/O colonoscopy Family History Mother No problems noted. Father No problems noted. Sister Mental health disorder Social History Household Members: None Household Members Other:: lives in 3 family and daughter in another apt Housing: House Are you a primary adult care provider to a significant other at home: No Do you presently have visiting nurse or other home services: No Patient Tobacco Use Status: Current everyday Tobacco user Tobacco use type: Cigarette Cigarette Packs Per Day: 1 Cigarettes Per Day: 10 Years Smoked: 40 e-Cigarette/Vaping Use: Currently Using service: No Current occupational status: retired Cognitive needs: No Hearing needs: Yes (bilateral hearing aids) Vision needs: Yes (rx glasses) Questionnaire PHQ-9 Over the last 2 weeks, how often have you been bothered by any of the following problems? 1. Little interest or pleasure in doing things: not at all 2. Feeling down, depressed, or hopeless: several days 3. Trouble falling or staying asleep, or sleeping too much: nearly every day 4. Feeling tired or having little energy: several days 5. Poor appetite or overeating: not at all 6. Feeling bad about yourself - or that you are a failure or have let yourself or your family down: not at all 7. Trouble concentrating on things, such as reading the newspaper or watching television: not at all 8. Moving or speaking so slowly that other people could have noticed. Or the opposite - being so fidgety or restless that you have been moving around a lot more than usual: not at all 9. Thoughts that you would be better off or of hurting yourself in some way: not at all Total score: 5 Source: Developed by Drs. Zen Rodas, Damari Nichols, Ion Corral and colleagues, with an educational gareth from [employer]. Thrive Questionnaire Date Thrive assessed: 06/19/25 I am a: Patient Within the past 12 months, did the food you bought not last and you didn't have the money to get more?: Never true Within the past 12 months, did you worry whether your food would run out before you got money to buy more?: Never true Do you have trouble paying for medicines?: No Do you have trouble getting transportation to medical appointments?: No Do you have trouble paying your heating and electricity bill?: No Do you have trouble taking care of your child, family member or friend?: No Do you have trouble with day-to-day activities such as bathing, preparing meals, shopping, managing finances, etc.?: No Are you currently unemployed and looking for a job?: No Are you interested in more education?: No THRIVE Score: 0 AUDIT C Alcohol Use Questionnaire (AUDIT-C) 1. How often do you have a drink containing alcohol?: Never 3. How often do you have six or more drinks on one occasion?: Never Total Score: 0 PATRICIA-7 AMB Questionnaire PATRICIA-7 Date PATRICIA - 7 assessed: 06/19/25 Feeling nervous, anxious, or on edge: 0 = Not at all Not being able to stop or control worryin = Not at all Worrying too much about different things: 0 = Not at all Trouble relaxin = Not at all Being so restless that it is hard to sit still: 0 = Not at all Becoming easily annoyed or irritable: 0 = Not at all Feeling afraid as if something awful might happen: 0 = Not at all Total PATRICIA-7 score (0-4 normal; 5-9 mild; 10-14 moderate; 15-21 severe): 0 Source: Developed by Drs. Zen Rodas, Damari Nichols, Ion Corral and colleagues, with an educational gareth from [employer]. Physical exam (Primary Care) Vital Signs: Last Vital Signs Temp 97.9 F 06/19/25 14:45 Pulse 76 06/19/25 14:45 BP 144/65 H 06/19/25 14:45 Pulse Ox 96 06/19/25 14:45 Oxygen Delivery Method Room Air 06/19/25 14:45 BMI result Body Mass Index 26.4 Tobacco/Smoking Status: Tobacco use Status Tobacco use date assessed 06/19/25 06/19/25 14:46 Patient Tobacco Use Status Current everyday Tobacco 06/19/25 14:46 Tobacco use type Cigarette 06/19/25 14:46 e-Cigarette/Vaping Use Currently Using 06/19/25 14:46 PHQ-9: PHQ-9 Score PHQ-9: Total score 5 06/19/25 15:47 Thrive Assessment: Date of Thrive Assessment Date Thrive assessed 06/19/25 06/19/25 14:46 Coding Level of Care Code Est Pt Level 4 (04028) Est Pt Prev Care >65y(27449) Diagnoses Routine medical exam Z00.00 Mood disorder F39 Hyperlipemia E78.5 COPD (chronic obstructive pulmonary disease) J44.9 Nicotine dependence, cigarettes, uncomplicated F17.210 Prediabetes R73.03 Osteoporosis M81.0 Comment Modifier 25 Assessment & Plan Assessment & Plan (1) Routine medical exam: Code(s): Z00.00 - Encounter for general adult medical examination without abnormal findings Category: Medical Plan: 75 year old female presenting for management of chronic conditions and annual physical exam (2) Mood disorder: Code(s): F39 - Unspecified mood [affective] disorder Category: Medical Plan: Stable overall following recent decrease of celexa. Continue with current dose. Follow up with psychiatry and therapist as scheduled. No alarm symptoms. (3) Hyperlipemia: Code(s): E78.5 - Hyperlipidemia, unspecified Category: Medical Plan: Controlled. Continue simvastatin. Diet lower in saturates fats and highly processed foods. (4) COPD (chronic obstructive pulmonary disease): Comment: dx by XRAY-no inhalers or oxygen-some SOB on exertion if carrying heavy items Code(s): J44.9 - Chronic obstructive pulmonary disease, unspecified Category: Medical Plan: No exaceration. Continue albuterol prn. Smoking cessation (5) Nicotine dependence, cigarettes, uncomplicated: Comment: 40pyh Code(s): F17.210 - Nicotine dependence, cigarettes, uncomplicated Category: Medical Plan: Smoking cessation advised. Not interested in NRT. Continue with lung cancer screening. Information provided for group hypnosis which she is interested in (6) Prediabetes: Code(s): R73.03 - Prediabetes Category: Medical Plan: Diet low in refined sugars and highly processed foods. Regular exercise. (7) Osteoporosis: Code(s): M81.0 - Age-related osteoporosis without current pathological fracture Category: Medical Plan: Calcium and vitamin D and weight bearing exercise. Plan Follow up in 6 months. Labs prior to visit. Routine screening reviewed Continue with screening mammograms and dexa scans Continue following for annual skin exams and use sun protection Annual eye exams Wear seat belt in car Recommend regular exercise and healthy diet Referred for hearing screen Orders: Orders Basic Metabolic Panel 6 Months E78.5 - Hyperlipidemia, unspecified, M81.0 - Age-related osteoporosis without current pathological fracture, R73.03 - Prediabetes Lipid Panel 6 Months E78.5 - Hyperlipidemia, unspecified, M81.0 - Age-related osteoporosis without current pathological fracture, R73.03 - Prediabetes Hemoglobin A1c 6 Months E78.5 - Hyperlipidemia, unspecified, M81.0 - Age- related osteoporosis without current pathological fracture, R73.03 - Prediabetes Vitamin D 25-OH Total 6 Months E78.5 - Hyperlipidemia, unspecified, M81.0 - Age-related osteoporosis without current pathological fracture, R73.03 - Prediabetes Referrals Audiology Referral Z97.4 - Presence of external hearing-aid Medications: Changed From citalopram 10 mg PO QAM To citalopram 5 mg PO QAM
== END 2025-06-19 15:55 | disposition home or self-care (01) ==
LOC: HO.HMCHD 15:05
PROVIDERS: PCP Internal Medicine; Visit Provider Physician Assistant
DX: Z00.00 Encounter for general adult medical examination without abnormal findings (principal); F39 Unspecified mood [affective] disorder; E78.5 Hyperlipidemia, unspecified; J44.9 Chronic obstructive pulmonary disease, unspecified; F17.210 Nicotine dependence, cigarettes, uncomplicated; R73.03 Prediabetes; M81.0 Age-related osteoporosis without current pathological fracture

== ENCOUNTER → 2025-06-19 15:05 | Outpatient (BNVA) | payer MEDICARE, SELFPAY | PROVIDERS: PCP Internal Medicine; Visit Provider Physician Assistant | DX: Z00.00 Encounter for general adult medical examination without abnormal findings (principal); F39 Unspecified mood [affective] disorder; E78.5 Hyperlipidemia, unspecified; J44.9 Chronic obstructive pulmonary disease, unspecified; R73.03 Prediabetes; M81.0 Age-related osteoporosis without current pathological fracture; F17.210 Nicotine dependence, cigarettes, uncomplicated; Z71.6 Tobacco abuse counseling | CPT/HCPCS: 99397 ==

== ENCOUNTER 2025-07-30 15:37 | Outpatient (REF) | payer MEDICARE, SELFPAY ==
--- OUTSIDE RECORDS SUMMARY | 2025-07-30 19:27 | XMS_ITS | Patient Health Record ---
Author Organization [facility] Address [address] [place] [id number] Care Team Providers Care Consumer Education Specialist Name Role Phone Ginny Gipson M.D. Primary Care Provider Unavail able Harrison Mendoza Jr Unavailable Allergies Allergen (clinical drug ingredient) Drug/Non Drug Allergy documented on EMR Reaction Allergy Type Onset Date Status ketorolac toradol (uncoded) Unknown Allergy Ac tive celecoxib CeleBREX Unknown Drug Allergy Active naproxen Naprosyn Unknown Drug Allergy Active Reason For Referral No Information Medications Medication SIG (Take, Route, Frequency, Duration) Notes Start Date End Date Status Vitamin C Active Probiotic Active CeleXA 20 MG Tablet 1 tablet Orally Once a day Active Simvastatin 40 MG Tablet 1 tablet in the evening Orally Once a day Active Calcium Active Progesterone Active Multi Vitamin - Tablet 1 tablet Orally O nce a day; Duration: 30 day(s) Active Multi Vitamin/Minerals Tablet Orally Active Vitamin D Active Citalopram Hydrobromide 10 MG Tablet 1 tablet Orally Once a day; Duration: 30 day(s) Active Latanoprost Active Immunizations Vaccine Route Administration Date Status Comme nts Influenza Unknown 04/13/2020 Administered Influenza Unknown 07/04/2022 Administered Influenza Unknown 07/02/2023 Administered Influenza Unknown 05/27/2024 Administered Social History Social History Additional Details Category Social Info Options Details Miscellaneous: Marital status: Occupation: retired Problems Problem Type SNOMED Code ICD Code Onset Dates Problem Status W/U Status Risk Notes Problem Colon cancer screening (507367396) Colon cancer screening (Z12.11) Active confirmed Problem Pre-procedure evaluation check (844036751) Encounter for other preprocedural examination (Z01.818) Active confirmed Problem Family history of malignant neoplasm of gastrointestinal tract (827811429) FH: colon cancer (Z80.0) Active confirmed Problem Gastroesophageal reflux disease (697035389) Gastroesophageal reflux disease, unspecified whether esophagitis present (K21.9) Active confirmed Problem Finding of abdomen (255413885) Abdominal symptoms (R19.8) Active confirmed Vital Signs Temperature 98.0 degrees Fahrenheit 01/07/2025 Blood pressure diastolic 01 mm Hg 01/07/2025 Height 65.5 in 01/07/2025 Blood pressure systolic 001 mm Hg 01/07/2025 Weight 159.0 lbs 01/07/2025 BMI 26.05 kg/m2 01/07/2025 Encounters Encounter Location Date Provider Diagnosis [facility] [address] [place] [address] 01/07/2025 Harrison Mendoza Jr Gastroesophageal reflux disease, [...] Name:Harrison godfrey Jr, 01/07/2026 01:15:00 PM, [address], [address], [place], [address], Insurance Providers Payer Name Payer Address Payer Phone Subscriber Number Group Number Insured Name Patient Relationship to Insured Coverage Start Date Coverage End Date [facility] [address] [facility] [place] [phone] [id number] PEMA ADAME Self - patient is the insured 4 Medical (General) History Medical History History ICD Code Colonoscopy 04/02 for family history, nor mal, five-year followup optional Anxiety Elevated cholesterol Environmental allergies COPD Hearing loss 11/21/23-total hip replacement left Surgical History Surgery Date(Month/Year) D&C Dental extractions and implants Left hip surgery total hip replacement left 11/21/23
== END 2025-07-30 15:38 | disposition home or self-care (01) ==
LOC: HO.MAMMO 15:37
PROVIDERS: PCP Physician Assistant; Visit Provider Internal Medicine
DX: Z12.31 Encounter for screening mammogram for malignant neoplasm of breast (principal)
CPT/HCPCS: 77063; 77067

== ENCOUNTER → 2025-07-30 15:45 | Outpatient (BNV) | payer MEDICARE, SELFPAY | PROVIDERS: PCP Physician Assistant; Visit Provider Internal Medicine | DX: Z12.31 Encounter for screening mammogram for malignant neoplasm of breast (principal) | CPT/HCPCS: 77063; 77067 ==

== ENCOUNTER 2025-08-12 16:23 | Outpatient (REF) | payer MEDICARE, SELFPAY ==
--- NOTE | ~2025-08-12 | CT_ITS ---
EXAMINATION: CT LUNG SCREENING HISTORY: F17.210 - Nicotine dependence, cigarettes, uncomplicated TECHNIQUE: Low dose axial images were obtained from the sternal notch to upper abdomen without IV contrast per standard departmental protocol. Sagittal and coronal reformatted images were also obtained and reviewed. One or more of the following techniques was used for dose reduction: Automated exposure control, adjustment of the mA and/or kV according to patient size, use of iterative reconstruction technique. DLP: 79 mGy-cm COMPARISON: Comparison is made with the prior examination dated 07/15/2024. FINDINGS: Lung nodules: There is a 2 mm nodule in the right upper lobe (series 4, image 60). There is a calcified granuloma more inferiorly in the right upper lobe (series 4, image 86). No suspicious pulmonary nodules are identified. Emphysema: none Coronary Calcification: mild Aortic Arch Calcification: mild Potentially Significant Incidentals : none Additional Chest Findings: There is no pleural or pericardial effusion. No mediastinal or axillary lymphadenopathy is identified. Visualized upper abdomen: The visualized portions of the liver, spleen, and adrenals have an unremarkable unenhanced appearance. CT/CT lung screening IMPRESSION: No suspicious pulmonary nodules are identified. LUNG-RADS ASSESSMENT: Lung-RADS 2: Benign MANAGEMENT: Continue annual screening with LDCT in 12 months Category S: N/A Electronically signed by: Zen Islas MD 08/14/2025 07:05 AM [facility]
--- OUTSIDE RECORDS SUMMARY | 2025-08-12 16:26 | XMS_ITS | Patient Health Record ---
Author Organization [facility] Address [address] [place] [id number] Care Team Providers Care Full Stack Python Developer Name Role Phone Ginny Gipson M.D. Primary Care Provider Unavail able Harrison Mendoza Jr Unavailable [phone] Allergies Allergen (clinical drug ingredient) Drug/Non Drug [...] Status Risk Notes Problem Colon cancer screening (812773980) Colon cancer screening (Z12.11) Active confirmed Problem Pre-procedure evaluation check (412739701) Encounter for other preprocedural examination (Z01.818) Active confirmed Problem Family history of malignant neoplasm of gastrointestinal tract (339893603) FH: colon cancer (Z80.0) Active confirmed Problem Gastroesophageal reflux disease (487956187) Gastroesophageal reflux disease, unspecified whether esophagitis present (K21.9) Active confirmed Problem Finding of abdomen (094322975) Abdominal symptoms (R19.8) Active confirmed Vital Signs Temperature 98.0 degrees Fahrenheit 01/07/2025 Blood pressure diastolic 01 mm Hg 01/07/2025 Height 65.5 in 01/07/2025 Blood pressure systolic 001 mm Hg 01/07/2025 Weight 159.0 lbs 01/07/2025 BMI 26.05 kg/m2 01/07/2025 Encounters Encounter Location Date Provider Diagnosis [facility] [address] [place] [address] 01/07/2025 Harrison Mendoza Jr Gastroesophageal reflux disease, [...] Name:Harrison godfrey Jr, 01/07/2026 01:15:00 PM, [address], [address], [place], [address], Insurance Providers Payer Name Payer Address Payer Phone Subscriber Number Group Number Insured Name Patient Relationship to Insured Coverage Start Date Coverage End Date [facility] [address] [facility] [place] [phone] [id number] PEMA ADAME Self - patient is the insured 4 Medical (General) History Medical History History ICD Code Colonoscopy 04/02 for family history, nor mal, five-year followup optional Anxiety Elevated cholesterol Environmental allergies COPD Hearing loss 11/21/23-total hip replacement left Surgical History Surgery Date(Month/Year) D&C Dental extractions and implants Left hip surgery total hip replacement left 11/21/23
== END 2025-08-12 16:24 | disposition home or self-care (01) ==
LOC: HO.CT 16:23
PROVIDERS: PCP Physician Assistant; Visit Provider Physician Assistant Medical
DX: F17.210 Nicotine dependence, cigarettes, uncomplicated (principal)
CPT/HCPCS: 71271

== ENCOUNTER → 2025-08-12 16:24 | Outpatient (BNV) | payer MEDICARE, SELFPAY | PROVIDERS: PCP Physician Assistant; Visit Provider Radiology Diagnostic Radiology | DX: F17.210 Nicotine dependence, cigarettes, uncomplicated (principal) | CPT/HCPCS: 71271 ==